=== PATIENT | male | born 2000 | race Caucasian/White ===

== ENCOUNTER 2020-11-17 14:06 | Outpatient (CLI) | payer MEDICAID, SELFPAY ==
--- NOTE | 2020-11-17 14:25 | XR_ITS ---
WS: [id number] RIGHT ANKLE: 3 VIEW(S) TECHNIQUE: AP, oblique(s) and lateral. HISTORY: M25.571 - Pain in right ankle and joints of right foot COMPARISON: 01/04/2019 Very slight defect in the cortex along the lateral talus seen only on the oblique image. This is a po ssible cortical injury. Otherwise no fractures are identified. No joint effusion or widening of the ankle mortise. No significant degenerative changes at the joint spaces. Moderate soft tissue edema along the lateral ankle. XR/XR ankle RT min 3V* [id number] IMPRESSION: 1. Possible cortical injury involving the lateral talus is seen only on the ob lique view. Otherwise no fracture. If further evaluation is necessary CT may pr ovide additional information. 2. Moderate soft tissue edema laterally.
== END 2020-11-17 14:07 | disposition home or self-care (01) ==
PROVIDERS: Visit Provider Podiatrist Foot & Ankle Surgery
DX: M25.571 Pain in right ankle and joints of right foot (principal); R60.0 Localized edema
CPT/HCPCS: 73610

== ENCOUNTER 2021-03-08 09:56 | Emergency (ER) | payer MEDICAID, SELFPAY ==
[2021-03-08] VITALS (13 sets, daily range): BP systolic 93–129; BP diastolic 53–83; PULSE 94–143; RESP 18–22; TEMP 36.6–37.1; O2SAT 95–99; BMI 25.1
--- NOTE | 2021-03-08 10:02 | ECG_ITS ---
[facility] Test Date: 2021-03-08 Pat Name: So Brenner Department: Room: Gender: Male Director Of Digital Platforms: : 2000 Requested By: Jany Ward Order Number: [id number] Leonard MD: Jane Pressley M.D. Measurements Intervals [place] Rate: 140 P: 62 ME: 148 QRS: -87 QRSD: 91 T: 66 QT: 364 QTc: 556 Interpretive Statements SINUS TACHYCARDIA LEFT AXIS DEVIATION [QRS AXIS < -30] POOR ANTERIOR R WAVE PROGRESSION No previous ECG available for comparison Electronically Signed On 03-08-2021 22:36:11 GETTER FILLER by Jane Pressley M.D. [id number]
--- NOTE | 2021-03-08 10:02 | XR_ITS ---
WS: [id number] Portable AP upright chest, 03/08/2021 Clinical Data: palpitations Comparison: None. Findings: No nodules, masses or effusions are seen. The heart is enlarged. The pulmonary vascularity is not increased. No pneumonia or pneumothorax is seen. XR/XR chest 1V portable [id number] Impression: Cardiomegaly
[2021-03-08 12:27] LABS: Basophils # 0.1 10^3/uL (0.0-0.1); Basophils % 0.9 %; Eosinophils % 0.1 %; Hematocrit 51.1 % (42.0-52.0); Hemoglobin 16.8 g/dL (11.7-16.6); Lymphocytes # 3.4 10^3/uL (1.5-6.5); Lymphocytes % 30.3 %; Mean Corpuscular HGB Conc 32.9 g/dL (30.0-36.0); Mean Corpuscular Hemoglobin 30.4 pg (28.0-34.0); Mean Corpuscular Volume 92.4 fl (80-94); Mean Platelet Volume 11.6 fL (7.4-10.4); Monocytes # 0.7 10^3/uL (0.2-0.9); Monocytes % 6.6 %; Neutrophils # 6.88 10^3/uL (1.8-8.0); Neutrophils % 61.9 %; Nucleated Red Blood Cells % 0 %; Platelet Count 204 10^3/cmm (130-400); Red Blood Count 5.53 10^6/uL (4.1-5.3); Red Cell Distribution Width 15.3 % (12.1-15.1); White Blood Count 11.1 10^3/uL (4.5-13.0)
[2021-03-08 12:44] LABS: Alanine Aminotransferase 55 U/L (0-41); Albumin Level 3.9 g/dL (3.5-5.2); Alkaline Phosphatase 54 IU/L (40-130); Anion Gap 21.9 (5-19); Aspartate Amino Transferase 57 U/L (0-40); Blood Urea Nitrogen 22 mg/dL (6-20); Calcium 9.3 mg/dL (8.5-10.5); Carbon Dioxide 21 mmol/L (22-29); Chloride 94 mmol/L (98-107); Globulin 2.6 g/dL (1.3-4.6); Glomerular Filtration Rate 64.6 mL/min (90-130); Glucose 87 mg/dL (65-115); Osmolality Calculated 277 mOsm/kg (285-295); Potassium 4.9 mmol/L (3.5-5.1); Sodium 132 mmol/L (136-145); Total Bilirubin 3.2 mg/dL (0.15-1.2); Total Protein 6.5 g/dL (6.6-8.7)
[2021-03-08 13:36] LABS: Troponin T (5th) Once 26 ng/L (0-15)
[2021-03-08 13:45] LABS: NT Pro B Type Natriuretic Pept 11573 pg/mL (0-125)
--- NOTE | 2021-03-08 14:23 | ED_ITS ---
Documented by User: Kenneth Samuels DO 03/09/21 06:40 HPI - General Adult General: Chief complaint: General Medical Stated complaint: Heart racing, throwing up Time Seen by Provider: 03/08/21 14:18 History of Present Illness: HPI narrative: 20-year-old male presents emergency room complaining of generalized fatigue palpitations elevated heart rate shortness of breath. Said this for about the last month and a half. Not really having any chest pain at this time. He does get short of breath when laying down or with any exertion. Recently stopped drinking about a month ago prior to that he was drinking up to a pint of vodka per day. He also has been throwing up a lot recently. He has been using some pxdm-cke-lneytll Primatene Mist and oxymetazoline nasal spray for upper respiratory symptoms. He denies any fever sweats or chills no hematochezia melena hematemesis coffee-ground emesis he has been mildly constipated. Interestingly he has a family history of several family members that have what sounds like by his descriptions cardiomyopathy and congestive heart failure. Onset (ago): day(s) Severity: moderate Relieving factors: rest Exacerbating factors: other (Orthopnea, exertion) Associated symptoms: Reports decreased appetite, malaise, nausea, vomiting and weakness; Deny chest pain, confusion, cough, diaphoresis, dyspnea, fevers/chills, headache(s), rash, palpitations, seizures, short of breath or syncope Treatments prior to arrival: none Review of Systems Const: Reports: malaise; Denies: diaphoresis ENMT: Denies: throat pain, ear or mastoid pain, nasal discharge or nasal congestion Card: Denies: chest pain, palpitations or syncope Resp: Denies: dyspnea GI: Reports: nausea and vomiting : Denies: flank pain, dysuria, urinary frequency or urinary urgency Skin/Breast: Denies: rash Neuro: Denies: headache(s) or confusion PFSH ED PFSH: Family History (Updated 03/08/21 @ 15:57 by Kenneth Samuels DO) Other CAD (coronary artery disease) Congestive heart failure Social History (Updated 03/08/21 @ 15:57 by Kenneth Samuels DO) Alcohol intake: former Physical Exam Const: COMMON NORMALS: no acute distress GENERAL APPEARANCE: cooperative and comfortable ORIENTATION/CONSCIOUSNESS: Yes awake, Yes oriented to person, Yes oriented to place and Yes oriented to time HENMT: COMMON NORMALS: normocephalic, atraumatic and hearing grossly normal bilaterally HEAD & SCALP: normocephalic and atraumatic Resp: COMMON NORMALS: normal respiratory effort, No retractions, No use of a ccessory muscles and clear to auscultation bilaterally AUSCULTATION: clear to auscultation bilaterally Cardio: COMMON NORMALS: No murmurs present (Cardio) RATE: tachycardic GI: COMMON NORMALS: Soft to palpation and No hepatosplenomegaly present AUSCULTATION: Yes normoactive bowel sounds PALPATION: Yes Soft to palpation, No Tenderness to palpation present (GI), No Guarding due to palpation present (GI) and Yes No hepatosplenomegaly present Extremity: COMMON NORMALS: normal to inspection, capillary refill normal, no clubbing, cyanosis or edema, no calf tenderness and no pedal edema Neuro: SENSORIUM/ORIENTATION: Yes oriented to person, Yes oriented to place and Yes oriented to time Skin: COMMON NORMALS: no rashes or lesions noted GENERAL SKIN EXAM: no rashes or lesions noted Course Vital Signs: Vital signs: Vital Signs Temperature 98.7 F 03/08/21 22:46 Pulse Rate 97 03/08/21 22:46 Respiratory Rate 18 03/08/21 22:46 Blood Pressure 101/72 03/08/21 22:46 Pulse Oximetry 96 03/08/21 22:46 MDM - General Adult MDM Narrative: Medical decision making narrative: Patient has significant cardiomyopathy with echocardiogram done in the emergency room read as having an EF of 12%. Discussed the hospitalist and with cardiology here patient may be a candidate for transplant we do not have the appropriate facilities to evaluate here given his age and the severity of the diagnosis recommend that he be transferred to a tertiary care center [facility] setting. We have several calls out. We are looking at the hospital for special care and [facility] as a nurse potential in place to transfer there pending approval. Care turned over to Dr. Delarosa at change of shift. Lab Data: Labs: Lab Results 03/08/21 03/08/21 03/08/21 12:10 12:10 12:10 WBC 11.1 10^3/uL 10^3 /uL (4.5-13.0) RBC 5.53 10^6/uL H 10 ^6/uL (4.1-5.3) Hgb 16.8 g/dL H g/dL (11.7-16.6) Hct 51.1 % % (42.0-52.0) MCV 92.4 fl fl (80-94) MCH 30.4 pg pg (28.0-34.0) MCHC 32.9 g/dL g/dL (30.0-36.0) RDW 15.3 % H % (12.1-15.1) Plt Count 204 10^3/cmm 10^3 /cmm (130-400) MPV 11.6 fL H fL (7.4-10.4) Neut % (Auto) 61.9 % % Lymph % (Auto) 30.3 % % [place] % (Auto) 6.6 % % Eos % (Auto) 0.1 % % Baso % (Auto) 0.9 % % Neut # (Auto) 6.88 10^3/uL 10^3 /uL (1.8-8.0) Lymph # (Auto) 3.4 10^3/uL 10^3/ uL (1.5-6.5) [place] # (Auto) 0.7 10^3/uL 10^3/ uL (0.2-0.9) Eos # (Auto) 0.0 10^3/uL 10^3/ uL (0.0-0.8) Baso # (Auto) 0.1 10^3/uL 10^3/ uL (0.0-0.1) Nucleated RBC % (a uto) 0 % % Nucleated RBCs # 0.0 /100WBC /100W BC Sodium 132 mmol/L L mmol /L (136-145) Potassium 4.9 mmol/L mmol/L (3.5-5.1) Chloride 94 mmol/L L mmol/ L (98-107) Carbon Dioxide 21 mmol/L L mmol/ L (22-29) Anion Gap 21.9 H (5-19) BUN 22 mg/dL H mg/dL (6-20) Creatinine 1.4 mg/dL H mg/dL (0.7-1.2) GFR Calculation 64.6 mL/min L mL/ min (90-130) Glucose 87 mg/dL mg/dL (65-115) Calculated Osmolal ity 277 mOsm/kg L mOs m/kg (285-295) Calcium 9.3 mg/dL mg/dL (8.5-10.5) Total Bilirubin 3.2 mg/dL H mg/dL (0.15-1.2) AST 57 U/L H U/L (0-40) ALT 55 U/L H U/L (0-41) Alkaline Phosphata se 54 IU/L IU/L (40-130) Troponin T Gen 5 n g/L 26 ng/L H ng/L (0-15) Troponin T Baselin e NT-Pro-B Natriuret Pep Total Protein 6.5 g/dL L g/dL (6.6-8.7) Albumin 3.9 g/dL g/dL (3.5-5.2) Globulin 2.6 g/dL g/dL (1.3-4.6) TSH Urine Opiates Scre en Ur Barbiturates Sc reen Ur Phencyclidine S crn Ur Amphetamines Sc reen U Benzodiazepines Scrn Urine Cocaine Scre en U Marijuana (THC) Screen SARS-CoV-2 Ag (Rap id) 03/08/21 03/08/21 03/08/21 12:10 12:10 14:45 WBC RBC Hgb Hct MCV MCH MCHC RDW Plt Count MPV Neut % (Auto) Lymph % (Auto) [place] % (Auto) Eos % (Auto) Baso % (Auto) Neut # (Auto) Lymph # (Auto) [place] # (Auto) Eos # (Auto) Baso # (Auto) Nucleated RBC % (a uto) Nucleated RBCs # Sodium Potassium Chloride Carbon Dioxide Anion Gap BUN Creatinine GFR Calculation Glucose Calculated Osmolal ity Calcium Total Bilirubin AST ALT Alkaline Phosphata se Troponin T Gen 5 n g/L Troponin T Baselin e NT-Pro-B Natriuret Pep 42408 pg/mL H pg/ mL (0-125) Total Protein Albumin Globulin TSH 6.72 uIU/mL H uIU /mL (0.27-4.20) Urine Opiates Scre en Ur Barbiturates Sc reen Ur Phencyclidine S crn Ur Amphetamines Sc reen U Benzodiazepines Scrn Urine Cocaine Scre en U Marijuana (THC) Screen SARS-CoV-2 Ag (Rap id) Negative (Negative) 03/08/21 03/08/21 18:50 19:25 WBC RBC Hgb Hct MCV MCH MCHC RDW Plt Count MPV Neut % (Auto) Lymph % (Auto) [place] % (Auto) Eos % (Auto) Baso % (Auto) Neut # (Auto) Lymph # (Auto) [place] # (Auto) Eos # (Auto) Baso # (Auto) Nucleated RBC % (a uto) Nucleated RBCs # Sodium Potassium Chloride Carbon Dioxide Anion Gap BUN Creatinine GFR Calculation Glucose Calculated Osmolal ity Calcium Total Bilirubin AST ALT Alkaline Phosphata se Troponin T Gen 5 n g/L Troponin T Baselin e 25 ng/L H ng/L (0-15) NT-Pro-B Natriuret Pep Total Protein Albumin Globulin TSH Urine Opiates Scre en Negative ng/mL ng /mL (Negative) Ur Barbiturates Sc reen Negative ng/mL ng /mL (Negative) Ur Phencyclidine S crn Negative ng/mL ng /mL (Negative) Ur Amphetamines Sc reen Negative ng/mL ng /mL (Negative) U Benzodiazepines Scrn Negative ng/mL ng /mL (Negative) Urine Cocaine Scre en Negative ng/mL ng /mL (Negative) U Marijuana (THC) Screen Positive ng/mL H ng/mL (Negative) SARS-CoV-2 Ag (Rap id) Critical Care Time Critical Care Time: Total Critical Care Time: 40 Attestation: The high probability of a clinically significant, sudden or life threatening deterioration of the patient's [cardiovascular] system(s) required my full and direct attention, intervention and personal management. The critical care time is as shown. This time is in addition to time spent performing any reported procedures but includes the following: [x] Data and vital sign review and interpretation [x] Patient assessment, examination and intervention [x] Documentation [x] Medication orders and management Discharge Plan Discharge Patient Disposition: Xfer Short-Term Hosp Clinical Impression: Heart failure Qualifiers: Heart failure type: unspecified Heart failure chronicity: acute Qualified Code(s): I50.9 - Heart failure, unspecified Condition: Stable Coding Level of Care Code ED Greenhouse Technician for [facility] Fwd Exam Detailed Documented by User: Duke Delarosa MD 03/08/21 20:06 HPI - General Adult General: Chief complaint: General Medical Stated complaint: Heart racing, throwing up Time Seen by Provider: 03/08/21 14:18 PFSH ED PFSH: Family History (Updated 03/08/21 @ 15:57 by Kenneth Samuels DO) Other CAD (coronary artery disease) Congestive heart failure Social History (Updated 03/08/21 @ 15:57 by Kenneth Samuels DO) Alcohol intake: former Course Vital Signs: Vital signs: Vital Signs Temperature 98.7 F 03/08/21 22:46 Pulse Rate 97 03/08/21 22:46 Respiratory Rate 18 03/08/21 22:46 Blood Pressure 101/72 03/08/21 22:46 Pulse Oximetry 96 03/08/21 22:46 MDM - General Adult MDM Narrative: Medical decision making narrative: Patient presents here with increasing dyspnea and chest pain and tachycardia is found to have severe heart failure with an ejection fraction of 12% with severe cardiomegaly want to transfer due to higher level of care needing higher level of cardiology care than we are able to provide here I spoke to churn operator margarine at [facility] and will transfer there at this time patient has been stable while here. Lab Data: Labs: Lab Results 03/08/21 03/08/21 03/08/21 12:10 12:10 12:10 WBC 11.1 10^3/uL 10^3 /uL (4.5-13.0) RBC 5.53 10^6/uL H 10 ^6/uL (4.1-5.3) Hgb 16.8 g/dL H g/dL (11.7-16.6) Hct 51.1 % % (42.0-52.0) MCV 92.4 fl fl (80-94) MCH 30.4 pg pg (28.0-34.0) MCHC 32.9 g/dL g/dL (30.0-36.0) RDW 15.3 % H % (12.1-15.1) Plt Count 204 10^3/cmm 10^3 /cmm (130-400) MPV 11.6 fL H fL (7.4-10.4) Neut % (Auto) 61.9 % % Lymph % (Auto) 30.3 % % [place] % (Auto) 6.6 % % Eos % (Auto) 0.1 % % Baso % (Auto) 0.9 % % Neut # (Auto) 6.88 10^3/uL 10^3 /uL (1.8-8.0) Lymph # (Auto) 3.4 10^3/uL 10^3/ uL (1.5-6.5) [place] # (Auto) 0.7 10^3/uL 10^3/ uL (0.2-0.9) Eos # (Auto) 0.0 10^3/uL 10^3/ uL (0.0-0.8) Baso # (Auto) 0.1 10^3/uL 10^3/ uL (0.0-0.1) Nucleated RBC % (a uto) 0 % % Nucleated RBCs # 0.0 /100WBC /100W BC Sodium 132 mmol/L L mmol /L (136-145) Potassium 4.9 mmol/L mmol/L (3.5-5.1) Chloride 94 mmol/L L mmol/ L (98-107) Carbon Dioxide 21 mmol/L L mmol/ L (22-29) Anion Gap 21.9 H (5-19) BUN 22 mg/dL H mg/dL (6-20) Creatinine 1.4 mg/dL H mg/dL (0.7-1.2) GFR Calculation 64.6 mL/min L mL/ min (90-130) Glucose 87 mg/dL mg/dL (65-115) Calculated Osmolal ity 277 mOsm/kg L mOs m/kg (285-295) Calcium 9.3 mg/dL mg/dL (8.5-10.5) Total Bilirubin 3.2 mg/dL H mg/dL (0.15-1.2) AST 57 U/L H U/L (0-40) ALT 55 U/L H U/L (0-41) Alkaline Phosphata se 54 IU/L IU/L (40-130) Troponin T Gen 5 n g/L 26 ng/L H ng/L (0-15) Troponin T Baselin e NT-Pro-B Natriuret Pep Total Protein 6.5 g/dL L g/dL (6.6-8.7) Albumin 3.9 g/dL g/dL (3.5-5.2) Globulin 2.6 g/dL g/dL (1.3-4.6) TSH Urine Opiates Scre en Ur Barbiturates Sc reen Ur Phencyclidine S crn Ur Amphetamines Sc reen U Benzodiazepines Scrn Urine Cocaine Scre en U Marijuana (THC) Screen SARS-CoV-2 Ag (Rap id) 03/08/21 03/08/21 03/08/21 12:10 12:10 14:45 WBC RBC Hgb Hct MCV MCH MCHC RDW Plt Count MPV Neut % (Auto) Lymph % (Auto) [place] % (Auto) Eos % (Auto) Baso % (Auto) Neut # (Auto) Lymph # (Auto) [place] # (Auto) Eos # (Auto) Baso # (Auto) Nucleated RBC % (a uto) Nucleated RBCs # Sodium Potassium Chloride Carbon Dioxide Anion Gap BUN Creatinine GFR Calculation Glucose Calculated Osmolal ity Calcium Total Bilirubin AST ALT Alkaline Phosphata se Troponin T Gen 5 n g/L Troponin T Baselin e NT-Pro-B Natriuret Pep 46395 pg/mL H pg/ mL (0-125) Total Protein Albumin Globulin TSH 6.72 uIU/mL H uIU /mL (0.27-4.20) Urine Opiates Scre en Ur Barbiturates Sc reen Ur Phencyclidine S crn Ur Amphetamines Sc reen U Benzodiazepines Scrn Urine Cocaine Scre en U Marijuana (THC) Screen SARS-CoV-2 Ag (Rap id) Negative (Negative) 03/08/21 03/08/21 18:50 19:25 WBC RBC Hgb Hct MCV MCH MCHC RDW Plt Count MPV Neut % (Auto) Lymph % (Auto) [place] % (Auto) Eos % (Auto) Baso % (Auto) Neut # (Auto) Lymph # (Auto) [place] # (Auto) Eos # (Auto) Baso # (Auto) Nucleated RBC % (a uto) Nucleated RBCs # Sodium Potassium Chloride Carbon Dioxide Anion Gap BUN Creatinine GFR Calculation Glucose Calculated Osmolal ity Calcium Total Bilirubin AST ALT Alkaline Phosphata se Troponin T Gen 5 n g/L Troponin T Baselin e 25 ng/L H ng/L (0-15) NT-Pro-B Natriuret Pep Total Protein Albumin Globulin TSH Urine Opiates Scre en Negative ng/mL ng /mL (Negative) Ur Barbiturates Sc reen Negative ng/mL ng /mL (Negative) Ur Phencyclidine S crn Negative ng/mL ng /mL (Negative) Ur Amphetamines Sc reen Negative ng/mL ng /mL (Negative) U Benzodiazepines Scrn Negative ng/mL ng /mL (Negative) Urine Cocaine Scre en Negative ng/mL ng /mL (Negative) U Marijuana (THC) Screen Positive ng/mL H ng/mL (Negative) SARS-CoV-2 Ag (Rap id) Critical Care Time Critical Care Time: Critical Care Time: Yes Total Critical Care Time: 36 Attestation: The high probability of a clinically significant, sudden or life threatening deterioration of the patient's [] system(s) required my full and direct attention, intervention and personal management. The critical care time is as shown. This time is in addition to time spent performing any reported procedures but includes the following: [x] Data and vital sign review and interpretation [x] Patient assessment, examination and intervention [x] Documentation [x] Medication orders and management Discharge Plan Discharge Patient Disposition: Xfer Short-Term Hosp Clinical Impression: Heart failure Qualifiers: Heart failure type: unspecified Heart failure chronicity: acute Qualified Code(s): I50.9 - Heart failure, unspecified Condition: Stable Coding Level of Care Code ED Greenhouse Technician for [place] Fwd Exam Detailed
[2021-03-08 15:24] LABS: SARS Covid-2 Antigen Negative (Negative)
[2021-03-08] MEDS: metoprolol tartrate 1 mg/1 mL SDV 5 mL 5 MG IVP (15:25)
[2021-03-08] MEDS: metoprolol tartrate 50 mg Tablet PO (15:26)
[2021-03-08] MEDS: ondansetron 2 mg/ML SDV 2 mL 4 MG IVP (15:43)
--- NOTE | 2021-03-08 16:32 | USCV_ITS ---
So Brenner Age: 20 Gender: M : 2000 Exam Date: 03/08/2021 16:53 Ordering Phys: Denis Magallanes MD Technologist: SHAHID [place] [facility] [place]ication: chf BP: 105 / 74 HR: 122 Rhythm: Sinus Technical Quality: Adequate MEASUREMENTS (Male / Female) Normal Values 2D ECHO LV Diastolic Diameter PLAX 6.4 cm 4.2 - 5.9 / 3.9 - 5.3 cm LV Systolic Diameter PLAX 6.0 cm IVS Diastolic Thickness 0.8 cm 0.6 - 1.0 / 0.6 - 0.9 cm IVS Systolic Thickness 0.8 cm LVPW Diastolic Thickness 0.9 cm 0.6 - 1.0 / 0.6 - 0.9 cm LVPW Systolic Thickness 1.0 cm LVOT Diameter 2.0 cm LV Ejection Fraction 2D Teich 12.0 % LV Ejection Fraction MOD 2C 29.0 % LV Ejection Fraction 2C AL 28.8 % LA Diameter 5.0 cm LA Width 4.8 cm LA Height 6.5 cm RA Width 5.5 cm RA Height 6.9 cm Aorta at Sinotubular Diameter 2.3 cm M-MODE Aortic Annulus Diameter 2.5 cm LA Ao Ratio MM 2.0 MV E Point Septal Separation 2.5 cm DOPPLER AV Peak Velocity 42.0 cm/s LVOT Peak Velocity 28.0 cm/s AV Area Cont Eq vti 2.4 cm squared AV Area Cont Eq pk 2.0 cm squared MV Peak Velocity 158.0 cm/s MV Area PHT 6.3 cm squared Mitral E to A Ratio 3.1 MV E' Velocity 68.0 cm/s Mitral E to MV E' Ratio 31.3 Mitral E to LV E' Lateral Ratio 33.7 Mitral E to LV E' Septal Ratio 29.2 TR Peak Velocity 166.7 cm/s TR Peak Gradient 11.1 mmHg TV Peak E Velocity 82.0 cm/s Right Atrial Pressure 15.0 mmHg Pulmonary Artery Systolic Pressu 26.1 mmHg PV Peak Velocity 57.0 cm/s RV Acceleration Time 0.1 s RV Ejection Time 0.2 s RV AcT/ET 0.3 FINDINGS Left Ventricle Severe diffuse hypokinesis left ventricle. LV ejection fraction around 12%. Dilated LV cavity Right Ventricle Dilated right ventricle with mildly diminished ejection fraction Right Atrium Moderately dilated Left Atrium Moderately dilated Mitral Valve Moderate mitral valve regurgitation. Aortic Valve Trileaflet with no gross abnormalities Tricuspid Valve No gross abnormalities noted. Severe tricuspid regurgitation Pulmonic Valve No gross abnormalities noted Pericardium No significant pericardial effusion Aorta Normal aortic annulus size. CONCLUSIONS Severe diffuse hypokinesis left ventricle. LV ejection fraction around 12%. Slightly diminished right ventricle ejection fraction Four-chamber dilatation Moderate mitral regurgitation Possible severe tricuspid regurgitation Estimated pulmonary artery peak systolic pressure of 26 mmHg No previous studies available for comparison Dr Macario Blanchard MD FAC (Electronically Signed) Final Date: 08 March 2021 17:52 S
--- NOTE | 2021-03-08 17:21 | PC.NURSE ---
patient lying on left side having echocardiogram done. patient in no obivous distress.
[2021-03-08 17:28] LABS: Thyroid Stimulating Hormone 6.72 uIU/mL (0.27-4.20)
--- NOTE | 2021-03-08 18:17 | ECG_ITS ---
[facility] Test Date: 2021-03-08 Pat Name: So Brenner Department: Room: Gender: Male Air Shovel Operator: : 2000 Requested By: Kenneth Phan Order Number: [id number] Leonard MD: Jane Pressley M.D. Measurements Intervals [place] Rate: 109 P: 76 MS: 172 QRS: 242 QRSD: 92 T: 60 QT: 368 QTc: 496 Interpretive Statements SINUS TACHYCARDIA INCOMPLETE RIGHT BUNDLE BRANCH BLOCK POSSIBLE RIGHT VENTRICULAR HYPERTROPHY MODERATE T-WAVE ABNORMALITY, CONSIDER LATERAL ISCHEMIA Compared to ECG 03/08/2021 10:27:58 Atrial abnormality now present T-wave abnormality now present Possible ischemia now present Left-axis deviation no longer present Myocardial infarct finding no longer present Electronically Signed On 03-08-2021 22:19:59 REFERRAL AND INFORMATION AIDE by Jane Pressley M.D. [id number]
[2021-03-08] MEDS: FUROsemide 10 mg/mL SDV 4mL 40 MG IVP (18:41)
[2021-03-08 19:41] LABS: Troponin(5th) Baseline 25 ng/L (0-15)
[2021-03-08 20:04] LABS: Amphetamines Screen Urine Negative (Negative); Barbiturates Screen Urine Negative (Negative); Benzodiazepines Screen Urine Negative (Negative); Cocaine Screen Urine Negative (Negative); Opiate Screen Urine Negative (Negative); PCP Screen Urine Negative (Negative); THC Screen Urine Positive (Negative)
--- NOTE | 2021-03-08 20:35 | PC.NURSE ---
patient resting comfortably in bed at this time. patient in no obvious distress. Patient family updated of transfer status. no questions/concerns noted. Patinet on personnel monitor. Side rails raised x 2 and bed in low, locked position. call light within reach.
--- NOTE | 2021-03-08 22:46 | PC.NURSE ---
[facility] ems here with [employer] fixed wing crew. Report given to Nelli Mcqueen RN . Patinet placed on stretcher. patient in no obvious distress. Family notified.
[2021-03-09 14:03] LABS: Lyme AB Screen <0.90 index
[2021-03-10 12:48] LABS: E. Chaffeensis AB IGG <1:64; E. Chaffeensis AB IGM <1:20
[2021-03-10 15:47] LABS: RMSF IGG NOT DETECTED; RMSF IGM NOT DETECTED
== END 2021-03-08 22:50 | disposition short-term general hospital (02) ==
PROVIDERS: Family Medicine; Physician Assistant; Emergency Provider Emergency Medicine
DX: I50.9 Heart failure, unspecified (principal); Z20.822 Contact with and (suspected) exposure to COVID-19
CPT/HCPCS: 71045; 80053; 80306; 83880; 84443; 84484; 85025; 86618; 86666; 86757; 87426; 93005; 93306; 96374; 96375; 99284; 99285; J1940; J2405; J3490

== ENCOUNTER 2021-03-29 16:31 | Inpatient (IN) | payer MEDICAID, SELFPAY ==
[2021-03-29] VITALS (8 sets, daily range): BP systolic 96–109; BP diastolic 56–80; PULSE 97–116; RESP 14–31; TEMP 36.2; O2SAT 96–100
--- NOTE | 2021-03-29 17:01 | XRR_ITS ---
PROCEDURE INFORMATION: Exam: XR Chest Exam date and time: 03/29/2021 5:01 PM Age: 20 years old Clinical indication: Other: Chf TECHNIQUE: Imaging protocol: XR of the chest. Views: 1 view. COMPARISON: No relevant prior studies available. FINDINGS: Lungs: Unremarkable. No consolidation. Pleural spaces: Unremarkable. No pleural effusion. No pneumothorax. Heart/Mediastinum: Heart size is within normal limits for AP technique. Bones/joints: Unremarkable. XR/XR chest 1V portable [id number] IMPRESSION: No acute findings.
--- NOTE | 2021-03-29 17:18 | ECG_ITS ---
[facility] Test Date: 2021-03-29 Pat Name: So Brenner Department: Room: Gender: Male Jar Capper: : 2000 Requested By: Nadir Robles Order Number: [id number] Reading MD: JUAN M SHI Measurements Intervals [place] Rate: 122 P: 70 CT: 168 QRS: -65 QRSD: 85 T: 58 QT: 399 QTc: 570 Interpretive Statements SINUS TACHYCARDIA LEFT AXIS DEVIATION [QRS AXIS < -30] LOW QRS VOLTAGE IN PRECORDIAL LEADS [QRS DEFLECTION < 1.0 mV IN CHEST LEADS] POSSIBLE RIGHT VENTRICULAR CONDUCTION DELAY [RSR (QR) IN V1/V2] POSSIBLE ANTERIOR MYOCARDIAL INFARCTION , PROBABLY OLD [30 ms Q WAVE IN V3/V4, OR R < 0.2 mV IN V4] Compared to ECG 03/08/2021 18:52:31 Left-axis deviation now present Low QRS voltage now present Myocardial infarct finding now present Incomplete right bundle-branch block no longer present Electronically Signed On 03-29-2021 20:53:12 DESIGNER AND PATTERNMAKER by JUAN M SHI [id number]
--- NOTE | 2021-03-29 17:39 | ED_ITS ---
Documented by User: Kenneth Samuels DO 04/07/21 08:32 HPI - Chest Pain General: Chief Complaint: ER Hold Stated Complaint: Kidney failure, has had Congestive heart failure Time Seen by Provider: 03/29/21 17:22 History of Present Illness: HPI narrative: 20-year-old male presents to the emergency room with complaint of chest dis comfort and extreme shortness of breath. Patient was in our ER approximately 4 to 6 weeks ago and was noted on echocardiogram to have an EF of 12% was thought to be related to alcoholic cardiomyopathy he [facility] [place]. He was discharged from there with a LifeVest and has not discharged. He comes in today because he was recently found to be hyperkalemic they stopped his potassium supplement and he was advised to go to the emergency room. He is not had any swelling in his legs they also recently stopped his losartan he currently is taking Lasix and metoprolol. He denies any chest pain. He was going to establish with a artillery officer in [place]. Pertinent past history: other (Alcoholic cardiomyopathy) Associated symptoms: Deny abdominal pain, dyspnea, fever(s), nausea or vomiting Review of Systems Const: Denies: fever(s), chills, body aches, change in appetite, fatigue or malaise ENMT: Denies: throat pain, ear or mastoid pain, nasal discharge or nasal congestion Card: Reports: edema, dyspnea on exertion and orthopnea; Denies: chest pain Resp: Denies: dyspnea, productive cough or non-productive cough GI: Denies: abdominal pain, nausea, vomiting, hematemesis, coffee ground emesi s, diarrhea, constipation, bloating, hematochezia or melena : Denies: flank pain, dysuria, urinary frequency or urinary urgency Skin/Breast: Denies: rash or pruritus PFSH ED PFSH: Family History Mother Congestive heart failure, Onset Age: 40 She had an ICD implantation and of? Congestive heart failure. Grandmother Congestive heart failure, Onset Age: 60 She is diagnosed with congestive heart failure. Details are not available Other CAD (coronary artery disease) Social History Alcohol intake: former Physical Exam Const: COMMON NORMALS: no acute distress GENERAL APPEARANCE: cooperative and comfortable ORIENTATION/CONSCIOUSNESS: Yes awake, Yes oriented to person, Yes oriented to place and Yes oriented to time HENMT: COMMON NORMALS: normocephalic, atraumatic and hearing grossly normal bilaterally HEAD & SCALP: normocephalic and atraumatic Resp: COMMON NORMALS: normal respiratory effort, No retractions and No use of accessory muscles AUSCULTATION: crackles and diminished lung sounds Cardio: COMMON NORMALS: regular rate and regular rhythm PALPATION: other (S3) RATE: regular rate RHYTHM: regular rhythm GI: COMMON NORMALS: Soft to palpation and No hepatosplenomegaly present AUSCULTATION: Yes normoactive bowel sounds PALPATION: Yes Soft to palpation, No Tenderness to palpation present (GI), No Guarding due to palpation present (GI) and Yes No hepatosplenomegaly present Extremity: COMMON NORMALS: normal to inspection, capillary refill normal and no calf tenderness GENERAL: Yes edema (Lower extremity edema +1) Neuro: SENSORIUM/ORIENTATION: Yes oriented to person, Yes oriented to place and Yes oriented to time Skin: COMMON NORMALS: no rashes or lesions noted GENERAL SKIN EXAM: no rashes or lesions noted Course Vital Signs: Vital signs: Vital Signs Temperature 98.3 F 04/03/21 15:18 Pulse Rate 90 04/04/21 07:00 Respiratory Rate 28 H 04/04/21 07:00 Blood Pressure 105/60 04/04/21 07:00 Pulse Oximetry 92 04/04/21 07:00 MDM - Chest Pain MDM Narrative Medical decision making narrative: Patient has significant alcoholic cardiomyopathy with severe ejection fraction loss. Last EF was 10 to 15%. We will start him on dobutamine and discussed with Dr. Blanchard he is on-call for cardiology recommends just dobutamine drip at this time will admit to ICU we are hoping to transfer but patient will likely need to stay here until a bed becomes available at another facility. Some laboratory work is pending care turned over to Dr. Delarosa at change shift see his note final diagnosis and disposition Medical Records Attestation: I reviewed the patient's medical records. Lab Data Attestation: I reviewed the patient's lab results. Result diagrams: 04/04/21 04:20 04/04/21 04:20 Labs: Lab Results 03/29/21 03/29/21 03/29/21 17:38 17:38 17:38 WBC 11.8 10^3/uL 10^3/uL (4.5-13.0) RBC 5.80 10^6/uL H 10^6/uL (4.1-5.3) Hgb 17.1 g/dL H g/dL (11.7-16.6) Hct 52.1 % H % (42.0-52.0) MCV 89.8 fl fl (80-94) MCH 29.5 pg pg (28.0-34.0) MCHC 32.8 g/dL g/dL (30.0-36.0) RDW 18.1 % H % (12.1-15.1) Plt Count 296 10^3/cmm 10^3/cmm (130-400) MPV 10.7 fL H fL (7.4-10.4) Neut % (Auto) 55.7 % % Lymph % (Auto) 37.3 % % [place] % (Auto) 5.3 % % Eos % (Auto) 0.7 % % Baso % (Auto) 0.7 % % Neut # (Auto) 6.57 10^3/uL 10^3/uL (1.8-8.0) Lymph # (Auto) 4.4 10^3/uL 10^3/uL (1.5-6.5) [place] # (Auto) 0.6 10^3/uL 10^3/uL (0.2-0.9) Eos # (Auto) 0.1 10^3/uL 10^3/uL (0.0-0.8) Baso # (Auto) 0.1 10^3/uL 10^3/uL (0.0-0.1) Nucleated RBC % (auto) 0 % % Nucleated RBCs # 0.0 /100WBC /100WBC PT INR APTT Sodium 133 mmol/L L mmol/L (136-145) Potassium 4.5 mmol/L mmol/L (3.5-5.1) Chloride 94 mmol/L L mmol/L (98-107) Carbon Dioxide 17 mmol/L L mmol/L (22-29) Anion Gap 26.5 H (5-19) BUN 19 mg/dL mg/dL (6-20) Creatinine 1.3 mg/dL H mg/dL (0.7-1.2) GFR Calculation 70.4 mL/min L mL/min (90-130) Glucose 86 mg/dL mg/dL (65-115) Calculated Osmolality 278 mOsm/kg L mOsm/kg (285-295) Lactate Calcium 8.9 mg/dL mg/dL (8.5-10.5) Magnesium 2.0 mg/dL mg/dL (1.7-2.3) Total Bilirubin 2.7 mg/dL H mg/dL (0.15-1.2) AST 30 U/L U/L (0-40) ALT 32 U/L U/L (0-41) Alkaline Phosphatase 82 IU/L IU/L (40-130) Ammonia Troponin T Baseline 20 ng/L H ng/L (0-15) Troponin T 120 Minute Delta Troponin T Troponin T Hi Sens 6Hr Troponin T Hi Sens 6Hr Delta NT-Pro-B Natriuret Pep 84247 pg/mL H pg/mL (0-125) Total Protein 6.7 g/dL g/dL (6.6-8.7) Albumin 4.0 g/dL g/dL (3.5-5.2) Globulin 2.7 g/dL g/dL (1.3-4.6) Urine Color Urine Appearance Urine pH Ur Specific [place] Urine Protein Urine Glucose (UA) Urine Ketones Urine Blood Urine Nitrate Urine Bilirubin Urine Urobilinogen Ur Leukocyte Esterase Urine RBC Urine WBC Ur Squamous Epith Cells Amorphous Sediment Urine Bacteria Hyaline Casts Urine Mucus SARS-CoV-2 Ag (Rapid) 03/29/21 03/29/21 03/29/21 17:38 17:38 19:20 WBC RBC Hgb Hct MCV MCH MCHC RDW Plt Count MPV Neut % (Auto) Lymph % (Auto) [place] % (Auto) Eos % (Auto) Baso % (Auto) Neut # (Auto) Lymph # (Auto) [place] # (Auto) Eos # (Auto) Baso # (Auto) Nucleated RBC % (auto) Nucleated RBCs # PT 21.90 SECONDS H SECONDS (12.1-14.9) INR 1.87 H (0.8-1.2) APTT 29.8 SECONDS SECONDS (23.9-36.7) Sodium Potassium Chloride Carbon Dioxide Anion Gap BUN Creatinine GFR Calculation Glucose Calculated Osmolality Lactate 4.3 mmol/L H* mmol/L (0.5-2.2) Calcium Magnesium Total Bilirubin AST ALT Alkaline Phosphatase Ammonia Troponin T Baseline Troponin T 120 Minute 18.70 ng/L H ng/L (0-15) Delta Troponin T -1.30 ABS# L ABS# (0-10) Troponin T Hi Sens 6Hr Troponin T Hi Sens 6Hr Delta NT-Pro-B Natriuret Pep Total Protein Albumin Globulin Urine Color Urine Appearance Urine pH Ur Specific [place] Urine Protein Urine Glucose (UA) Urine Ketones Urine Blood Urine Nitrate Urine Bilirubin Urine Urobilinogen Ur Leukocyte Esterase Urine RBC Urine WBC Ur Squamous Epith Cells Amorphous Sediment Urine Bacteria Hyaline Casts Urine Mucus SARS-CoV-2 Ag (Rapid) 03/29/21 03/29/21 03/29/21 19:20 21:55 22:39 WBC RBC Hgb Hct MCV MCH MCHC RDW Plt Count MPV Neut % (Auto) Lymph % (Auto) [place] % (Auto) Eos % (Auto) Baso % (Auto) Neut # (Auto) Lymph # (Auto) [place] # (Auto) Eos # (Auto) Baso # (Auto) Nucleated RBC % (auto) Nucleated RBCs # PT INR APTT Sodium Potassium Chloride Carbon Dioxide Anion Gap BUN Creatinine GFR Calculation Glucose Calculated Osmolality Lactate Calcium Magnesium Total Bilirubin AST ALT Alkaline Phosphatase Ammonia 15 umol/L L umol/L (16-60) Troponin T Baseline Troponin T 120 Minute Delta Troponin T Troponin T Hi Sens 6Hr 17.77 ng/L H ng/L (0-15) Troponin T Hi Sens 6Hr Delta -2.23 ng/L L ng/L (0-12) NT-Pro-B Natriuret Pep Total Protein Albumin Globulin Urine Color Urine Appearance Urine pH Ur Specific [place] Urine Protein Urine Glucose (UA) Urine Ketones Urine Blood Urine Nitrate Urine Bilirubin Urine Urobilinogen Ur Leukocyte Esterase Urine RBC Urine WBC Ur Squamous Epith Cells Amorphous Sediment Urine Bacteria Hyaline Casts Urine Mucus SARS-CoV-2 Ag (Rapid) Negative (Negative) 03/29/21 22:45 WBC RBC Hgb Hct MCV MCH MCHC RDW Plt Count MPV Neut % (Auto) Lymph % (Auto) [place] % (Auto) Eos % (Auto) Baso % (Auto) Neut # (Auto) Lymph # (Auto) [place] # (Auto) Eos # (Auto) Baso # (Auto) Nucleated RBC % (auto) Nucleated RBCs # PT INR APTT Sodium Potassium Chloride Carbon Dioxide Anion Gap BUN Creatinine GFR Calculation Glucose Calculated Osmolality Lactate Calcium Magnesium Total Bilirubin AST ALT Alkaline Phosphatase Ammonia Troponin T Baseline Troponin T 120 Minute Delta Troponin T Troponin T Hi Sens 6Hr Troponin T Hi Sens 6Hr Delta NT-Pro-B Natriuret Pep Total Protein Albumin Globulin Urine Color Yellow (Yellow) Urine Appearance Clear (CLEAR) Urine pH 5 (5-7) Ur Specific [place] 1.025 (1.005-1.030) Urine Protein Neg (Negative) Urine Glucose (UA) Norm (Normal) Urine Ketones Negative (Negative) Urine Blood 2+ H (Negative) Urine Nitrate Negative (Negative) Urine Bilirubin 1+ H (Negative) Urine Urobilinogen 1 mg/dL H mg/dL (Negative) Ur Leukocyte Esterase Trace H (Negative) Urine RBC 0-4 /hpf H /hpf (0-2) Urine WBC 10-15 /hpf H /hpf (0-5) Ur Squamous Epith Cells 0-4 /hpf H /hpf (0-5) Amorphous Sediment Not Reportable Urine Bacteria Trace /hpf /hpf (NONE) Hyaline Casts 0-4 /lpf H /lpf Urine Mucus 1+ /hpf /hpf SARS-CoV-2 Ag (Rapid) Discharge Plan Discharge Patient Disposition: Admitted As Inpatient Admit Provider: Kirk Bustos Clinical Impression: Heart failure with reduced ejection fraction Condition: Stable Coding Level of Care Code ED Loom Fixer Helper for Chg Fwd Exam Comprehensive Documented by User: Duke Delarosa MD 03/30/21 02:26 HPI - Chest Pain General: Chief Complaint: ER Hold Stated Complaint: Kidney failure, has had Congestive heart failure Time Seen by Provider: 03/29/21 17:22 History of Present Illness: Associated symptoms: Reports nausea and vomiting; Deny dyspnea or fever(s) Review of Systems Const: Denies: fever(s), chills, body aches or change in appetite Eyes: Denies: blurry vision or eye discomfort ENMT: Denies: throat pain or dental pain Card: Reports: chest pain Resp: Denies: dyspnea GI: Reports: nausea and vomiting : Denies: dysuria Musc: Denies: neck pain or back pain Skin/Breast: Denies: rash Neuro: Denies: headache(s) Psych: Denies: depression [place]/Lymph: Denies: easy bruising All/Imm: Denies: urticaria PFSH ED PFSH: Family History Mother Congestive heart failure, Onset Age: 40 She had an ICD implantation and of? Congestive heart failure. Grandmother Congestive heart failure, Onset Age: 60 She is diagnosed with congestive heart failure. Details are not available Other CAD (coronary artery disease) Social History Alcohol intake: former Physical Exam Const: COMMON NORMALS: no acute distress, patient oriented x3 and healthy appearing HENMT: COMMON NORMALS: normocephalic and atraumatic HEAD & SCALP: normocephalic and atraumatic Eye: COMMON NORMALS: Equal, round and reactive pupils present and EOMs intact bilaterally PUPIL: Yes Equal, round and reactive pupils present Neck/C-Spine: COMMON NORMALS: full ROM and supple Chest: COMMONS NORMALS: normal inspection of the chest and normal palpation of entire chest wall Resp: COMMON NORMALS: normal respiratory effort, No retractions, No use of accessory muscles and clear to auscultation bilaterally AUSCULTATION: clear to auscultation bilaterally Cardio: COMMON NORMALS: regular rate, regular rhythm and No murmurs present (Cardio) RATE: regular rate RHYTHM: regular rhythm GI: COMMON NORMALS: Normal to inspection, nondistended, normoactive bowel sounds present, Soft to palpation, non-tender and no masses PALPATION: Yes Soft to palpation Extremity: COMMON NORMALS: normal to inspection and full ROM Neuro: COMMON NORMALS: patient oriented x3, moves all extremities and no focal motor deficits Psych: COMMON NORMALS: mental status grossly normal, Normal thought process present and cooperative THOUGHT PROCESS: Normal thought process present Skin: COMMON NORMALS: no rashes or lesions noted and no wounds GENERAL SKIN EXAM: no rashes or lesions noted Course Vital Signs: Vital signs: Vital Signs Temperature 98.3 F 04/03/21 15:18 Pulse Rate 90 04/04/21 07:00 Respiratory Rate 28 H 04/04/21 07:00 Blood Pressure 105/60 04/04/21 07:00 Pulse Oximetry 92 04/04/21 07:00 MDM - Chest Pain MDM Narrative Medical decision making narrative: Patient presents here with vomiting along with chest pain he has recent history of cardio myopathy with ejection fraction of 12 to 15% patient started on dobutamine drip given a low-dose IV fluids he appears to be dehydrated likely from his vomiting with improvement after the IV fluids his heart rates improved blood pressure is improved as well. Did attempt to transfer him for higher level of care to try to transfer him [place] [facility] [place] where he is following with cardiology there there is no bed availability I spoke to artillery officer Dr. Blanchard here is consulted will admit here to the ICU. He has been stable while here. Lab Data Result diagrams: 04/04/21 04:20 04/04/21 04:20 Labs: Lab Results 03/29/21 03/29/21 03/29/21 17:38 17:38 17:38 WBC 11.8 10^3/uL 10^3/uL (4.5-13.0) RBC 5.80 10^6/uL H 10^6/uL (4.1-5.3) Hgb 17.1 g/dL H g/dL (11.7-16.6) Hct 52.1 % H % (42.0-52.0) MCV 89.8 fl fl (80-94) MCH 29.5 pg pg (28.0-34.0) MCHC 32.8 g/dL g/dL (30.0-36.0) RDW 18.1 % H % (12.1-15.1) Plt Count 296 10^3/cmm 10^3/cmm (130-400) MPV 10.7 fL H fL (7.4-10.4) Neut % (Auto) 55.7 % % Lymph % (Auto) 37.3 % % [place] % (Auto) 5.3 % % Eos % (Auto) 0.7 % % Baso % (Auto) 0.7 % % Neut # (Auto) 6.57 10^3/uL 10^3/uL (1.8-8.0) Lymph # (Auto) 4.4 10^3/uL 10^3/uL (1.5-6.5) [place] # (Auto) 0.6 10^3/uL 10^3/uL (0.2-0.9) Eos # (Auto) 0.1 10^3/uL 10^3/uL (0.0-0.8) Baso # (Auto) 0.1 10^3/uL 10^3/uL (0.0-0.1) Nucleated RBC % (auto) 0 % % Nucleated RBCs # 0.0 /100WBC /100WBC PT INR APTT Sodium 133 mmol/L L mmol/L (136-145) Potassium 4.5 mmol/L mmol/L (3.5-5.1) Chloride 94 mmol/L L mmol/L (98-107) Carbon Dioxide 17 mmol/L L mmol/L (22-29) Anion Gap 26.5 H (5-19) BUN 19 mg/dL mg/dL (6-20) Creatinine 1.3 mg/dL H mg/dL (0.7-1.2) GFR Calculation 70.4 mL/min L mL/min (90-130) Glucose 86 mg/dL mg/dL (65-115) Calculated Osmolality 278 mOsm/kg L mOsm/kg (285-295) Lactate Calcium 8.9 mg/dL mg/dL (8.5-10.5) Magnesium 2.0 mg/dL mg/dL (1.7-2.3) Total Bilirubin 2.7 mg/dL H mg/dL (0.15-1.2) AST 30 U/L U/L (0-40) ALT 32 U/L U/L (0-41) Alkaline Phosphatase 82 IU/L IU/L (40-130) Ammonia Troponin T Baseline 20 ng/L H ng/L (0-15) Troponin T 120 Minute Delta Troponin T Troponin T Hi Sens 6Hr Troponin T Hi Sens 6Hr Delta NT-Pro-B Natriuret Pep 64944 pg/mL H pg/mL (0-125) Total Protein 6.7 g/dL g/dL (6.6-8.7) Albumin 4.0 g/dL g/dL (3.5-5.2) Globulin 2.7 g/dL g/dL (1.3-4.6) Urine Color Urine Appearance Urine pH Ur Specific [place] Urine Protein Urine Glucose (UA) Urine Ketones Urine Blood Urine Nitrate Urine Bilirubin Urine Urobilinogen Ur Leukocyte Esterase Urine RBC Urine WBC Ur Squamous Epith Cells Amorphous Sediment Urine Bacteria Hyaline Casts Urine Mucus SARS-CoV-2 Ag (Rapid) 03/29/21 03/29/21 03/29/21 17:38 17:38 19:20 WBC RBC Hgb Hct MCV MCH MCHC RDW Plt Count MPV Neut % (Auto) Lymph % (Auto) [place] % (Auto) Eos % (Auto) Baso % (Auto) Neut # (Auto) Lymph # (Auto) [place] # (Auto) Eos # (Auto) Baso # (Auto) Nucleated RBC % (auto) Nucleated RBCs # PT 21.90 SECONDS H SECONDS (12.1-14.9) INR 1.87 H (0.8-1.2) APTT 29.8 SECONDS SECONDS (23.9-36.7) Sodium Potassium Chloride Carbon Dioxide Anion Gap BUN Creatinine GFR Calculation Glucose Calculated Osmolality Lactate 4.3 mmol/L H* mmol/L (0.5-2.2) Calcium Magnesium Total Bilirubin AST ALT Alkaline Phosphatase Ammonia Troponin T Baseline Troponin T 120 Minute 18.70 ng/L H ng/L (0-15) Delta Troponin T -1.30 ABS# L ABS# (0-10) Troponin T Hi Sens 6Hr Troponin T Hi Sens 6Hr Delta NT-Pro-B Natriuret Pep Total Protein Albumin Globulin Urine Color Urine Appearance Urine pH Ur Specific [place] Urine Protein Urine Glucose (UA) Urine Ketones Urine Blood Urine Nitrate Urine Bilirubin Urine Urobilinogen Ur Leukocyte Esterase Urine RBC Urine WBC Ur Squamous Epith Cells Amorphous Sediment Urine Bacteria Hyaline Casts Urine Mucus SARS-CoV-2 Ag (Rapid) 03/29/21 03/29/21 03/29/21 19:20 21:55 22:39 WBC RBC Hgb Hct MCV MCH MCHC RDW Plt Count MPV Neut % (Auto) Lymph % (Auto) [place] % (Auto) Eos % (Auto) Baso % (Auto) Neut # (Auto) Lymph # (Auto) [place] # (Auto) Eos # (Auto) Baso # (Auto) Nucleated RBC % (auto) Nucleated RBCs # PT INR APTT Sodium Potassium Chloride Carbon Dioxide Anion Gap BUN Creatinine GFR Calculation Glucose Calculated Osmolality Lactate Calcium Magnesium Total Bilirubin AST ALT Alkaline Phosphatase Ammonia 15 umol/L L umol/L (16-60) Troponin T Baseline Troponin T 120 Minute Delta Troponin T Troponin T Hi Sens 6Hr 17.77 ng/L H ng/L (0-15) Troponin T Hi Sens 6Hr Delta -2.23 ng/L L ng/L (0-12) NT-Pro-B Natriuret Pep Total Protein Albumin Globulin Urine Color Urine Appearance Urine pH Ur Specific [place] Urine Protein Urine Glucose (UA) Urine Ketones Urine Blood Urine Nitrate Urine Bilirubin Urine Urobilinogen Ur Leukocyte Esterase Urine RBC Urine WBC Ur Squamous Epith Cells Amorphous Sediment Urine Bacteria Hyaline Casts Urine Mucus SARS-CoV-2 Ag (Rapid) Negative (Negative) 03/29/21 22:45 WBC RBC Hgb Hct MCV MCH MCHC RDW Plt Count MPV Neut % (Auto) Lymph % (Auto) [place] % (Auto) Eos % (Auto) Baso % (Auto) Neut # (Auto) Lymph # (Auto) [place] # (Auto) Eos # (Auto) Baso # (Auto) Nucleated RBC % (auto) Nucleated RBCs # PT INR APTT Sodium Potassium Chloride Carbon Dioxide Anion Gap BUN Creatinine GFR Calculation Glucose Calculated Osmolality Lactate Calcium Magnesium Total Bilirubin AST ALT Alkaline Phosphatase Ammonia Troponin T Baseline Troponin T 120 Minute Delta Troponin T Troponin T Hi Sens 6Hr Troponin T Hi Sens 6Hr Delta NT-Pro-B Natriuret Pep Total Protein Albumin Globulin Urine Color Yellow (Yellow) Urine Appearance Clear (CLEAR) Urine pH 5 (5-7) Ur Specific [place] 1.025 (1.005-1.030) Urine Protein Neg (Negative) Urine Glucose (UA) Norm (Normal) Urine Ketones Negative (Negative) Urine Blood 2+ H (Negative) Urine Nitrate Negative (Negative) Urine Bilirubin 1+ H (Negative) Urine Urobilinogen 1 mg/dL H mg/dL (Negative) Ur Leukocyte Esterase Trace H (Negative) Urine RBC 0-4 /hpf H /hpf (0-2) Urine WBC 10-15 /hpf H /hpf (0-5) Ur Squamous Epith Cells 0-4 /hpf H /hpf (0-5) Amorphous Sediment Not Reportable Urine Bacteria Trace /hpf /hpf (NONE) Hyaline Casts 0-4 /lpf H /lpf Urine Mucus 1+ /hpf /hpf SARS-CoV-2 Ag (Rapid) EKG Data^ EKG 1: Attestation: I personally reviewed and interpreted this EKG as follows: EKG interpretation date: 03/29/21 EKG interpretation time: 17:40 Interpretation: sinus tach hr [address] or t wave abnormalities qrs 90 qtc 402 EKG 2: Attestation: I personally reviewed and interpreted this EKG as follows: EKG interpretation date: 03/29/21 EKG interpretation time: 19:01 Interpretation: sinus tach hr [address] or t wave abnormalities qrs 93 qtc 423 Critical Care Time Critical Care Time: Critical Care Time: Yes Total Critical Care Time: 45 Attestation: The high probability of a clinically significant, sudden or life threatening deterioration of the patient's [CV] system(s) required my full and direct attention, intervention and personal management. The critical care time is as shown. This time is in addition to time spent performing any reported procedures but includes the following: [x] Data and vital sign review and interpretation [x] Patient assessment, examination and intervention [x] Documentation [x] Medication orders and management Discharge Plan Discharge Patient Disposition: Admitted As Inpatient Admit Provider: Kirk Bustos Clinical Impression: Heart failure with reduced ejection fraction Condition: Stable Coding Level of Care Code ED Loom Fixer Helper for Chg Fwd Exam Comprehensive
[2021-03-29 17:51] LABS: Basophils # 0.1 10^3/uL (0.0-0.1); Basophils % 0.7 %; Eosinophils # 0.1 10^3/uL (0.0-0.8); Eosinophils % 0.7 %; Hematocrit 52.1 % (42.0-52.0); Hemoglobin 17.1 g/dL (11.7-16.6); Lymphocytes # 4.4 10^3/uL (1.5-6.5); Lymphocytes % 37.3 %; Mean Corpuscular HGB Conc 32.8 g/dL (30.0-36.0); Mean Corpuscular Hemoglobin 29.5 pg (28.0-34.0); Mean Corpuscular Volume 89.8 fl (80-94); Mean Platelet Volume 10.7 fL (7.4-10.4); Monocytes # 0.6 10^3/uL (0.2-0.9); Monocytes % 5.3 %; Neutrophils # 6.57 10^3/uL (1.8-8.0); Neutrophils % 55.7 %; Nucleated Red Blood Cells % 0 %; Platelet Count 296 10^3/cmm (130-400); Red Cell Distribution Width 18.1 % (12.1-15.1); White Blood Count 11.8 10^3/uL (4.5-13.0)
[2021-03-29] MEDS: DOBUTamine drip 500 MG/250 ML PREMIX 11.57 MG IV (17:58)
[2021-03-29 18:14] LABS: INR 1.87 (0.8-1.2)
[2021-03-29 18:15] LABS: Partial Thromboplastin Time 29.8 SECONDS (23.9-36.7)
--- NOTE | 2021-03-29 18:35 | USCV_ITS ---
So Brenner Age: 20 Gender: M : 2000 Exam Date: 03/29/2021 19:55 Ordering Phys: Duke Delarosa MD Technologist: SHAHID [place] [facility] [place]ication: c/o shortness of breath. Strong family hx of CHF. Mother recently of heart failure. Patient states that he used to drink alcohol heavily. No history of cardiac intervention. Patient is wearing a defibrillator. BP: 109 / 68 HR: 104 Rhythm: Sinus Technical Quality: Adequate MEASUREMENTS (Male / Female) Normal Values 2D ECHO LV Diastolic Diameter PLAX 6.1 cm 4.2 - 5.9 / 3.9 - 5.3 cm LV Systolic Diameter PLAX 5.7 cm IVS Diastolic Thickness 1.0 cm 0.6 - 1.0 / 0.6 - 0.9 cm IVS Systolic Thickness 1.2 cm LVPW Diastolic Thickness 1.1 cm 0.6 - 1.0 / 0.6 - 0.9 cm LVPW Systolic Thickness 1.0 cm LVOT Diameter 2.2 cm LV Ejection Fraction 2D Teich 16.0 % LV Ejection Fraction MOD 2C 22.9 % LV Ejection Fraction 2C AL 24.1 % LA Diameter 5.5 cm LA Width 4.9 cm LA Height 6.4 cm RA Width 5.6 cm RA Height 7.0 cm Aorta at Sinotubular Diameter 2.5 cm M-MODE Aortic Annulus Diameter 2.8 cm LA Ao Ratio MM 1.9 MV E Point Septal Separation 2.0 cm DOPPLER AV Peak Velocity 67.0 cm/s LVOT Peak Velocity 55.0 cm/s AV Area Cont Eq vti 3.4 cm squared AV Area Cont Eq pk 3.0 cm squared MV Peak Velocity 95.0 cm/s MV Area PHT 5.2 cm squared Mitral E to A Ratio 2.1 MV E' Velocity 52.5 cm/s Mitral E to MV E' Ratio 11.5 Mitral E to LV E' Lateral Ratio 7.9 Mitral E to LV E' Septal Ratio 20.6 TR Peak Velocity 248.0 cm/s TR Peak Gradient 24.6 mmHg TV Peak E Velocity 95.0 cm/s Right Atrial Pressure 20.0 mmHg Pulmonary Artery Systolic Pressu 44.6 mmHg PV Peak Velocity 57.0 cm/s RV Acceleration Time 0.1 s RV Ejection Time 0.2 s RV AcT/ET 0.3 FINDINGS Left Ventricle Severe diffuse hypokinesis of the left ventricle with an ejection fraction of around 10 to 15%. Mildly dilated LV cavity Right Ventricle Possible catheter tip in the right ventricle. Normal RV size and ejection fraction Right Atrium Moderately dilated right atrium Left Atrium Moderately dilated left atrium Mitral Valve Moderately severe mitral regurgitation with the regurgitant jet directed posterolaterally Aortic Valve Structurally normal aortic valve without significant sclerosis or stenosis. There is no aortic regurgitation. Tricuspid Valve [id number] tricuspid valve regurgitation. Estimated pulmonary artery peak systolic pressure of 45 mmHg Pulmonic Valve Structurally normal pulmonic valve without significant stenosis. There is no pulmonic regurgitation. Pericardium The inferior vena cava appears to be dilated with no respiratory phasic variation Aorta Normal ascending aorta dimension. CONCLUSIONS Severe diffuse hypokinesis of the left ventricle with an ejection fraction of around 10 to 15%. Mildly dilated LV cavity. Moderate biatrial enlargement. Moderately severe mitral and tricuspid regurgitation Estimated pulmonary artery peak systolic pressure 45 mmHg. No intracavitary masses. No significant pericardial effusion Compared to the previous study from 03/08/2021, there may not be a significant change Dr Macario Blanchard MD FACC (Electronically Signed) Final Date: 30 March 2021 13:30 S
[2021-03-29 18:38] LABS: Troponin(5th) Baseline 20 ng/L (0-15)
[2021-03-29 18:44] LABS: Lactate (Lactic Acid level) 4.3 mmol/L (0.5-2.2)
[2021-03-29 18:48] LABS: Alanine Aminotransferase 32 U/L (0-41); Alkaline Phosphatase 82 IU/L (40-130); Blood Urea Nitrogen 19 mg/dL (6-20); Calcium 8.9 mg/dL (8.5-10.5); Carbon Dioxide 17 mmol/L (22-29); Chloride 94 mmol/L (98-107); Globulin 2.7 g/dL (1.3-4.6); Glomerular Filtration Rate 70.4 mL/min (90-130); Glucose 86 mg/dL (65-115); NT Pro B Type Natriuretic Pept 12038 pg/mL (0-125); Osmolality Calculated 278 mOsm/kg (285-295); Sodium 133 mmol/L (136-145); Total Bilirubin 2.7 mg/dL (0.15-1.2); Total Protein 6.7 g/dL (6.6-8.7)
[2021-03-29 18:50] LABS: Anion Gap 26.5 (5-19); Potassium 4.5 mmol/L (3.5-5.1)
[2021-03-29 18:51] LABS: Aspartate Amino Transferase 30 U/L (0-40)
--- NOTE | 2021-03-29 19:18 | ECG_ITS ---
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2000 Requested By: Nadir Robles Order Number: [id number] Leonard MD: JUAN M SHI Measurements Intervals [place] Rate: 105 P: 73 FL: 166 QRS: 60 QRSD: 93 T: 0 QT: 362 QTc: 479 Interpretive Statements SINUS TACHYCARDIA INDETERMINATE AXIS LOW QRS VOLTAGE IN PRECORDIAL LEADS [QRS DEFLECTION < 1.0 mV IN CHEST LEADS] POSSIBLE RIGHT VENTRICULAR CONDUCTION DELAY [RSR (QR) IN V1/V2] POSSIBLE ANTERIOR MYOCARDIAL INFARCTION , PROBABLY OLD [30 ms Q WAVE IN V3/V4, OR R < 0.2 mV IN V4] ABNORMAL RHYTHM ECG Compared to ECG 03/29/2021 17:40:46 Myocardial infarct finding now present Atrial abnormality no longer present Electronically Signed On 03-29-2021 20:55:13 GAMBLING BROKER by JUAN M SHI [id number]
[2021-03-29 19:51] LABS: Ammonia 15 umol/L (16-60)
[2021-03-29] MEDS: sodium chloride 0.9% 500 ML 999 ML IV (20:43)
[2021-03-29 22:24] LABS: SARS Covid-2 Antigen Negative (Negative)
--- NOTE | 2021-03-29 22:29 | P.HP_ITS ---
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 For further work-up.He was discharged from the hospital on life vest about a week back and has a recent appointment with a doctor of naprapathy in [place] on Monday. He came to the ER today with persistent nausea nonbloody vomiting going on for the last couple of days, he has not been able to keep any food or water down today all day due to nausea vomiting. He does also complain of shortness of breath which is likely at his baseline. Upon arrival in the ER he was worked up for above-mentioned complaints. Pertinent imaging studies: X-ray chest: No pulmonary vascular congestion, no infiltrates, no pleural effusion EKG: Sinus tachycardia. Pertinent labs: WBC 11.8, H&H 17.1 / 52 , plt : 296 , serum sodium 133, serum potassium 4.5, BUN/scr : 19/1.3 , lactic acid :4.3 Troponin trend without significant delta: proBNP:[id number] Upon arrival in the ER he was initially placed on dobutamine drip, but later he was given 500 cc normal saline With improvement in his blood pressure and heart rate. Review of Systems Const: Denies: fever(s), chills, body aches, change in appetite or diaphoresis Card: Denies: palpitations Resp: Denies: productive cough, wheezing or pain on inspiration GI: Denies: abdominal pain, diarrhea or constipation : Denies: flank pain or difficulty urinating Musc: Denies: back pain, extremity pain or extremity swelling Neuro: Denies: headache(s), difficulty walking or confusion Medications/Allergies Home Medications Medication Instructions Recorded Confirmed Last Taken Type furosemide 40 mg PO DAILY 03/29/21 03/29/21 Unknown History metoprolol succinate 50 mg PO DAILY 03/29/21 03/29/21 Unknown History Allergies Allergy/AdvReac Type Severity Reaction Status Date / Time No Known Allergies Allergy Verified 11/15/20 11:29 PFSH Acute PFSH: Family History (Updated 03/08/21 @ 15:57 by Kenneth L Horstman, DO) Other CAD (coronary artery disease) Congestive heart failure Social History (Updated 03/08/21 @ 15:57 by Kenneth Samuels DO) Alcohol intake: former Vitals/I&O/Wt Last Vital Signs Temp 97.2 F L 03/29/21 17:00 Pulse 99 03/29/21 22:00 Resp 22 H 03/29/21 22:00 BP 107/66 03/29/21 22:00 Pulse Ox 100 03/29/21 22:00 Weight last 48 hrs Weight 77.111 kg Physical Exam Const: COMMON NORMALS: patient oriented x3 HENMT: COMMON NORMALS: normocephalic and atraumatic HEAD & SCALP: normocephalic and atraumatic Resp: COMMON NORMALS: normal respiratory effort, No retractions, No use of accessory muscles and clear to auscultation bilaterally EFFORT & INSPECTION: Yes symmetric chest movement AUSCULTATION: clear to auscultation bilaterally Cardio: COMMON NORMALS: regular rate, regular rhythm, S1 normal heart sound present, S2 normal heart sound present, No gallops present (Cardio), No murmurs present (Cardio), No rub (Cardio) and Peripheral pulses 2+ throughout RATE: regular rate RHYTHM: regular rhythm HEART SOUNDS: S1 normal heart sound present and S2 normal heart sound present PERIPHERAL PULSES: Peripheral pulses 2+ throughout GI: COMMON NORMALS: Normal to inspection, nondistended, normoactive bowel sounds present, Soft to palpation, non-tender, No hepatosplenomegaly present and no masses AUSCULTATION: Yes normoactive bowel sounds PALPATION: Yes Soft t o palpation and Yes No hepatosplenomegaly present RECTAL EXAM: Yes deferred Extremity: COMMON NORMALS: no clubbing, cyanosis or edema and no pedal edema Neuro: COMMON NORMALS: patient oriented x3 Data : 03/29/21 17:38 03/29/21 17:38 A&P Assessment and plan (1) Heart failure with reduced ejection fraction: Status: Acute (2) Nausea & vomiting: Status: Acute (3) Alcoholic cardiomyopathy: Status: Acute (4) Lactic acidosis: Status: Acute (5) Hyponatremia: Status: Acute (6) CKD (chronic kidney disease) stage 2, GFR 60-89 ml/min: Status: Acute (7) Dehydration: Status: Acute Additional A&P Information 20 year old male with past medical history of alcohol abuse, 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 For further work-up.He was discharged from the hospital about a week back and has a recent appointment with a doctor of naprapathy in [place] on Monday. He came to the ER today with persistent nausea nonbloody vomiting going on for the last couple of days, he has not been able to keep any food or water down today all day due to nausea vomiting. He does also complain of shortness of breath which is likely at his baseline # HFrEF : Currently compensated. Dobutamine drip has been stopped. Will closely monitor intake output. Monitor daily weight K>4, MG >2 We will hold Lasix 40 mg po daily dose for today. We will resume at appropriate time after reassessing the patient for volume status. Continue LifeVest ER has consulted cardiology #Elevated lactic acid: Due to dehydration and hypotension. Less concern for infection Follow blood culture, urine culture, repeat lactic acid, procalcitonin #Nausea & vomiting: prn Zofran #Hypovolemic hyponatremia: Patient has received 500 cc NS. Will discontinue IV hydration. Monitor BMP Encourage p.o. intake, with a strict intake output charting. #SATHYA versus SATHYA on CKD stage II: Monitor BMP Avoid nephrotoxic's #DVT prophylaxis: On Lovenox Attestations Medical Necessity Statement*: To be in hospital for management of dehydration, nausea vomiting, anticipated LOS stay greater than 2 midnights. 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
[2021-03-29 22:57] LABS: Blood Urine 2+ (Negative); Glucose Urine UA Norm (Normal); Ketones Urine Negative (Negative); Nitrate Urine Negative (Negative); Protein Urine Neg (Negative); Specific Gravity, Urine 1.025 (1.005-1.030); Urine Appearance Clear (CLEAR); Urine Color Yellow (Yellow); pH Urine 5 (5-7)
[2021-03-29 22:58] LABS: Add Urine Culture? No; Add Urine Microscopic? YES; Bacteria Urine TRACE /hpf; Bilirubin Urine 1+ (Negative); Hyaline Casts Urine 0-4 /lpf; Leukocyte Esterase Urine Trace (Negative); Mucus Urine 1+ /hpf; RBC Urine 0-4 /hpf (0-2); Squamous Epithelial Cell Urine 0-4 /hpf (0-5); Urobilinogen Urine 1 mg/dL (Negative)
[2021-03-29 23:08] LABS: Troponin 5 6HR 17.77 ng/L (0-15)
[2021-03-29 23:09] LABS: Troponin 5 6HR Delta -2.23 ng/L (0-12)
--- NOTE | 2021-03-29 23:18 | ECG_ITS ---
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2000 Requested By: Nadir Robles Order Number: [id number] Leonard MD: JUAN M SHI Measurements Intervals [place] Rate: 118 P: 76 AR: 165 QRS: 178 QRSD: 90 T: 60 QT: 332 QTc: 465 Interpretive Statements SINUS TACHYCARDIA LEFT ATRIAL ENLARGEMENT [-0.15mV P-WAVE IN V1/V2] INDETERMINATE AXIS LOW QRS VOLTAGE IN PRECORDIAL LEADS [QRS DEFLECTION < 1.0 mV IN CHEST LEADS] Compared to ECG 03/08/2021 18:52:31 Atrial abnormality now present Indeterminate axis now present Low QRS voltage now present Incomplete right bundle-branch block no longer present T-wave abnormality no longer present Possible ischemia no longer present Electronically Signed On 03-29-2021 20:56:50 COMMISSARY AGENT by JUAN M SHI [id number]
[2021-03-30] VITALS (60 sets, daily range): BP systolic 81–117; BP diastolic 54–100; PULSE 85–119; RESP 17–20; TEMP 36.3–37.1; O2SAT 90–100; BMI 25.1
[2021-03-30 03:54] LABS: Basophils # 0.1 10^3/uL (0.0-0.1); Basophils % 0.8 %; Eosinophils % 0.3 %; Hematocrit 53.7 % (42.0-52.0); Hemoglobin 16.6 g/dL (11.7-16.6); Lymphocytes # 3.3 10^3/uL (1.5-6.5); Lymphocytes % 33.5 %; Mean Corpuscular HGB Conc 30.9 g/dL (30.0-36.0); Mean Corpuscular Volume 93.7 fl (80-94); Mean Platelet Volume 11.1 fL (7.4-10.4); Monocytes # 0.6 10^3/uL (0.2-0.9); Neutrophils # 5.85 10^3/uL (1.8-8.0); Neutrophils % 59.2 %; Nucleated Red Blood Cells % 0 %; Platelet Count 227 10^3/cmm (130-400); Red Blood Count 5.73 10^6/uL (4.1-5.3); Red Cell Distribution Width 18.4 % (12.1-15.1); White Blood Count 9.9 10^3/uL (4.5-13.0)
[2021-03-30 04:14] LABS: Alanine Aminotransferase 26 U/L (0-41); Albumin Level 3.7 g/dL (3.5-5.2); Alkaline Phosphatase 71 IU/L (40-130); Aspartate Amino Transferase 23 U/L (0-40); Blood Urea Nitrogen 18 mg/dL (6-20); Calcium 8.8 mg/dL (8.5-10.5); Carbon Dioxide 21 mmol/L (22-29); Chloride 97 mmol/L (98-107); Creatinine Clr Calc Pharmacy 122.1073; Globulin 2.2 g/dL (1.3-4.6); Glomerular Filtration Rate 95.3 mL/min (90-130); Glucose 98 mg/dL (65-115); Magnesium 2.1 mg/dL (1.7-2.3); Osmolality Calculated 280 mOsm/kg (285-295); Sodium 134 mmol/L (136-145); Total Bilirubin 2.9 mg/dL (0.15-1.2); Total Protein 5.9 g/dL (6.6-8.7)
[2021-03-30 04:15] LABS: Anion Gap 20.2 (5-19); Lactic Sepsis W/Reflex 2.4 mmol/L (0.5-2.2); Potassium 4.2 mmol/L (3.5-5.1)
[2021-03-30 04:21] LABS: Procalcitonin 0.18 ng/mL (0-0.5)
[2021-03-30 05:39] LABS: Reflex Lactate Order REFLEX LACTIC ORDERD
--- NOTE | 2021-03-30 07:51 | PM.CONSULT ---
Providers/Reason For Consult Consulting Physician/Specialty*: NANNETTE Blanchard MD/ Cardiology Reason for Consult*: Cardiomyopathy/CHF/Hypotension Attending Physician: Deandre Mckinney MD History of Present Illness History of Present Illness So Brenner is a 20 year old male who is admitted to hospital through the emergency room where he presented with complaints of nausea, generalized weakness and shortness of breath. Patient was recently diagnosed with possible nonischemic cardiomyopathy. He presented to the hospital emergency room on the of last month with complaints of progressive shortness of breath. He was found to have an LV ejection fraction of around 12% at that time. He had a possibly severe tricuspid regurgitation with moderate mitral regurgitation. Patient was transferred to [facility] in [place] at that time. He was treated with IV diuretics, IV Dobutrex, p.o. metoprolol and losartan. He was placed on a LifeVest. He was discharged home in fairly stable condition. According the patient, he been having significant dyspnea on exertion which has been gradually getting worse since the hospital discharge. Even walking across the room, become extremely difficult because of shortness of breath and fatigue. He also was feeling very nauseous and somewhat diaphoretic. Every time when he tried to drink something, he becomes more nauseous and has a bloated feeling in the stomach. He also had a cold feeling of the extremities. Denies any chest pain. No palpitation. No syncopal episodes. He was placed on home oxygen at night because of the nocturnal oxygen desaturation. He has not had any discharges from the LifeVest so far. He has appointment to see a pre school manager in [place] tomorrow. Patient's mother had a cardiomyopathy, started in her 40s. She had an ICD. Apparently she last year. He has a grandmother is known to have congestive heart heart failure. Her heart failure started in her 60s. Details are not known at this point. Patient used to be heavy alcoholic. Used to drink at least a pint of vodka every day for the last 2 and half years. He quit drinking 2 months ago. He was smoking marijuana occasionally. No other substance abuse. Denies any fever or chills. No significant cough. Review of Systems Narrative: CONSTITUTIONAL: No fever or chills. EYES: No blurring of vision or other visual disturbances lately. ENT: No hoarseness of voice, auditory disturbances or sore throat. CARDIOVASCULAR: As mentioned above. RESPIRATORY: No significant cough. GASTROINTESTINAL: Nausea as mentioned above GENITOURINARY: No dysuria or hematuria. INTEGUMENTARY: No skin rashes or history of skin cancer. NEURO: No transient ischemic attacks or amaurosis. PSYCHIATRIC: He seems to be extremely anxious. He also has difficulty in getting to sleep. HEMATOLOGIC: No bleeding disorders or significant anemia. ENDOCRINE: No history of polyuria or polydipsia. MUSCULOSKELETAL: No recent joint pain or swelling. ALLERGY/IMMUNOLOGY: As mentioned above. Medications/Allergies Home Medications Medication Instructions Recorded Confirmed Last Taken Type furosemide 40 mg PO DAILY 03/29/21 03/29/21 Unknown History metoprolol succinate 50 mg PO DAILY 03/29/21 03/29/21 Unknown History Allergies Allergy/AdvReac Type Severity Reaction Status Date / Time No Known Allergies Allergy Verified 11/15/20 11:29 PFSH Acute PFSH: Family History Mother Congestive heart failure, Onset Age: 40 She had an ICD implantation and of? Congestive heart failure. Grandmother Congestive heart failure, Onset Age: 60 She is diagnosed with congestive heart failure. Details are not available Other CAD (coronary artery disease) Social History Alcohol intake: former Vitals/I&O/Wt Last Vital Signs Temp 98.7 F 03/30/21 03:33 Pulse 104 H 03/30/21 06:00 Resp 18 03/30/21 03:33 BP 96/79 03/30/21 06:00 Pulse Ox 98 03/30/21 06:00 03/29/21 03/30/21 03/30/21 22:59 06:59 14:59 Intake Total 500 / 500 69.806 / 569.806 Output Total 0 / 0 Balance 500 / 500 69.806 / 569.806 Weight last 48 hrs Weight 170 lb Weight 170 lb Physical Exam Narrative: EXAM NARRATIVE: GENERAL: The patient is alert and oriented times three. Not in any acute distress. HEENT: No significant pallor, icterus or lymphadenopathy.Oral cavity: There are no mucous membrane lesions. Fundus is not visualized NECK: Trachea appears to be central. No masses noted. JVD of 4 cm with angle of [place] RESPIRATORY: Chest is symmetrical. No intercostals muscle retraction or any accessory muscle activation. There is no chest wall tenderness. Breath sounds are heard bilaterally. No rales or rhonchi heard. No evidence of any consolidation. BREASTS: Deferred. HEART: The heart sounds are normal. No S3 or S4. No significant murmurs. No pericardial rub ABDOMEN: No vessel pulsations or distention. No tenderness. No organomegaly appreciated. Bowel sounds are normally heard. : Deferred. RECTAL: Deferred. LYMPHATIC: No lymphadenopathy noted in the neck or groin. EXTREMITIES: No significant edema or cyanosis. Peripheral pulses are palpable but weak bilaterally MUSCULOSKELETAL: No acute joint deformities or swelling SKIN: There are no significant rashes or ecchymosis NEUROPSYCHIATRIC: The patient is alert and oriented x3. Appears to be in a good mood. No tremors or rigidity noted. Data Labs: Other Labs: Laboratory Last Values WBC 9.9 10^3/uL (4.5- 13.0) 03/30/21 03:46 RBC 5.73 10^6/uL (4.1 -5.3) H 03/30/21 03:46 Hgb 16.6 g/dL (11.7-1 6.6) 03/30/21 03:46 Hct 53.7 % (42.0-52.0 ) H 03/30/21 03:46 MCV 93.7 fl (80-94) 03/30/21 03:46 MCH 29.0 pg (28.0-34. 0) 03/30/21 03:46 MCHC 30.9 g/dL (30.0-3 6.0) D 03/30/21 03:46 RDW 18.4 % (12.1-15.1 ) H 03/30/21 03:46 Plt Count 227 10^3/cmm (130 -400) 03/30/21 03:46 MPV 11.1 fL (7.4-10.4 ) H 03/30/21 03:46 Neut % (Auto) 59.2 % 03/30/21 03:46 Lymph % (Auto) 33.5 % 03/30/21 03:46 [place] % (Auto) 6.0 % 03/30/21 03:46 Eos % (Auto) 0.3 % 03/30/21 03:46 Baso % (Auto) 0.8 % 03/30/21 03:46 Neut # (Auto) 5.85 10^3/uL (1.8 -8.0) 03/30/21 03:46 Lymph # (Auto) 3.3 10^3/uL (1.5- 6.5) 03/30/21 03:46 [place] # (Auto) 0.6 10^3/uL (0.2- 0.9) 03/30/21 03:46 Eos # (Auto) 0.0 10^3/uL (0.0- 0.8) 03/30/21 03:46 Baso # (Auto) 0.1 10^3/uL (0.0- 0.1) 03/30/21 03:46 Nucleated RBC % (a uto) 0 % 03/30/21 03:46 Nucleated RBCs # 0.0 /100WBC 03/30/21 03:46 PT 21.90 SECONDS (12 .1-14.9) H 03/29/21 17:38 INR 1.87 (0.8-1.2) H 03/29/21 17:38 APTT 29.8 SECONDS (23. 9-36.7) 03/29/21 17:38 Sodium 134 mmol/L (136-1 45) L 03/30/21 03:46 Potassium 4.2 mmol/L (3.5-5 .1) 03/30/21 03:46 Chloride 97 mmol/L (98-107 ) L 03/30/21 03:46 Carbon Dioxide 21 mmol/L (22-29) L 03/30/21 03:46 Anion Gap 20.2 (5-19) H 03/30/21 03:46 BUN 18 mg/dL (6-20) 03/30/21 03:46 Creatinine 1.0 mg/dL (0.7-1. 2) 03/30/21 03:46 GFR Calculation 95.3 mL/min (90-1 30) 03/30/21 03:46 Glucose 98 mg/dL (65-115) 03/30/21 03:46 Calculated Osmolal ity 280 mOsm/kg (285- 295) L 03/30/21 03:46 Lactic Acid 2.4 mmol/L (0.5-2 .2) H 03/30/21 03:46 Lactate 4.3 mmol/L (0.5-2 .2) H* 03/29/21 17:38 Calcium 8.8 mg/dL (8.5-10 .5) 03/30/21 03:46 Magnesium 2.1 mg/dL (1.7-2. 3) 03/30/21 03:46 Total Bilirubin 2.9 mg/dL (0.15-1 .2) H 03/30/21 03:46 AST 23 U/L (0-40) 03/30/21 03:46 ALT 26 U/L (0-41) 03/30/21 03:46 Alkaline Phosphata se 71 IU/L (40-130) 03/30/21 03:46 Ammonia 15 umol/L (16-60) L 03/29/21 19:20 Troponin T Baselin e 20 ng/L (0-15) H 03/29/21 17:38 Troponin T 120 Min huber 18.70 ng/L (0-15) H 03/29/21 19:20 Delta Troponin T -1.30 ABS# (0-10) L 03/29/21 19:20 Troponin T Hi Sens 6Hr 17.77 ng/L (0-15) H 03/29/21 22:39 Troponin T Hi Sens 6Hr Delta -2.23 ng/L (0-12) L 03/29/21 22:39 NT-Pro-B Natriuret Pep 42411 pg/mL (0-12 5) H 03/29/21 17:38 Total Protein 5.9 g/dL (6.6-8.7 ) L 03/30/21 03:46 Albumin 3.7 g/dL (3.5-5.2 ) 03/30/21 03:46 Globulin 2.2 g/dL (1.3-4.6 ) 03/30/21 03:46 Procalcitonin 0.18 ng/mL (0-0.5 ) 03/30/21 03:46 Procalcitonin Cancelled 03/30/21 03:46 Urine Color Yellow (Yellow) 03/29/21 22:45 Urine Appearance Clear (CLEAR) 03/29/21 22:45 Urine pH 5 (5-7) 03/29/21 22:45 Ur Specific Gravit y 1.025 (1.005-1.0 30) 03/29/21 22:45 Urine Protein Neg (Negative) 03/29/21 22:45 Urine Glucose (UA) Norm (Normal) 03/29/21 22:45 Urine Ketones Negative (Negati ve) 03/29/21 22:45 Urine Blood 2+ (Negative) H 03/29/21 22:45 Urine Nitrate Negative (Negati ve) 03/29/21 22:45 Urine Bilirubin 1+ (Negative) H 03/29/21 22:45 Urine Urobilinogen 1 mg/dL (Negative ) H 03/29/21 22:45 Ur Leukocyte Shirin ase Trace (Negative) H 03/29/21 22:45 Urine RBC 0-4 /hpf (0-2) H 03/29/21 22:45 Urine WBC 10-15 /hpf (0-5) H 03/29/21 22:45 Ur Squamous Epith Cells 0-4 /hpf (0-5) H 03/29/21 22:45 Amorphous Sediment Not Reportable 03/29/21 22:45 Urine Bacteria Trace /hpf (NONE) 03/29/21 22:45 Hyaline Casts 0-4 /lpf H 03/29/21 22:45 Urine Mucus 1+ /hpf 03/29/21 22:45 SARS-CoV-2 Ag (Rap id) Negative (Negati ve) 03/29/21 21:55 Micro: Micro: Microbiology 03/30/21 03:46 Blood Culture - Pr eliminary Blood SPECIMEN [facility] Imaging^: Echo: My impression: 03/08/2021 Severe diffuse hypokinesis left ventricle. LV ejection fraction around 12%. Slightly diminished right ventricle ejection fraction Four-chamber dilatation Moderate mitral regurgitation Possible severe tricuspid regurgitation Estimated pulmonary artery peak systolic pressure of 26 mmHg No previous studies available for comparison A&P Assessment and plan (1) CHF (NYHA class IV, ACC/AHA stage D): Clinically there is no evidence of decompensation. I May start him on spironolactone 25 mg p.o. daily and cut back on the dose of the Lasix to 20 mg daily Status: Acute (2) Nonischemic dilated cardiomyopathy: Patient is on a LifeVest. He may require left ventricular assist device or other treatment measures, if medication treatment fails. Based on the clinical progress, further recommendations will be made Status: Acute (3) Nausea & vomiting: Most likely the patient's symptoms are related to the low output state. The echocardiogram was reviewed. The LV ejection fraction is still around 10 to 15%. For further management of his condition, a 24-hour infusion of IV Dobutrex might be of some help. I may consider starting him on Entresto and see the clinical response. Status: Acute Qualifiers: Vomiting type: unspecified Qualified Code(s): R11.2 - Nausea with vomiting, unspecified (4) Alcohol abuse: Patient quit drinking 2 months ago. He is not planning to go back on this. 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
[2021-03-30] MEDS: metoprolol succinate ER (24 HR) 50 mg Tablet PO (09:05)
[2021-03-30] MEDS: FUROsemide 40 mg Tablet PO (09:05)
--- NOTE | 2021-03-30 10:27 | US_ITS ---
WS: [id number] Complete ABDOMINAL ULTRASOUND HISTORY: elevated bili, epigastric and ruq pain COMPARISON: None available. Liver: 18.8 cm in length. Liver is mildly enlarged and edematous. No mass identified. No bile duct di latation. There is a small amount of perihepatic fluid. Portal Vein: There is abnormal flow in the portal vein. Pulsatile waveform with flow reversal. Bidire ctional flow. Gallbladder: Gallbladder is slightly contracted with diffuse gallbladder wall thickening which is pro bably on the basis of hepatocellular disease and/or ascites. No stones identified. Gallbladder wall thickness: 0.3 cm. Pancreas: Not visualized. Completely obscured by bowel gas. CBD: 0.5 cm. Right kidney: 9.8 cm x 3.8 cm x 4.7 cm. No mass, cortical thickening or hydronephrosis. Left kidney: 10.2 cm x 4.5 cm x 5.0 cm. No mass, cortical thickening or hydronephrosis. Spleen: Normal size and echogenicity. Small amount of fluid adjacent to the spleen. Dilated IVC measuring up to 3 cm. There is a small amount of ascites. US/US abdomen complete* [id number] IMPRESSION: 1. Small amount of ascites. 2. Abnormal portal vein flow. Bidirectional flow is often seen with tricuspid regurgitation, right-sided CHF and cirrhosis. 3. Diffuse gallbladder wall thickening is probably on the basis of hepatocellu lar disease and ascites. No cholelithiasis. No bile duct dilatation.
[2021-03-30] MEDS: ondansetron 2 mg/ML SDV 2 mL 4 MG IVP (10:42)
[2021-03-30 10:50] LABS: Erythrocyte Sedimentation Rate < 1 mm/hr (0-10)
[2021-03-30 11:41] LABS: Lactic Acid level (Lactate) 3.9 mmol/L (0.5-2.2)
[2021-03-30 11:52] LABS: Alanine Aminotransferase 29 U/L (0-41); Albumin Level 3.8 g/dL (3.5-5.2); Alkaline Phosphatase 76 IU/L (40-130); Aspartate Amino Transferase 26 U/L (0-40); Gamma Glutamyl Transferase 95 U/L (8-61); Globulin 2.9 g/dL (1.3-4.6); Lipase 22 U/L (13-60); Thyroid Stimulating Hormone 5.13 uIU/mL (0.27-4.20); Total Bilirubin 3.1 mg/dL (0.15-1.2); Total Protein 6.7 g/dL (6.6-8.7)
[2021-03-30 11:54] LABS: Alcohol Level < 10 mg/dL (0-10)
[2021-03-30] MEDS: DOBUTamine drip 500 MG/250 ML PREMIX 11.57 MG IV (14:36)
[2021-03-30 15:17] LABS: Amphetamines Screen Urine Negative (Negative); Barbiturates Screen Urine Negative (Negative); Benzodiazepines Screen Urine Negative (Negative); Cocaine Screen Urine Negative (Negative); Opiate Screen Urine Negative (Negative); PCP Screen Urine Negative (Negative); THC Screen Urine Positive (Negative)
--- NOTE | 2021-03-30 16:16 | PM.PN ---
Subjective Subjective: Interval history: Patient was seen this morning, abdominal pain complaints, nausea has resolved, does feel a bit short of breath with exertion, currently on room air, he tells me that his last drink of alcohol was a few months ago, denies any drug use, does have a family history of CAD, does tell me that he is scheduled to have a sleep study soon, for sleep apnea, Vitals/I&O/Wt Last Vital Signs Temp 97.8 F 03/30/21 14:03 Pulse 105 H 03/30/21 13:08 Resp 18 03/30/21 03:33 BP 105/73 03/30/21 12:45 Pulse Ox 96 03/30/21 12:00 03/30/21 03/30/21 03/30/21 06:59 14:59 22:59 Intake Total 69.806 / 569.806 200 / 200 Output Total 0 / 0 200 / 200 Balance 69.806 / 569.806 0 / 0 Weight last 48 hrs Weight 77.111 kg Weight 77.111 kg Physical Exam Const: COMMON NORMALS: no acute distress and patient oriented x3 Resp: COMMON NORMALS: normal respiratory effort, No retractions, No use of accessory muscles and clear to auscultation bilaterally AUSCULTATION: clear to auscultation bilaterally Cardio: COMMON NORMALS: regular rate, regular rhythm, S1 normal heart sound present and S2 normal heart sound present RATE: regular rate RHYTHM: regular rhythm HEART SOUNDS: S1 normal heart sound present and S2 normal heart sound present GI: COMMON NORMALS: Normal to inspection, nondistended, normoactive bowel sounds present, Soft to palpation and non-tender PALPATION: Yes Soft to palpation Extremity: COMMON NORMALS: no pedal edema Neuro: COMMON NORMALS: patient oriented x3 Psych: COMMON NORMALS: mental status grossly normal Data : 03/30/21 03:46 03/30/21 03:46 Micro: Microbiology 03/30/21 10:37 Blood Culture - Preliminary Blood SPECIMEN COLLECTED 03/30/21 03:46 Blood Culture - Preliminary Blood SPECIMEN COLLECTED A&P Assessment and plan (1) Heart failure with reduced ejection fraction: Status: Acute (2) Nausea & vomiting: Status: Acute (3) Alcoholic cardiomyopathy: Status: Acute (4) Lactic acidosis: Status: Acute (5) Hyponatremia: Status: Acute (6) CKD (chronic kidney disease) stage 2, GFR 60-89 ml/min: Status: Acute (7) Dehydration: Status: Acute Additional A&P Information 20 year old male with past medical history of alcohol abuse, newly diagnosed likely alcoholic cardiomyopathy, with EF of 12 %, he was sent from the [facility] ER couple of weeks back to a hospital in [place]. For further work-up.He was discharged from the hospital about a week back and has a recent appointment with a bilingual kindergarten teacher in [place] on Monday. He came to the ER today with persistent nausea nonbloody vomiting going on for the last couple of days, he has not been able to keep any food or water down today all day due to nausea vomiting. He does also complain of shortness of breath which is likely at his baseline # HFrEF : Dobutamine drip continue. Will closely monitor intake output. Monitor daily weight K>4, MG >2 Dose Lasix today Continue LifeVest ER has consulted cardiology #Elevated lactic acid: Due to dehydration and hypotension. Less concern for infection Follow blood culture, urine culture, repeat lactic acid, procalcitonin Hyperbilirubinemia, portal congestion from severe CHF, will do liver function studies, ultrasound abdomen #Nausea & vomiting: prn Zofran #Hypovolemic hyponatremia: Encourage p.o. intake, with a strict intake output charting. #SATHYA versus SATHYA on CKD stage II: Monitor BMP Avoid nephrotoxic's #DVT prophylaxis: On Lovenox Attestations Medical Necessity Statement*: Patient requires hospitalization for heart failure with reduced ejection fraction, start dobutamine drip, critical care time spent over 35 minutes Coding Level of Care Code Acute Manager Competitive Intelligence for Joeyg Fwd Diagnoses Heart failure with reduced ejection fraction I50.20 Nausea & vomiting R11.2 Alcoholic cardiomyopathy I42.6 Lactic acidosis E87.2 Hyponatremia E87.1 CKD (chronic kidney disease) stage 2, GFR 60-89 ml/min N18.2 Dehydration E86.0
[2021-03-30] MEDS: sacubitril/valsartan 24-26 mg Tablet 1 EACH PO (19:45)
[2021-03-31] VITALS (48 sets, daily range): BP systolic 94–114; BP diastolic 54–75; PULSE 80–121; RESP 20–25; TEMP 36.1; O2SAT 86–100; BMI 27.5
[2021-03-31 05:05] LABS: Basophils # 0.1 10^3/uL (0.0-0.1); Basophils % 0.8 %; Eosinophils # 0.1 10^3/uL (0.0-0.8); Hematocrit 44.7 % (42.0-52.0); Hemoglobin 14.7 g/dL (11.7-16.6); Lymphocytes # 3.2 10^3/uL (1.5-6.5); Lymphocytes % 33.5 %; Mean Corpuscular HGB Conc 32.9 g/dL (30.0-36.0); Mean Corpuscular Hemoglobin 28.8 pg (28.0-34.0); Mean Corpuscular Volume 87.6 fl (80-94); Mean Platelet Volume 10.9 fL (7.4-10.4); Monocytes # 0.8 10^3/uL (0.2-0.9); Monocytes % 8.1 %; Neutrophils # 5.31 10^3/uL (1.8-8.0); Neutrophils % 56.4 %; Nucleated Red Blood Cells % 0 %; Platelet Count 231 10^3/cmm (130-400); Red Cell Distribution Width 17.2 % (12.1-15.1); White Blood Count 9.4 10^3/uL (4.5-13.0)
[2021-03-31 05:36] LABS: Alanine Aminotransferase 21 U/L (0-41); Alkaline Phosphatase 60 IU/L (40-130); Anion Gap 16.5 (5-19); Aspartate Amino Transferase 18 U/L (0-40); Blood Urea Nitrogen 20 mg/dL (6-20); Carbon Dioxide 23 mmol/L (22-29); Chloride 98 mmol/L (98-107); Globulin 1.9 g/dL (1.3-4.6); Glomerular Filtration Rate 85.3 mL/min (90-130); Glucose 102 mg/dL (65-115); Magnesium 1.8 mg/dL (1.7-2.3); Osmolality Calculated 281 mOsm/kg (285-295); Potassium 3.5 mmol/L (3.5-5.1); Sodium 134 mmol/L (136-145); Total Bilirubin 2.4 mg/dL (0.15-1.2); Total Protein 4.9 g/dL (6.6-8.7)
[2021-03-31] MEDS: FUROsemide 40 mg Tablet PO (08:49)
[2021-03-31] MEDS: metoprolol succinate ER (24 HR) 25 mg Tablet PO (08:49)
[2021-03-31] MEDS: sacubitril/valsartan 24-26 mg Tablet 1 EACH PO ×2 (08:49→17:06)
[2021-03-31] MEDS: DOBUTamine drip 500 MG/250 ML PREMIX 11.57 MG IV (08:49)
[2021-03-31] MEDS: spironolactone 25 mg Tablet PO (08:49)
--- NOTE | 2021-03-31 10:21 | PC.CHAP ---
Pastoral Care Encounter/Spiritual Assessment Type of Contact [] Declined bank vault clerk visit [] Patient/Family/Request visit [] Outpatient visit [] Follow-up visit [] Physician referral [] Code/Alert [] Routine visit [] Staff referral [] Actively dying [] Patient sleeping [] Family support [] [] Out of room [] Palliative care [] [] Receiving care in room [] Pre-surgical visit [] Trauma [] Long length of stay [x] ICU visit [] Other: Relational/Emotional Strength [] Patient feels connected with others/family/visitors/staff [] Distress [] Loneliness/isolation [] Abandonment Spirituality of Patient [] Person of Ines [] Attends Mormonism of their Ines [] Believes in Prayer [] Reads Bible or Restorationism materials [] There are Spiritual issues to be addressed Quality Control Interventions [x] Prayer [] Active listening [] Non-anxious presence [] Spiritual/emotional support [] Crisis/trauma care [] Spiritual counseling [] Bereavement support [] Provided bereavement packet [] Provided Bible/devotional materials [] Provided toy/stuffed animal, coloring book to patient or family member [] Provided Communion [] Anointing/[place] [] Salvation [] Completed spiritual assessment [] Other: Impact on Illness or Injury [] Angry [] Fearful [] Anxious [] Often cries [] Exhaustion [] Unable to work [] Unable to attend orthodoxy [] Unable to walk/stand [] Unable to read [] Unable to drive [] Unable to eat/drink [] Unable to sleep [] Unable to be with family [] Patient intubated [] Other: Summary Time spent with patient
--- NOTE | 2021-03-31 10:51 | ECG_ITS ---
[facility] Test Date: 2021-03-31 Pat Name: So Brenner Department: Room: [facility] Gender: Male Detention Sergeant: : [id number] Requested By: Deandre Mckinney Order Number: [id number] Leonard MD: Macario Blanchard M.D. Measurements Intervals [place] Rate: 91 P: 61 DE: 176 QRS: 98 QRSD: 98 T: -89 QT: 393 QTc: 485 Interpretive Statements SINUS RHYTHM BORDERLINE RIGHT AXIS DEVIATION [QRS AXIS > 90] POSSIBLE ANTERIOR MYOCARDIAL INFARCTION , OF INDETERMINATE AGE [30 ms Q WAVE IN V3/V4, OR R < 0.2 mV IN V4] Compared to ECG 03/29/2021 19:01:40 Sinus tachycardia no longer present Indeterminate axis no longer present Myocardial infarct finding still present Electronically Signed On 03-31-2021 17:47:03 SOCCER PLAYER by Macario Blanchard M.D. [id number]
[2021-03-31] MEDS: magnesium sulfate premix 2 GM/50 ML PIGGYBACK IV (11:07)
--- NOTE | 2021-03-31 14:30 | PM.PN ---
Subjective Subjective: Interval history: Patient was seen this morning, currently on dobutamine drip, continues to have complaints of chest palpitations with exertion, some shortness of breath with exertion, no nausea, no vomiting, no lightheadedness, no dizziness Vitals/I&O/Wt Last Vital Signs Temp 96.9 F L 03/31/21 06:00 Pulse 102 H 03/31/21 12:45 Resp 20 H 03/31/21 06:00 BP 105/64 03/31/21 12:00 Pulse Ox 97 03/31/21 12:45 03/30/21 03/31/21 03/31/21 22:59 06:59 14:59 Intake Total 420 / 620 0 / 620 773.542 / 773.542 Output Total 600 / 800 700 / 1500 Balance -180 / -180 -700 / -880 773.542 / 773.542 Weight last 48 hrs Weight 84.623 kg Weight 77.111 kg Weight 77.111 kg Physical Exam Const: COMMON NORMALS: no acute distress and patient oriented x3 Resp: COMMON NORMALS: normal respiratory effort, No retractions, No use of accessory muscles and clear to auscultation bilaterally AUSCULTATION: clear to auscultation bilaterally Cardio: COMMON NORMALS: regular rate, regular rhythm, S1 normal heart sound present and S2 normal heart sound present RATE: regular rate RHYTHM: regular rhythm HEART SOUNDS: S1 normal heart sound present and S2 normal heart sound present GI: COMMON NORMALS: Normal to inspection, nondistended, normoactive bowel sounds present, Soft to palpation and non-tender PALPATION: Yes Soft to palpation Extremity: COMMON NORMALS: no pedal edema Neuro: COMMON NORMALS: patient oriented x3 Psych: COMMON NORMALS: mental status grossly normal Data : 03/31/21 04:35 03/31/21 04:35 Micro: Microbiology 03/30/21 10:37 Blood Culture - Preliminary Blood NEGATIVE TO DATE 03/30/21 14:45 Urine Culture - Preliminary Urine,Clean Catch 03/30/21 03:46 Blood Culture - Preliminary Blood NEGATIVE TO DATE A&P Assessment and plan (1) Heart failure with reduced ejection fraction: Status: Acute (2) Nausea & vomiting: Status: Acute (3) Alcoholic cardiomyopathy: Status: Acute (4) Lactic acidosis: Status: Acute (5) Hyponatremia: Status: Acute (6) CKD (chronic kidney disease) stage 2, GFR 60-89 ml/min: Status: Acute (7) Dehydration: Status: Acute Additional A&P Information 20 year old male with past medical history of alcohol abuse, newly diagnosed likely alcoholic cardiomyopathy, with EF of 12 %, he was sent from the [facility] ER couple of weeks back to a hospital in [place]. For further work-up.He was discharged from the hospital about a week back and has a recent appointment with a furniture assembler in [place] on Monday. He came to the ER today with persistent nausea nonbloody vomiting going on for the last couple of days, he has not been able to keep any food or water down today all day due to nausea vomiting. He does also complain of shortness of breath which is likely at his baseline # HFrEF : Dobutamine drip to be stopped in an hour Started on Entresto Will closely monitor intake output. Monitor daily weight K>4, MG >2 Dose Lasix today Continue LifeVest Cardiology on consult #Elevated lactic acid: Due to dehydration and hypotension. Less concern for infection Follow blood culture, urine culture, repeat lactic acid, procalcitonin Hyperbilirubinemia, portal congestion from severe CHF Abdominal ultrasound shows 1. Small amount of ascites. 2. Abnormal portal vein flow. Bidirectional flow is often seen with tricuspid regurgitation, right-sided CHF and cirrhosis. 3. Diffuse gallbladder wall thickening is probably on the basis of hepatocellular disease and ascites. No cholelithiasis. No bile duct dilatation. #Nausea & vomiting: prn Zofran #Hypovolemic hyponatremia: Encourage p.o. intake, with a strict intake output charting. #SATHYA versus SATHYA on CKD stage II: Monitor BMP Avoid nephrotoxic's #DVT prophylaxis: On Lovenox Attestations Medical Necessity Statement*: Patient requires hospitalization for heart failure with reduced ejection fraction Coding Level of Care Code Acute Storage Wharfage Clerk for Chg Fwd Diagnoses Heart failure with reduced ejection fraction I50.20 Nausea & vomiting R11.2 Alcoholic cardiomyopathy I42.6 Lactic acidosis E87.2 Hyponatremia E87.1 CKD (chronic kidney disease) stage 2, GFR 60-89 ml/min N18.2 Dehydration E86.0
--- NOTE | 2021-03-31 16:57 | P.PN_ITS ---
Subjective Subjective: Interval history: Patient is feeling little better. He was tapered off the Dobutrex this morning. His heart rate started going up afterwards. The heart rate was in the 90s this morning but currently it is in the 120s. He started getting up and moving around with assistance. He was found to be getting short of breath and tired easily. No cough. No headache or dizziness. Medications: Reviewed: Yes Medication Review Details: Current Medications Acetaminophen (Acetaminophen 325 Mg Tablet) 650 mg PO Q6H PRN PRN Reason: Mild/Mod Pain Or Temp >/= 101 Bisacodyl (Bisacodyl 5 Mg Tablet) 10 mg PO DAILY PRN; Protocol PRN Reason: Constipation (see protocol) Dobutamine HCl/Dextrose (Dobutamine Drip) 500 mg in 250 mls @ 0 mls/hr IV .Q0M [facility]; Protocol Last Titration: 03/31/21 12:18 Dose: 0 mcg/kg/min, 0 mls/hr Documented by: Metoprolol Succinate (Metoprolol Succinate Er (24 Hr) 25 Mg Tablet) 25 mg PO DAILY [facility] Last Admin: 03/31/21 08:49 Dose: 25 mg Documented by: Ondansetron HCl (Ondansetron 2 Mg/Ml Sdv 2 Ml) 4 mg IVP Q8H PRN PRN Reason: vomiting, or N/V if npo Last Admin: 03/30/21 10:42 Dose: 4 mg Documented by: Sacubitril/Valsartan (Sacubitril/Valsartan 24-26 Mg Tablet) 1 each PO BID [facility] Last Admin: 03/31/21 08:49 Dose: 1 each Documented by: Spironolactone (Spironolactone 25 Mg Tablet) 25 mg PO DAILY [facility] Last Admin: 03/31/21 08:49 Dose: 25 mg Documented by: Vitals/I&O/Wt Last Vital Signs Temp 96.9 F L 03/31/21 06:00 Pulse 120 H 03/31/21 16:00 Resp 20 H 03/31/21 06:00 BP 114/75 03/31/21 16:00 Pulse Ox 92 03/31/21 16:00 03/31/21 03/31/21 03/31/21 06:59 14:59 22:59 Intake Total 0 / 620 773.542 / 773.542 Output Total 700 / 1500 Balance -700 / -880 773.542 / 773.542 Weight last 48 hrs Weight 186 lb 9 oz Weight 170 lb Weight 170 lb Physical Exam Narrative: EXAM NARRATIVE: GENERAL: The patient is alert and oriented times three. Not in any acute distress. HEENT: No significant pallor, icterus or lymphadenopathy.Oral cavity: There are no mucous membrane lesions. Fundus is not visualized NECK: Trachea appears to be central. No masses noted. JVD of 2 cm with angle of [place] RESPIRATORY: Chest is symmetrical. No intercostals muscle retraction or any accessory muscle activation. There is no chest wall tenderness. Breath sounds are heard bilaterally. No rales or rhonchi heard. No evidence of any consol idation. BREASTS: Deferred. HEART: The heart sounds are normal. No S3 or S4. Systolic murmur grade 3 or 6 in the left sternal border and in the mitral area. No pericardial rub ABDOMEN: No vessel pulsations or distention. No tenderness. No organomegaly. Some dependent edema in the sacral region. bowel sounds are normally heard. : Deferred. RECTAL: Deferred. LYMPHATIC: No lymphadenopathy noted in the neck or groin. EXTREMITIES: Trace edema in the lower extremities. No cyanosis. MUSCULOSKELETAL: No acute joint deformities or swelling SKIN: There are no significant rashes or ecchymosis NEUROPSYCHIATRIC: The patient is alert and oriented x3. Appears to be in a good mood. No tremors or rigidity noted. Data : 04/01/21 03:14 04/01/21 03:14 Micro: Microbiology 03/30/21 10:37 Blood Culture - Preliminary Blood NEGATIVE TO DATE 03/30/21 14:45 Urine Culture - Preliminary Urine,Clean Catch 03/30/21 03:46 Blood Culture - Preliminary Blood NEGATIVE TO DATE A&P Assessment and plan (1) CHF (NYHA class IV, ACC/AHA stage D): The heart failure seems to be getting compensated. We will try to optimize the GDMT. So far he seems to be tolerating the Entresto well. I may give some IV Lasix for optimal diuresis. 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 He may require left ventricular assist device or other treatment measures, if medication treatment fails. Based on the clinical progress, further recommendations will be made Status: Acute (3) Nausea & vomiting: Most likely the patient's symptoms are related to the low output state. The echocardiogram was reviewed. The LV ejection fraction is still around 10 to 15%. The IV Dobutrex was tapered off today. Because of the potential for arrhy thmia and other complications, it was decided not to continue this for a longer period of time. Status: Acute Qualifiers: Vomiting type: unspecified Qualified Code(s): R11.2 - Nausea with vomiting, unspecified (4) Alcohol abuse: Patient quit drinking 2 months ago. He is not planning to go back on thi s. He seems understand implications Status: Acute Additional A&P Information Ventricular arrhythmia : Patient had a 3 beat run of nonsustained regular tachycardia on the monitor. He had a potassium and magnesium supplementation.. May add Magtab is a 85 mg p.o. twice daily. Continue on your medications as it is. I discussed with the Dr. Brian Matute-at the [facility] heart failure center, regarding the patient's condition and further management, as per the family's request. Because of the patient's family history of cardiomyopathy and heart failure, he may require genetic work-up to evaluate for any familial disposition. If the GDMT does not improve his condition, mechanical options need to be considered. Attestations Medical Necessity Statement*: Patient requires continued hospital stay for close monitoring and further management Coding Level of Care Code Acute Pulper Operator for Chg Fwd Medical Decision Making Moderate Complexity Diagnoses CHF (NYHA class IV, ACC/AHA stage D) I50.84 Nonischemic dilated cardiomyopathy I42.0 Nausea & vomiting R11.2 Vomiting type: unspecified Alcohol abuse F10.10 Time Spent (min) 45
[2021-03-31] MEDS: FUROsemide 10 mg/mL SDV 4mL 40 MG IVP (17:06)
[2021-03-31] MEDS: potassium chloride ER 20 mEq Tablet PO (17:06)
[2021-04-01] VITALS (46 sets, daily range): BP systolic 94–118; BP diastolic 58–80; PULSE 95–140; RESP 13–39; TEMP 37; O2SAT 86–99
--- NOTE | 2021-04-01 00:19 | PC.RESP ---
pt started on overnight pox study pt heart rate on continous pox over 220 on telementry monitor it is reading 110-115. nurse is aware pt has history of severe cardiomyopathy, chf, and cardiomegaly.
[2021-04-01 03:43] LABS: Basophils % 0.2 %; Eosinophils # 0.1 10^3/uL (0.0-0.8); Eosinophils % 0.9 %; Hematocrit 45.3 % (42.0-52.0); Lymphocytes % 23.2 %; Mean Corpuscular HGB Conc 33.1 g/dL (30.0-36.0); Mean Corpuscular Hemoglobin 28.8 pg (28.0-34.0); Mean Corpuscular Volume 87.1 fl (80-94); Mean Platelet Volume 10.7 fL (7.4-10.4); Monocytes # 0.6 10^3/uL (0.2-0.9); Neutrophils # 5.82 10^3/uL (1.8-8.0); Neutrophils % 68.5 %; Nucleated Red Blood Cells % 0 %; Platelet Count 257 10^3/cmm (130-400); Red Cell Distribution Width 17.3 % (12.1-15.1); White Blood Count 8.5 10^3/uL (4.5-13.0)
[2021-04-01 04:05] LABS: Alanine Aminotransferase 19 U/L (0-41); Albumin Level 3.3 g/dL (3.5-5.2); Alkaline Phosphatase 75 IU/L (40-130); Anion Gap 17.8 (5-19); Aspartate Amino Transferase 19 U/L (0-40); Blood Urea Nitrogen 16 mg/dL (6-20); Calcium 7.9 mg/dL (8.5-10.5); Carbon Dioxide 24 mmol/L (22-29); Chloride 100 mmol/L (98-107); Globulin 1.9 g/dL (1.3-4.6); Glomerular Filtration Rate 95.3 mL/min (90-130); Glucose 100 mg/dL (65-115); Osmolality Calculated 287 mOsm/kg (285-295); Potassium 3.8 mmol/L (3.5-5.1); Sodium 138 mmol/L (136-145); Total Bilirubin 2.2 mg/dL (0.15-1.2); Total Protein 5.2 g/dL (6.6-8.7)
[2021-04-01 08:02] LABS: ABG PCO2 27.2 mmHg (35-45); ABG PH Result 7.49 (7.35-7.45); Arterial Blood Gas Hematocrit 49.2 % (42-52); Base Excess ABG -0.9 mmol/L (-2.0-2.0); Blood Gas Allen Test Pos; Blood Gas Operator Identificat CAK; Blood Gas Sample Site Radial, right; Blood Gas Sample Type Arterial; HCO3 ABG 20.8 mmol/L (22-26); Oxygen Device ROOM AIR; PO2 ABG 66.3 mmHg (80.0-100.0)
[2021-04-01] MEDS: sacubitril/valsartan 24-26 mg Tablet 1 EACH PO ×2 (08:45→17:31)
[2021-04-01] MEDS: metoprolol succinate ER (24 HR) 25 mg Tablet PO ×2 (08:45→13:12)
[2021-04-01] MEDS: spironolactone 25 mg Tablet PO (08:45)
--- NOTE | 2021-04-01 09:45 | PM.PN ---
Subjective Subjective: Interval history: Patient responded to IV Lasix appropriately. Unfortunately the urine output was not charted. He seems to have less dependent edema today, in the sacral region. He continues to have dyspnea on exertion and fatigability with minimal activity. Denies any chest pain. No fever or chills. No cough Medications: Reviewed: Yes Medication Review Details: Current Medications Acetaminophen (Acetaminophen 325 Mg Tablet) 650 mg PO Q6H PRN PRN Reason: Mild/Mod Pain Or Temp >/= 101 Bisacodyl (Bisacodyl 5 Mg Tablet) 10 mg PO DAILY PRN; Protocol PRN Reason: Constipation (see protocol) Doxylamine Succinate (Doxylamine 25 Mg Tablet) 25 mg PO Q6H PRN PRN Reason: SLEEP Last Admin: 04/01/21 03:02 Dose: 25 mg Documented by: Dobutamine HCl/Dextrose (Dobutamine Drip) 500 mg in 250 mls @ 0 mls/hr IV .Q0M [facility]; Protocol Last Titration: 03/31/21 12:18 Dose: 0 mcg/kg/min, 0 mls/hr Documented by: Metoprolol Succinate (Metoprolol Succinate Er (24 Hr) 25 Mg Tablet) 25 mg PO DAILY [facility] Last Admin: 04/01/21 08:45 Dose: 25 mg Documented by: Ondansetron HCl (Ondansetron 2 Mg/Ml Sdv 2 Ml) 4 mg IVP Q8H PRN PRN Reason: vomiting, or N/V if npo Last Admin: 03/30/21 10:42 Dose: 4 mg Documented by: Sacubitril/Valsartan (Sacubitril/Valsartan 24-26 Mg Tablet) 1 each PO BID [facility] Last Admin: 04/01/21 08:45 Dose: 1 each Documented by: Spironolactone (Spironolactone 25 Mg Tablet) 25 mg PO DAILY [facility] Last Admin: 04/01/21 08:45 Dose: 25 mg Documented by: Vitals/I&O/Wt Last Vital Signs Temp 96.9 F L 03/31/21 06:00 Pulse 105 H 04/01/21 08:38 Resp 20 H 04/01/21 04:00 BP 105/64 04/01/21 01:00 Pulse Ox 92 04/01/21 08:38 01/04/01/21 04/01/21 22:59 06:59 14:59 Intake Total 240 / 1013.542 360 / 1373.542 Output Total 2650 / 2650 475 / 3125 Balance -2410 / -1636.458 -115 / -1751.458 Weight last 48 hrs Weight 184 lb 5 oz Weight 186 lb 9 oz Physical Exam Narrative: EXAM NARRATIVE: GENERAL: The patient is alert and oriented times three. Not in any acute distress. HEENT: No significant pallor, icterus or lymphadenopathy.Oral cavity: There are no mucous membrane lesions. Fundus is not visualized NECK: Trachea appears to be central. No masses noted. Neck veins are slightly prominent. RESPIRATORY: Chest is symmetrical. No intercostals muscle retraction or any accessory muscle activation. There is no chest wall tenderness. Breath sounds are heard bilaterally. No rales or rhonchi heard. No evidence of any consolidation. BREASTS: Deferred. HEART: The heart sounds are normal. No S3 or S4. Systolic murmur grade 3 or 6 in the left sternal border and in the mitral area. No pericardial rub ABDOMEN: No vessel pulsations or distention. No tenderness. No organomegaly. Some dependent edema in the sacral region. bowel sounds are normally heard. : Deferred. RECTAL: Deferred. LYMPHATIC: No lymphadenopathy noted in the neck or groin. EXTREMITIES: No significant edema . Relatively cold MUSCULOSKELETAL: No acute joint deformities or swelling SKIN: There are no significant rashes or ecchymosis NEUROPSYCHIATRIC: The patient is alert and oriented x3. No focal motor deficits. Data : 04/02/21 03:22 04/02/21 03:22 Other Labs: Laboratory Last Values WBC 9.8 10^3/uL (4.5-13.0) 04/02/21 03:22 RBC 5.43 10^6/uL (4.1-5.3) H 04/02/21 03:22 Hgb 15.6 g/dL (11.7-16.6) 04/02/21 03:22 Hct 48.2 % (42.0-52.0) 04/02/21 03:22 MCV 88.8 fl (80-94) 04/02/21 03:22 MCH 28.7 pg (28.0-34.0) 04/02/21 03:22 MCHC 32.4 g/dL (30.0-36.0) 04/02/21 03:22 RDW 18.1 % (12.1-15.1) H 04/02/21 03:22 Plt Count 249 10^3/cmm (130-400) 04/02/21 03:22 MPV 10.6 fL (7.4-10.4) H 04/02/21 03:22 Neut % (Auto) 64.1 % 04/02/21 03:22 Lymph % (Auto) 28.1 % 04/02/21 03:22 [place] % (Auto) 5.9 % 04/02/21 03:22 Eos % (Auto) 0.8 % 04/02/21 03:22 Baso % (Auto) 0.9 % 04/02/21 03:22 Neut # (Auto) 6.28 10^3/uL (1.8-8.0) 04/02/21 03:22 Lymph # (Auto) 2.8 10^3/uL (1.5-6.5) 04/02/21 03:22 [place] # (Auto) 0.6 10^3/uL (0.2-0.9) 04/02/21 03:22 Eos # (Auto) 0.1 10^3/uL (0.0-0.8) 04/02/21 03:22 Baso # (Auto) 0.1 10^3/uL (0.0-0.1) 04/02/21 03:22 Nucleated RBC % (auto) 0 % 04/02/21 03:22 Nucleated RBCs # 0.0 /100WBC 04/02/21 03:22 ESR < 1 mm/hr (0-10) 03/30/21 10:37 PT 21.90 SECONDS (12.1-14.9) H 03/29/21 17:38 INR 1.87 (0.8-1.2) H 03/29/21 17:38 APTT 29.8 SECONDS (23.9-36.7) 03/29/21 17:38 Specimen Type Arterial 03/30/21 Unknown Sample Site Radial, right 03/30/21 Unknown ABG pH 7.49 (7.35-7.45) H 03/30/21 Unknown ABG pCO2 27.2 mmHg (35-45) L 03/30/21 Unknown ABG pO2 66.3 mmHg (80.0-100.0) L 03/30/21 Unknown ABG HCO3 20.8 mmol/L (22-26) L 03/30/21 Unknown ABG Base Excess -0.9 mmol/L (-2.0-2.0) 03/30/21 Unknown Chris Test Pos 03/30/21 Unknown Hematocrit 49.2 % (42-52) 03/30/21 Unknown O2 Delivery Device Room air 03/30/21 Unknown FiO2 21.0 % 03/30/21 Unknown Pricer ID Cak 03/30/21 Unknown Sodium 134 mmol/L (136-145) L 04/02/21 03:22 Potassium 3.8 mmol/L (3.5-5.1) 04/02/21 03:22 Chloride 98 mmol/L (98-107) 04/02/21 03:22 Carbon Dioxide 22 mmol/L (22-29) 04/02/21 03:22 Anion Gap 17.8 (5-19) 04/02/21 03:22 BUN 15 mg/dL (6-20) 04/02/21 03:22 Creatinine 0.9 mg/dL (0.7-1.2) 04/02/21 03:22 GFR Calculation 107.6 mL/min (90-130) 04/02/21 03:22 Glucose 96 mg/dL (65-115) 04/02/21 03:22 Calculated Osmolality 279 mOsm/kg (285-295) L 04/02/21 03:22 Lactic Acid 2.4 mmol/L (0.5-2.2) H 03/30/21 03:46 Lactic Acid (Sepsis) 3.9 mmol/L (0.5-2.2) H 03/30/21 10:37 Lactate 4.3 mmol/L (0.5-2.2) H* 03/29/21 17:38 Calcium 8.2 mg/dL (8.5-10.5) L 04/02/21 03:22 Phosphorus 3.5 mg/dL (2.5-4.5) 04/02/21 03:22 Magnesium 2.0 mg/dL (1.7-2.3) 04/02/21 03:22 Total Bilirubin 2.1 mg/dL (0.15-1.2) H 04/02/21 03:22 Direct Bilirubin 1.20 mg/dL (0.00-0.30) H 03/30/21 10:37 GGT 95 U/L (8-61) H 03/30/21 10:37 AST 23 U/L (0-40) 04/02/21 03:22 ALT 18 U/L (0-41) 04/02/21 03:22 Alkaline Phosphatase 73 IU/L (40-130) 04/02/21 03:22 Ammonia 15 umol/L (16-60) L 03/29/21 19:20 Troponin T Baseline 20 ng/L (0-15) H 03/29/21 17:38 Troponin T 120 Minute 18.70 ng/L (0-15) H 03/29/21 19:20 Delta Troponin T -1.30 ABS# (0-10) L 03/29/21 19:20 Troponin T Hi Sens 6Hr 17.77 ng/L (0-15) H 03/29/21 22:39 Troponin T Hi Sens 6Hr Delta -2.23 ng/L (0-12) L 03/29/21 22:39 C-Reactive Protein 11.0 mg/L (0.0-4.9) H 03/30/21 10:37 NT-Pro-B Natriuret Pep 19064 pg/mL (0-125) H 03/29/21 17:38 Total Protein 5.6 g/dL (6.6-8.7) L 04/02/21 03:22 Albumin 3.3 g/dL (3.5-5.2) L 04/02/21 03:22 Globulin 2.3 g/dL (1.3-4.6) 04/02/21 03:22 Lipase 22 U/L (13-60) 03/30/21 10:37 Procalcitonin 0.18 ng/mL (0-0.5) 03/30/21 03:46 Procalcitonin Cancelled 03/30/21 03:46 TSH 5.13 uIU/mL (0.27-4.20) H 03/30/21 10:37 Urine Color Yellow (Yellow) 03/29/21 22:45 Urine Appearance Clear (CLEAR) 03/29/21 22:45 Urine pH 5 (5-7) 03/29/21 22:45 Ur Specific [place] 1.025 (1.005-1.030) 03/29/21 22:45 Urine Protein Neg (Negative) 03/29/21 22:45 Urine Glucose (UA) Norm (Normal) 03/29/21 22:45 Urine Ketones Negative (Negative) 03/29/21 22:45 Urine Blood 2+ (Negative) H 03/29/21 22:45 Urine Nitrate Negative (Negative) 03/29/21 22:45 Urine Bilirubin 1+ (Negative) H 03/29/21 22:45 Urine Urobilinogen 1 mg/dL (Negative) H 03/29/21 22:45 Ur Leukocyte Esterase Trace (Negative) H 03/29/21 22:45 Urine RBC 0-4 /hpf (0-2) H 03/29/21 22:45 Urine WBC 10-15 /hpf (0-5) H 03/29/21 22:45 Ur Squamous Epith Cells 0-4 /hpf (0-5) H 03/29/21 22:45 Amorphous Sediment Not Reportable 03/29/21 22:45 Urine Bacteria Trace /hpf (NONE) 03/29/21 22:45 Hyaline Casts 0-4 /lpf H 03/29/21 22:45 Urine Mucus 1+ /hpf 03/29/21 22:45 Urine Opiates Screen Negative ng/mL (Negative) 03/30/21 14:45 Ur Barbiturates Screen Negative ng/mL (Negative) 03/30/21 14:45 Ur Phencyclidine Scrn Negative ng/mL (Negative) 03/30/21 14:45 Ur Amphetamines Screen Negative ng/mL (Negative) 03/30/21 14:45 U Benzodiazepines Scrn Negative ng/mL (Negative) 03/30/21 14:45 Urine Cocaine Screen Negative ng/mL (Negative) 03/30/21 14:45 U Marijuana (THC) Screen Positive ng/mL (Negative) H 03/30/21 14:45 Ethyl Alcohol < 10 mg/dL (0-10) 03/30/21 10:37 SARS-CoV-2 Ag (Rapid) Negative (Negative) 03/29/21 21:55 Micro: Microbiology 03/30/21 14:45 Urine Culture - Final Urine,Clean Catch 03/30/21 10:37 Blood Culture - Preliminary Blood NEGATIVE TO DATE 03/30/21 03:46 Blood Culture - Preliminary Blood NEGATIVE TO DATE A&P Assessment and plan (1) CHF (NYHA class IV, ACC/AHA stage D): The heart failure seems to be getting compensated. We will try to optimize the GDMT. So far he seems to be tolerating the Entresto well. Patient may benefit from invasive hemodynamic monitoring. Also may benefit from a cardiac catheterization to evaluate the coronary arteries. It would be appropriate to perform these procedures in the facility where he can get advanced heart failure therapy. 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 So far he has not had any LifeVest discharges. He had a couple of short runs of nonsustained ventricular tachycardia's on the monitor, longest was of 4 beats Status: Acute (3) Nausea & vomiting: Patient continues to have some nausea with the food intake. It is much better, since hospital admission. Status: Acute Qualifiers: Vomiting type: unspecified Qualified Code(s): R11.2 - Nausea with vomiting, unspecified (4) Alcohol abuse: Patient quit drinking 2 months ago. He is not planning to go back on this. He seems understand implications Status: Acute Additional A&P Information Ventricular arrhythmia : Patient had a 3 beat run of nonsustained regular tachycardia on the monitor. He had a potassium and magnesium supplementation.. May add Magtab is a 85 mg p.o. twice daily. Continue on other current medications as it is. Because of the patient's class IV heart failure symptoms, it would be appropriate to transfer him to a facility where further management options are available. Dr. Brian Matute's office is contacted. Dr. Matute accepted his transfer for further management. I contacted the [facility] transfer center. They will be making arrangements to transfer him, once a bed is available. Attestations Medical Necessity Statement*: Patient requires continued hospital stay for close monitoring and further management Coding Level of Care Code Acute Freight Flow Sales Leader for Chg Fwd History Detailed Exam Detailed Medical Decision Making Moderate Complexity Diagnoses CHF (NYHA class IV, ACC/AHA stage D) I50.84 Nonischemic dilated cardiomyopathy I42.0 Nausea & vomiting R11.2 Vomiting type: unspecified Alcohol abuse F10.10
--- NOTE | 2021-04-01 12:01 | PM.PN ---
Subjective Subjective: Interval history: Patient was seen this morning, he had an episode of nonsustained V. tach, overnight, 3 beats, he tells me that he did not get much sleep last night due to all the urination, plans are for transfer to [facility] Vitals/I&O/Wt Last Vital Signs Temp 96.9 F L 03/31/21 06:00 Pulse 112 H 04/01/21 10:00 Resp 17 04/01/21 10:00 BP 118/75 04/01/21 10:00 Pulse Ox 97 04/01/21 10:00 03/31/21 04/01/21 04/01/21 22:59 06:59 14:59 Intake Total 240 / 1013.542 360 / 1373.542 240 / 240 Output Total 2650 / 2650 475 / 3125 Balance -2410 / -1636.458 -115 / -1751.458 240 / 240 Weight last 48 hrs Weight 83.603 kg Weight 84.623 kg Physical Exam Const: COMMON NORMALS: no acute distress and patient oriented x3 Resp: COMMON NORMALS: normal respiratory effort, No retractions, No use of accessory muscles and clear to auscultation bilaterally AUSCULTATION: clear to auscultation bilaterally Cardio: COMMON NORMALS: regular rate, regular rhythm, S1 normal heart sound present and S2 normal heart sound present RATE: regular rate RHYTHM: regular rhythm HEART SOUNDS: S1 normal heart sound present and S2 normal heart sound present GI: COMMON NORMALS: Normal to inspection, nondistended, normoactive bowel sounds present, Soft to palpation and non-tender PALPATION: Yes Soft to palpation Extremity: COMMON NORMALS: no pedal edema Neuro: COMMON NORMALS: patient oriented x3 Data : 04/01/21 03:14 04/01/21 03:14 Micro: Microbiology 03/30/21 14:45 Urine Culture - Final Urine,Clean Catch 03/30/21 10:37 Blood Culture - Preliminary Blood NEGATIVE TO DATE A&P Assessment and plan (1) Heart failure with reduced ejection fraction: Status: Acute (2) Nausea & vomiting: Status: Acute Qualifiers: Vomiting type: unspecified Qualified Code(s): R11.2 - Nausea with vomiting, unspecified (3) Alcoholic cardiomyopathy: Status: Acute (4) Lactic acidosis: Status: Acute (5) Hyponatremia: Status: Acute (6) CKD (chronic kidney disease) stage 2, GFR 60-89 ml/min: Status: Acute (7) Dehydration: Status: Acute Additional A&P Information 20 year old male with past medical history of alcohol abuse, newly diagnosed likely alcoholic cardiomyopathy, with EF of 12 %, he was sent from the [facility] ER couple of weeks back to a hospital in [place]. For further work-up.He was discharged from the hospital about a week back and has a recent appointment with a putty glazer in [place] on Monday. He came to the ER today with persistent nausea nonbloody vomiting going on for the last couple of days, he has not been able to keep any food or water down today all day due to nausea vomiting. He does also complain of shortness of breath which is likely at his baseline # HFrEF : Off dobutamine Started on Entresto Had a 3 beat of nonsustained V. tach Started on Mag-Tab Received Lasix overnight, -1.2 L Will closely monitor intake output. Monitor daily weight K>4, MG >2 Dose Lasix today Continue LifeVest Cardiology on consult Plans on transferring to [place] #Elevated lactic acid: Due to dehydration and hypotension. Less concern for infection Follow blood culture, urine culture, Hyperbilirubinemia, portal congestion from severe CHF Abdominal ultrasound shows 1. Small amount of ascites. 2. Abnormal portal vein flow. Bidirectional flow is often seen with tricuspid regurgitation, right-sided CHF and cirrhosis. 3. Diffuse gallbladder wall thickening is probably on the basis of hepatocellular disease and ascites. No cholelithiasis. No bile duct dilatation. #Nausea & vomiting: prn Zofran #Hypovolemic hyponatremia: Encourage p.o. intake, with a strict intake output charting. #SATHYA versus SATHYA on CKD stage II: Monitor BMP Avoid nephrotoxic's #DVT prophylaxis: On Lovenox Attestations Medical Necessity Statement*: Patient requires hospitalization for alcoholic cardiomyopathy, transferring to [place] Coding Level of Care Code Acute Quality Assurance Auditor for Chg Fwd Diagnoses Heart failure with reduced ejection fraction I50.20 Nausea & vomiting R11.2 Vomiting type: unspecified Alcoholic cardiomyopathy I42.6 Lactic acidosis E87.2 Hyponatremia E87.1 CKD (chronic kidney disease) stage 2, GFR 60-89 ml/min N18.2 Dehydration E86.0
--- NOTE | 2021-04-01 18:21 | PC.NURSE ---
Shift Note Frequent safety and comfort rounds continue. Orders and nursing care completed as indicated. Patient rested in bed most of the day, Around 1400 patient had an increased HR- 130s to 140s this sustained for about 45 minutes. Internist was notified orders to one time 25mg metoprolol, and increase daily dose to metoprolol 50mg- this is Mr. Brenner at home dose. Patient had bowel movement to and sat up for about 15 minutes with HR monitored closely. Dr. Blanchard called [facility] to transfer patient, still awaiting a bed at this time. Patient monitored for response to intervention and treatments. Patient's Aunt and girlfriend visited for most of today. Education provided includes new medications, frequent position changes, pain management, HR monitoring, and use and management of life vest. Patient verbalized understanding. Will continue to monitor.
--- NOTE | 2021-04-01 18:46 | PC.NURSE ---
[facility] called [phone] updating that we are still awaiting a bed at their facility and requesting updated vital signs. Temp: 98.0 oral HR: 120 BP: 94/59 O2: 97% on RA RR:14
[2021-04-01] MEDS: ondansetron 2 mg/ML SDV 2 mL 4 MG IVP (20:13)
[2021-04-02] VITALS (32 sets, daily range): BP systolic 84–108; BP diastolic 50–68; PULSE 92–122; RESP 14–48; TEMP 36.6–36.9; O2SAT 79–100
[2021-04-02 03:52] LABS: Basophils # 0.1 10^3/uL (0.0-0.1); Basophils % 0.9 %; Eosinophils # 0.1 10^3/uL (0.0-0.8); Eosinophils % 0.8 %; Hematocrit 48.2 % (42.0-52.0); Hemoglobin 15.6 g/dL (11.7-16.6); Lymphocytes # 2.8 10^3/uL (1.5-6.5); Lymphocytes % 28.1 %; Mean Corpuscular HGB Conc 32.4 g/dL (30.0-36.0); Mean Corpuscular Hemoglobin 28.7 pg (28.0-34.0); Mean Corpuscular Volume 88.8 fl (80-94); Mean Platelet Volume 10.6 fL (7.4-10.4); Monocytes # 0.6 10^3/uL (0.2-0.9); Monocytes % 5.9 %; Neutrophils # 6.28 10^3/uL (1.8-8.0); Neutrophils % 64.1 %; Nucleated Red Blood Cells % 0 %; Platelet Count 249 10^3/cmm (130-400); Red Blood Count 5.43 10^6/uL (4.1-5.3); Red Cell Distribution Width 18.1 % (12.1-15.1); White Blood Count 9.8 10^3/uL (4.5-13.0)
[2021-04-02 04:13] LABS: Alanine Aminotransferase 18 U/L (0-41); Albumin Level 3.3 g/dL (3.5-5.2); Alkaline Phosphatase 73 IU/L (40-130); Anion Gap 17.8 (5-19); Aspartate Amino Transferase 23 U/L (0-40); Blood Urea Nitrogen 15 mg/dL (6-20); Calcium 8.2 mg/dL (8.5-10.5); Carbon Dioxide 22 mmol/L (22-29); Chloride 98 mmol/L (98-107); Globulin 2.3 g/dL (1.3-4.6); Glomerular Filtration Rate 107.6 mL/min (90-130); Glucose 96 mg/dL (65-115); Osmolality Calculated 279 mOsm/kg (285-295); Phosphorus 3.5 mg/dL (2.5-4.5); Potassium 3.8 mmol/L (3.5-5.1); Sodium 134 mmol/L (136-145); Total Bilirubin 2.1 mg/dL (0.15-1.2); Total Protein 5.6 g/dL (6.6-8.7)
[2021-04-02] MEDS: spironolactone 25 mg Tablet PO (07:59)
[2021-04-02] MEDS: sacubitril/valsartan 24-26 mg Tablet 1 EACH PO ×2 (07:59→17:09)
[2021-04-02] MEDS: metoprolol succinate ER (24 HR) 50 mg Tablet PO (07:59)
--- NOTE | 2021-04-02 09:11 | P.PN_ITS ---
Subjective Subjective: Interval history: Patient diastolic complaining of feeling fatigued and short of breath with minimal exertion. Resting heart rate is in the 115-120. No other significant tachyarrhythmias. No recurrence of ventricular arrhythmias. The blood pressure has been staying in the low 100s and upper 90s. He is complaining of some shortness of breath this morning. We did not give any IV Lasix yesterday. No other specific complaints. Medications: Reviewed: Yes Medication Review Details: Current Medications Acetaminophen (Acetaminophen 325 Mg Tablet) 650 mg PO Q6H PRN PRN Reason: Mild/Mod Pain Or Temp >/= 101 Bisacodyl (Bisacodyl 5 Mg Tablet) 10 mg PO DAILY PRN; Protocol PRN Reason: Constipation (see protocol) Doxylamine Succinate (Doxylamine 25 Mg Tablet) 25 mg PO Q6H PRN PRN Reason: SLEEP Last Admin: 04/01/21 03:02 Dose: 25 mg Documented by: Furosemide (Furosemide 10 Mg/Ml Sdv 4ml) 40 mg IVP Q24H [facility] Dobutamine HCl/Dextrose (Dobutamine Drip) 500 mg in 250 mls @ 0 mls/hr IV .Q0M [facility]; Protocol Last Titration: 03/31/21 12:18 Dose: 0 mcg/kg/min, 0 mls/hr Documented by: Metoprolol Succinate (Metoprolol Succinate Er (24 Hr) 50 Mg Tablet) 50 mg PO DAILY [facility] Last Admin: 04/02/21 07:59 Dose: 50 mg Documented by: Ondansetron HCl (Ondansetron 2 Mg/Ml Sdv 2 Ml) 4 mg IVP Q8H PRN PRN Reason: vomiting, or N/V if npo Last Admin: 04/01/21 20:13 Dose: 4 mg Documented by: Potassium Chloride (Potassium Chloride Er 20 Meq Tablet) 20 meq PO ONCE ONE Stop: 04/02/21 09:12 Sacubitril/Valsartan (Sacubitril/Valsartan 24-26 Mg Tablet) 1 each PO BID [facility] Last Admin: 04/02/21 07:59 Dose: 1 each Documented by: Spironolactone (Spironolactone 25 Mg Tablet) 25 mg PO DAILY [facility] Last Admin: 04/02/21 07:59 Dose: 25 mg Documented by: Vitals/I&O/Wt Last Vital Signs Temp 97.8 F 04/02/21 04:30 Pulse 106 H 04/02/21 07:00 Resp 17 04/02/21 04:30 BP 108/67 04/02/21 05:00 Pulse Ox 88 L 04/02/21 07:00 04/01/21 04/02/21 04/02/21 22:59 06:59 14:59 Intake Total 240 / 720 Balance 240 / 720 Weight last 48 hrs Weight 184 lb Weight 184 lb 5 oz Physical Exam Narrative: EXAM NARRATIVE: GENERAL: The patient is alert and oriented times three. Not in any acute distress. HEENT: No significant pallor, icterus or lymphadenopathy.Oral cavity: There are no mucous membrane lesions. Fundus is not visualized NECK: Trachea appears to be central. No masses noted. Neck veins are slightly prominent. RESPIRATORY: Chest is symmetrical. No intercostals muscle retraction or any accessory muscle activation. There is no chest wall tenderness. Breath sounds are heard bilaterally. No rales or rhonchi heard. No evidence of any consolidation. BREASTS: Deferred. HEART: The heart sounds are normal. No S3 or S4. Systolic murmur grade 3 or 6 in the left sternal border and in the mitral area. No pericardial rub ABDOMEN: No vessel pulsations or distention. No tenderness. No organomegaly. Some dependent edema in the sacral region. bowel sounds are normally heard. : Deferred. RECTAL: Deferred. LYMPHATIC: No lymphadenopathy noted in the neck or groin. EXTREMITIES: No significant edema . Relatively cold MUSCULOSKELETAL: No acute joint deformities or swelling SKIN: There are no significant rashes or ecchymosis NEUROPSYCHIATRIC: The patient is alert and oriented x3. No focal motor deficits. Data : 04/02/21 03:22 04/02/21 03:22 Other Labs: Laboratory Last Values WBC 9.8 10^3/uL (4.5-13.0) 04/02/21 03:22 RBC 5.43 10^6/uL (4.1-5.3) H 04/02/21 03:22 Hgb 15.6 g/dL (11.7-16.6) 04/02/21 03:22 Hct 48.2 % (42.0-52.0) 04/02/21 03:22 MCV 88.8 fl (80-94) 04/02/21 03:22 MCH 28.7 pg (28.0-34.0) 04/02/21 03:22 MCHC 32.4 g/dL (30.0-36.0) 04/02/21 03:22 RDW 18.1 % (12.1-15.1) H 04/02/21 03:22 Plt Count 249 10^3/cmm (130-400) 04/02/21 03:22 MPV 10.6 fL (7.4-10.4) H 04/02/21 03:22 Neut % (Auto) 64.1 % 04/02/21 03:22 Lymph % (Auto) 28.1 % 04/02/21 03:22 [place] % (Auto) 5.9 % 04/02/21 03:22 Eos % (Auto) 0.8 % 04/02/21 03:22 Baso % (Auto) 0.9 % 04/02/21 03:22 Neut # (Auto) 6.28 10^3/uL (1.8-8.0) 04/02/21 03:22 Lymph # (Auto) 2.8 10^3/uL (1.5-6.5) 04/02/21 03:22 [place] # (Auto) 0.6 10^3/uL (0.2-0.9) 04/02/21 03:22 Eos # (Auto) 0.1 10^3/uL (0.0-0.8) 04/02/21 03:22 Baso # (Auto) 0.1 10^3/uL (0.0-0.1) 04/02/21 03:22 Nucleated RBC % (auto) 0 % 04/02/21 03:22 Nucleated RBCs # 0.0 /100WBC 04/02/21 03:22 ESR < 1 mm/hr (0-10) 03/30/21 10:37 PT 21.90 SECONDS (12.1-14.9) H 03/29/21 17:38 INR 1.87 (0.8-1.2) H 03/29/21 17:38 APTT 29.8 SECONDS (23.9-36.7) 03/29/21 17:38 Specimen Type Arterial 03/30/21 Unknown Sample Site Radial, right 03/30/21 Unknown ABG pH 7.49 (7.35-7.45) H 03/30/21 Unknown ABG pCO2 27.2 mmHg (35-45) L 03/30/21 Unknown ABG pO2 66.3 mmHg (80.0-100.0) L 03/30/21 Unknown ABG HCO3 20.8 mmol/L (22-26) L 03/30/21 Unknown ABG Base Excess -0.9 mmol/L (-2.0-2.0) 03/30/21 Unknown Chris Test Pos 03/30/21 Unknown Hematocrit 49.2 % (42-52) 03/30/21 Unknown O2 Delivery Device Room air 03/30/21 Unknown FiO2 21.0 % 03/30/21 Unknown 3Rd Pressman ID Cak 03/30/21 Unknown Sodium 134 mmol/L (136-145) L 04/02/21 03:22 Potassium 3.8 mmol/L (3.5-5.1) 04/02/21 03:22 Chloride 98 mmol/L (98-107) 04/02/21 03:22 Carbon Dioxide 22 mmol/L (22-29) 04/02/21 03:22 Anion Gap 17.8 (5-19) 04/02/21 03:22 BUN 15 mg/dL (6-20) 04/02/21 03:22 Creatinine 0.9 mg/dL (0.7-1.2) 04/02/21 03:22 GFR Calculation 107.6 mL/min (90-130) 04/02/21 03:22 Glucose 96 mg/dL (65-115) 04/02/21 03:22 Calculated Osmolality 279 mOsm/kg (285-295) L 04/02/21 03:22 Lactic Acid 2.4 mmol/L (0.5-2.2) H 03/30/21 03:46 Lactic Acid (Sepsis) 3.9 mmol/L (0.5-2.2) H 03/30/21 10:37 Lactate 4.3 mmol/L (0.5-2.2) H* 03/29/21 17:38 Calcium 8.2 mg/dL (8.5-10.5) L 04/02/21 03:22 Phosphorus 3.5 mg/dL (2.5-4.5) 04/02/21 03:22 Magnesium 2.0 mg/dL (1.7-2.3) 04/02/21 03:22 Total Bilirubin 2.1 mg/dL (0.15-1.2) H 04/02/21 03:22 Direct Bilirubin 1.20 mg/dL (0.00-0.30) H 03/30/21 10:37 GGT 95 U/L (8-61) H 03/30/21 10:37 AST 23 U/L (0-40) 04/02/21 03:22 ALT 18 U/L (0-41) 04/02/21 03:22 Alkaline Phosphatase 73 IU/L (40-130) 04/02/21 03:22 Ammonia 15 umol/L (16-60) L 03/29/21 19:20 Troponin T Baseline 20 ng/L (0-15) H 03/29/21 17:38 Troponin T 120 Minute 18.70 ng/L (0-15) H 03/29/21 19:20 Delta Troponin T -1.30 ABS# (0-10) L 03/29/21 19:20 Troponin T Hi Sens 6Hr 17.77 ng/L (0-15) H 03/29/21 22:39 Troponin T Hi Sens 6Hr Delta -2.23 ng/L (0-12) L 03/29/21 22:39 C-Reactive Protein 11.0 mg/L (0.0-4.9) H 03/30/21 10:37 NT-Pro-B Natriuret Pep 60061 pg/mL (0-125) H 03/29/21 17:38 Total Protein 5.6 g/dL (6.6-8.7) L 04/02/21 03:22 Albumin 3.3 g/dL (3.5-5.2) L 04/02/21 03:22 Globulin 2.3 g/dL (1.3-4.6) 04/02/21 03:22 Lipase 22 U/L (13-60) 03/30/21 10:37 Procalcitonin 0.18 ng/mL (0-0.5) 03/30/21 03:46 Procalcitonin Cancelled 03/30/21 03:46 TSH 5.13 uIU/mL (0.27-4.20) H 03/30/21 10:37 Urine Color Yellow (Yellow) 03/29/21 22:45 Urine Appearance Clear (CLEAR) 03/29/21 22:45 Urine pH 5 (5-7) 03/29/21 22:45 Ur Specific [place] 1.025 (1.005-1.030) 03/29/21 22:45 Urine Protein Neg (Negative) 03/29/21 22:45 Urine Glucose (UA) Norm (Normal) 03/29/21 22:45 Urine Ketones Negative (Negative) 03/29/21 22:45 Urine Blood 2+ (Negative) H 03/29/21 22:45 Urine Nitrate Negative (Negative) 03/29/21 22:45 Urine Bilirubin 1+ (Negative) H 03/29/21 22:45 Urine Urobilinogen 1 mg/dL (Negative) H 03/29/21 22:45 Ur Leukocyte Esterase Trace (Negative) H 03/29/21 22:45 Urine RBC 0-4 /hpf (0-2) H 03/29/21 22:45 Urine WBC 10-15 /hpf (0-5) H 03/29/21 22:45 Ur Squamous Epith Cells 0-4 /hpf (0-5) H 03/29/21 22:45 Amorphous Sediment Not Reportable 03/29/21 22:45 Urine Bacteria Trace /hpf (NONE) 03/29/21 22:45 Hyaline Casts 0-4 /lpf H 03/29/21 22:45 Urine Mucus 1+ /hpf 03/29/21 22:45 Urine Opiates Screen Negative ng/mL (Negative) 03/30/21 14:45 Ur Barbiturates Screen Negative ng/mL (Negative) 03/30/21 14:45 Ur Phencyclidine Scrn Negative ng/mL (Negative) 03/30/21 14:45 Ur Amphetamines Screen Negative ng/mL (Negative) 03/30/21 14:45 U Benzodiazepines Scrn Negative ng/mL (Negative) 03/30/21 14:45 Urine Cocaine Screen Negative ng/mL (Negative) 03/30/21 14:45 U Marijuana (THC) Screen Positive ng/mL (Negative) H 03/30/21 14:45 Ethyl Alcohol < 10 mg/dL (0-10) 03/30/21 10:37 SARS-CoV-2 Ag (Rapid) Negative (Negative) 03/29/21 21:55 Micro: Microbiology 03/30/21 14:45 Urine Culture - Final Urine,Clean Catch A&P Assessment and plan (1) CHF (NYHA class IV, ACC/AHA stage D): The heart failure seems to be getting compensated. We will try to optimize the GDMT. So far he seems to be tolerating the Entresto well. Patient may benefit from invasive hemodynamic monitoring. Also may benefit from a cardiac catheterization to evaluate the coronary arteries. It would be appropriate to perform these procedures in the facility where he can get advanced heart failure therapy. I may start him on IV Lasix 40 mg daily. Potassium 20 mg p.o. daily. 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 So far he has not had any LifeVest discharges. He had a couple of short runs of nonsustained ventricular tachycardia's on the monitor, longest was of 4 beats. We may consider restarting the Dobutrex, if hi s shortness of breath gets any worse. Status: Acute (3) Nausea & vomiting: Patient has a feeling of fullness in the stomach with meals. He has some occasional nausea. Overall the symptoms are better. Status: Acute Qualifiers: Vomiting type: unspecified Qualified Code(s): R11.2 - Nausea with vomiting, unspecified (4) Alcohol abuse: Patient quit drinking 2 months ago. He is not planning to go back on this. He seems understand implications Status: Acute Additional A&P Information Ventricular arrhythmia : Patient had a 3 beat run of nonsustained regular tachycardia on the monitor. He had a potassium and magnesium supplementation. May continue the current medications Is awaiting transfer to the [facility] in [place]. We will continue on the current medications for the time being. Attestations Medical Necessity Statement*: Patient requires continued hospital stay for close monitoring and further management Coding Level of Care Code Acute Bar Finish Operator for Chg Fwd History Detailed Exam Detailed Medical Decision Making Moderate Complexity Diagnoses CHF (NYHA class IV, ACC/AHA stage D) I50.84 Nonischemic dilated cardiomyopathy I42.0 Nausea & vomiting R11.2 Vomiting type: unspecified Alcohol abuse F10.10
[2021-04-02] MEDS: potassium chloride ER 20 mEq Tablet PO (09:26)
[2021-04-02] MEDS: acetaminophen 325 mg Tablet 650 MG PO (11:22)
[2021-04-02] MEDS: FUROsemide 10 mg/mL SDV 4mL 40 MG IVP (12:00)
[2021-04-02] MEDS: ondansetron 2 mg/ML SDV 2 mL 4 MG IVP ×2 (12:45→20:38)
[2021-04-02] MEDS: lanolin oint 7 gm 1 APPLIC TOPICAL (14:24)
--- NOTE | 2021-04-02 16:41 | PM.PN ---
Subjective Subjective: Interval history: This morning patient was seen, no nausea, no vomiting, no chest pain, no palpitations, he is currently awaiting a bed at [place] Vitals/I&O/Wt Last Vital Signs Temp 97.8 F 04/02/21 04:30 Pulse 109 H 04/02/21 16:00 Resp 15 04/02/21 16:00 BP 92/63 04/02/21 16:00 Pulse Ox 98 04/02/21 16:00 04/02/21 04/02/21 04/02/21 06:59 14:59 22:59 Intake Total 480 / 480 Balance 480 / 480 Weight last 48 hrs Weight 83.461 kg Weight 83.603 kg Physical Exam Const: COMMON NORMALS: no acute distress and patient oriented x3 HENMT: COMMON NORMALS: normocephalic HEAD & SCALP: normocephalic Resp: COMMON NORMALS: normal respiratory effort, No retractions, No use of accessory muscles and clear to auscultation bilaterally AUSCULTATION: clear to auscultation bilaterally Cardio: COMMON NORMALS: regular rate, regular rhythm, S1 normal heart sound present and S2 normal heart sound present RATE: regular rate RHYTHM: regular rhythm HEART SOUNDS: S1 normal heart sound present and S2 normal heart sound present GI: COMMON NORMALS: Normal to inspection, nondistended, normoactive bowel sounds present, Soft to palpation and non-tender PALPATION: Yes Soft to palpation Extremity: COMMON NORMALS: no pedal edema Neuro: COMMON NORMALS: patient oriented x3 Psych: COMMON NORMALS: mental status grossly normal Data : 04/02/21 03:22 04/02/21 03:22 A&P Assessment and plan (1) Heart failure with reduced ejection fraction: Status: Acute (2) Nausea & vomiting: Status: Acute Qualifiers: Vomiting type: unspecified Qualified Code(s): R11.2 - Nausea with vomiting, unspecified (3) Alcoholic cardiomyopathy: Status: Acute (4) Lactic acidosis: Status: Acute (5) Hyponatremia: Status: Acute (6) CKD (chronic kidney disease) stage 2, GFR 60-89 ml/min: Status: Acute (7) Dehydration: Status: Acute Additional A&P Information 20 year old male with past medical history of alcohol abuse, newly diagnosed likely alcoholic cardiomyopathy, with EF of 12 %, he was sent from the [facility] couple of weeks back to a hospital in [place]. For further work-up.He was discharged from the hospital about a week back and has a recent appointment with a manager sas in [place] on Monday. He came to the ER today with persistent nausea nonbloody vomiting going on for the last couple of days, he has not been able to keep any food or water down today all day due to nausea vomiting. He does also complain of shortness of breath which is likely at his baseline # HFrEF : Off dobutamine Started on Entresto Had a 3 beat of nonsustained V. tach Started on Mag-Tab Received Lasix today Will closely monitor intake output. Monitor daily weight K>4, MG >2 Dose Lasix today Continue LifeVest Cardiology on consult Plans on transferring to [place] Will transfer to [facility] #Elevated lactic acid: Due to dehydration and hypotension. Less concern for infection Follow blood culture, urine culture, Hyperbilirubinemia, portal congestion from severe CHF Abdominal ultrasound shows 1. Small amount of ascites. 2. Abnormal portal vein flow. Bidirectional flow is often seen with tricuspid regurgitation, right-sided CHF and cirrhosis. 3. Diffuse gallbladder wall thickening is probably on the basis of hepatocellular disease and ascites. No cholelithiasis. No bile duct dilatation. #Nausea & vomiting: prn Zofran #Hypovolemic hyponatremia: Encourage p.o. intake, with a strict intake output charting. #SATHYA versus SATHYA on CKD stage II: Monitor BMP Avoid nephrotoxic's #DVT prophylaxis: On Lovenox Attestations Medical Necessity Statement*: Patient requires hospitalization for heart failure with reduced ejection fraction, awaiting transfer to [place] Coding Level of Care Code Acute Rehabilitation Tech for Chg Fwd Diagnoses Heart failure with reduced ejection fraction I50.20 Nausea & vomiting R11.2 Vomiting type: unspecified Alcoholic cardiomyopathy I42.6 Lactic acidosis E87.2 Hyponatremia E87.1 CKD (chronic kidney disease) stage 2, GFR 60-89 ml/min N18.2 Dehydration E86.0
--- NOTE | 2021-04-02 17:19 | PC.NURSE ---
Shift Assessment Frequent safety and comfort rounds continue. Orders and nursing care completed as indicated. Patient rested in bed most of the day. Patient had bowel movement and given lasix today noted to have little urine output. Plans to transfer to [facility], still awaiting a bed at this time. Patient monitored for response to intervention and treatments. Patient's Aunt and girlfriend visited for most of today. Education provided includes new medications, frequent position changes, pain management, HR monitoring, and use and management of life vest. Patient verbalized understanding. Will continue to monitor.
[2021-04-02] MEDS: guaiFENesin-codeine UDC 10 mL PO (21:39)
[2021-04-03] VITALS (24 sets, daily range): BP systolic 92–108; BP diastolic 53–70; PULSE 85–114; RESP 13–31; TEMP 36.8; O2SAT 92–100
[2021-04-03 04:05] LABS: Basophils # 0.1 10^3/uL (0.0-0.1); Basophils % 1.2 %; Eosinophils # 0.1 10^3/uL (0.0-0.8); Eosinophils % 0.8 %; Hematocrit 45.6 % (42.0-52.0); Lymphocytes # 2.8 10^3/uL (1.5-6.5); Lymphocytes % 31.3 %; Mean Corpuscular HGB Conc 32.9 g/dL (30.0-36.0); Mean Corpuscular Hemoglobin 28.8 pg (28.0-34.0); Mean Corpuscular Volume 87.7 fl (80-94); Mean Platelet Volume 11.4 fL (7.4-10.4); Monocytes # 0.6 10^3/uL (0.2-0.9); Monocytes % 6.5 %; Neutrophils # 5.42 10^3/uL (1.8-8.0); Neutrophils % 59.9 %; Nucleated Red Blood Cells % 0 %; Platelet Count 250 10^3/cmm (130-400); Red Cell Distribution Width 17.6 % (12.1-15.1); White Blood Count 9.1 10^3/uL (4.5-13.0)
[2021-04-03 04:25] LABS: Alanine Aminotransferase 19 U/L (0-41); Albumin Level 3.2 g/dL (3.5-5.2); Alkaline Phosphatase 62 IU/L (40-130); Anion Gap 23.5 (5-19); Aspartate Amino Transferase 22 U/L (0-40); Blood Urea Nitrogen 20 mg/dL (6-20); Calcium 9.5 mg/dL (8.5-10.5); Carbon Dioxide 19 mmol/L (22-29); Chloride 98 mmol/L (98-107); Globulin 2.3 g/dL (1.3-4.6); Glomerular Filtration Rate 85.3 mL/min (90-130); Glucose 73 mg/dL (65-115); Magnesium 1.9 mg/dL (1.7-2.3); Osmolality Calculated 283 mOsm/kg (285-295); Phosphorus 3.8 mg/dL (2.5-4.5); Potassium 4.5 mmol/L (3.5-5.1); Sodium 136 mmol/L (136-145); Total Bilirubin 2.8 mg/dL (0.15-1.2); Total Protein 5.5 g/dL (6.6-8.7)
--- NOTE | 2021-04-03 05:42 | PC.NURSE ---
Wore ordered CPAP for 3 hours throughout night, uneventful night except for one occurance of desatting while sleeping to 82 but came up once awake
--- NOTE | 2021-04-03 05:45 | PC.NURSE ---
[facility] informed this nurse they are still waiting on a bed for placement
--- NOTE | 2021-04-03 07:39 | P.PN_ITS ---
Subjective Subjective: Interval history: No complaints overnight. Denies being short of breath. No chest discomfort. Approximately 600 cc out. No arrhythmias overnight Medications: Reviewed: Yes Vitals/I&O/Wt Last Vital Signs Temp 97.8 F 04/02/21 04:30 Pulse 99 04/03/21 07:00 Resp 25 H 04/03/21 07:00 BP 94/60 04/03/21 07:00 Pulse Ox 98 04/03/21 07:00 04/02/21 04/03/21 04/03/21 22:59 06:59 14:59 Intake Total 340 / 820 Output Total 100 / 100 130 / 230 Balance 240 / 720 -130 / 590 Weight last 48 hrs Weight 83.007 kg Weight 83.461 kg Physical Exam Narrative: EXAM NARRATIVE: General exam no distress Neck is supple Cardiovascular regular rate and rhythm with gallop Lungs clear. I do not hear any crackles Abdomen is soft, positive bowel sounds Extremities no cyanosis clubbing or edema Data : 04/03/21 03:12 04/03/21 03:12 A&P Assessment and plan (1) Heart failure with reduced ejection fraction: He appears to be becoming compensated. He was placed on Entresto He is currently on Lasix every 24 hours. Urine output has diminished. He is able to lie flat. No further arrhythmias last night. Markedly low ejection fraction around 12% Has a LifeVest on Previously had some nonsustained ventricular tachycardia. Magnesium added. Metoprolol increased. None noted last night. Potassium and magnesium acceptable today. Is not on dobutamine currently. On Aldactone as well. Awaiting transfer to [place] Status: Acute (2) Nausea & vomiting: Improved Status: Acute Qualifiers: Vomiting type: unspecified Qualified Code(s): R11.2 - Nausea with vomiting, unspecified (3) Alcoholic cardiomyopathy: Status: Acute (4) Lactic acidosis: Status: Acute (5) Hyponatremia: Resolved Status: Acute (6) CKD (chronic kidney disease) stage 2, GFR 60-89 ml/min: Stable Status: Acute (7) Dehydration: Resolved Status: Acute Additional A&P Information History of alcohol abuse Elevated bilirubin, likely secondary to his chronic heart failure no evidence for cholecystitis. Full code Lovenox for DVT prophylaxis Attestations Medical Necessity Statement*: Needs continued hospitalization secondary to severe heart failure requiring further investigation at tertiary care center. Coding Level of Care Code Acute Compensation And Benefits Administrator for Chg Fwd Diagnoses Heart failure with reduced ejection fraction I50.20 Nausea & vomiting R11.2 Vomiting type: unspecified Alcoholic cardiomyopathy I42.6 Lactic acidosis E87.2 Hyponatremia E87.1 CKD (chronic kidney disease) stage 2, GFR 60-89 ml/min N18.2 Dehydration E86.0
[2021-04-03] MEDS: spironolactone 25 mg Tablet PO (07:48)
[2021-04-03] MEDS: metoprolol succinate ER (24 HR) 50 mg Tablet PO (07:48)
[2021-04-03] MEDS: sacubitril/valsartan 24-26 mg Tablet 1 EACH PO ×2 (07:48→17:09)
[2021-04-03] MEDS: enoxaparin 40 mg/0.4 mL Syringe SUBCUT (08:33)
--- NOTE | 2021-04-03 09:08 | P.PN_ITS ---
Subjective Subjective: Interval history: Overall the patient is feeling okay. He is complaining of low urine output since yesterday. Continues to have class IV heart failure symptoms. No chest pain. No fever or chills. No significant cough. No leg swelling Medications: Reviewed: Yes Medication Review Details: Current Medications Acetaminophen (Acetaminophen 325 Mg Tablet) 650 mg PO Q6H PRN PRN Reason: Mild/Mod Pain Or Temp >/= 101 Last Admin: 04/02/21 11:22 Dose: 650 mg Documented by: Bisacodyl (Bisacodyl 5 Mg Tablet) 10 mg PO DAILY PRN; Protocol PRN Reason: Constipation (see protocol) Doxylamine Succinate (Doxylamine 25 Mg Tablet) 25 mg PO Q6H PRN PRN Reason: SLEEP Last Admin: 04/01/21 03:02 Dose: 25 mg Documented by: Enoxaparin Sodium (Enoxaparin 40 Mg/0.4 Ml Syringe) 40 mg SUBCUT Q24H [facility] Last Admin: 04/03/21 08:33 Dose: 40 mg Documented by: Furosemide (Furosemide 10 Mg/Ml Sdv 4ml) 40 mg IVP Q24H [facility] Last Admin: 04/02/21 12:00 Dose: 40 mg Documented by: Guaifenesin/Codeine Phosphate (Guaifenesin-Codeine Udc 10 Ml) 10 ml PO Q4H PRN PRN Reason: COUGH Last Admin: 04/02/21 21:39 Dose: 10 ml Documented by: Lanolin (Lanolin Oint 7 Gm) 1 applic TOPICAL PRN PRN PRN Reason: DRYNESS Last Admin: 04/02/21 14:24 Dose: 1 applic Documented by: Metoprolol Succinate (Metoprolol Succinate Er (24 Hr) 50 Mg Tablet) 50 mg PO DAILY [facility] Last Admin: 04/03/21 07:48 Dose: 50 mg Documented by: Ondansetron HCl (Ondansetron 2 Mg/Ml Sdv 2 Ml) 4 mg IVP Q8H PRN PRN Reason: vomiting, or N/V if npo Last Admin: 04/02/21 20:38 Dose: 4 mg Documented by: Sacubitril/Valsartan (Sacubitril/Valsartan 24-26 Mg Tablet) 1 each PO BID [facility] Last Admin: 04/03/21 07:48 Dose: 1 each Documented by: Spironolactone (Spironolactone 25 Mg Tablet) 25 mg PO DAILY LUCIN[facility] Last Admin: 04/03/21 07:48 Dose: 25 mg Documented by: Vitals/I&O/Wt Last Vital Signs Temp 97.8 F 04/02/21 04:30 Pulse 103 H 04/03/21 08:00 Resp 17 04/03/21 08:00 BP 95/70 04/03/21 08:00 Pulse Ox 100 04/03/21 08:00 04/02/21 04/03/21 04/03/21 22:59 06:59 14:59 Intake Total 340 / 820 360 / 360 Output Total 100 / 100 130 / 230 Balance 240 / 720 -130 / 590 360 / 360 Weight last 48 hrs Weight 183 lb Weight 184 lb Physical Exam Narrative: EXAM NARRATIVE: GENERAL: The patient is alert and oriented times three. Not in any acute distress. HEENT: No significant pallor, icterus or lymphadenopathy.Oral cavity: There are no mucous membrane lesions. Fundus is not visualized NECK: Trachea appears to be central. No masses noted. Neck veins are slightly prominent. RESPIRATORY: Chest is symmetrical. No intercostals muscle retraction or any accessory muscle activation. There is no chest wall tenderness. Breath sounds are heard bilaterally. No rales or rhonchi heard. No evidence of any consolidation. BREASTS: Deferred. HEART: The heart sounds are normal. No S3 or S4. Systolic murmur grade 3 or 6 in the left sternal border and in the mitral area. No pericardial rub ABDOMEN: No vessel pulsations or distention. No tenderness. No organomegaly. Some dependent edema in the sacral region. bowel sounds are normally heard. : Deferred. RECTAL: Deferred. LYMPHATIC: No lymphadenopathy noted in the neck or groin. EXTREMITIES: No significant edema . Relatively cold MUSCULOSKELETAL: No acute joint deformities or swelling SKIN: There are no significant rashes or ecchymosis NEUROPSYCHIATRIC: The patient is alert and oriented x3. No focal motor deficits. Data : 04/03/21 03:12 04/03/21 03:12 Other Labs: Laboratory Last Values WBC 9.1 10^3/uL (4.5-13.0) 04/03/21 03:12 RBC 5.20 10^6/uL (4.1-5.3) 04/03/21 03:12 Hgb 15.0 g/dL (11.7-16.6) 04/03/21 03:12 Hct 45.6 % (42.0-52.0) 04/03/21 03:12 MCV 87.7 fl (80-94) 04/03/21 03:12 MCH 28.8 pg (28.0-34.0) 04/03/21 03:12 MCHC 32.9 g/dL (30.0-36.0) 04/03/21 03:12 RDW 17.6 % (12.1-15.1) H 04/03/21 03:12 Plt Count 250 10^3/cmm (130-400) 04/03/21 03:12 MPV 11.4 fL (7.4-10.4) H 04/03/21 03:12 Neut % (Auto) 59.9 % 04/03/21 03:12 Lymph % (Auto) 31.3 % 04/03/21 03:12 [place] % (Auto) 6.5 % 04/03/21 03:12 Eos % (Auto) 0.8 % 04/03/21 03:12 Baso % (Auto) 1.2 % 04/03/21 03:12 Neut # (Auto) 5.42 10^3/uL (1.8-8.0) 04/03/21 03:12 Lymph # (Auto) 2.8 10^3/uL (1.5-6.5) 04/03/21 03:12 [place] # (Auto) 0.6 10^3/uL (0.2-0.9) 04/03/21 03:12 Eos # (Auto) 0.1 10^3/uL (0.0-0.8) 04/03/21 03:12 Baso # (Auto) 0.1 10^3/uL (0.0-0.1) 04/03/21 03:12 Nucleated RBC % (auto) 0 % 04/03/21 03:12 Nucleated RBCs # 0.0 /100WBC 04/03/21 03:12 ESR < 1 mm/hr (0-10) 03/30/21 10:37 PT 21.90 SECONDS (12.1-14.9) H 03/29/21 17:38 INR 1.87 (0.8-1.2) H 03/29/21 17:38 APTT 29.8 SECONDS (23.9-36.7) 03/29/21 17:38 Specimen Type Arterial 03/30/21 Unknown Sample Site Radial, right 03/30/21 Unknown ABG pH 7.49 (7.35-7.45) H 03/30/21 Unknown ABG pCO2 27.2 mmHg (35-45) L 03/30/21 Unknown ABG pO2 66.3 mmHg (80.0-100.0) L 03/30/21 Unknown ABG HCO3 20.8 mmol/L (22-26) L 03/30/21 Unknown ABG Base Excess -0.9 mmol/L (-2.0-2.0) 03/30/21 Unknown Chris Test Pos 03/30/21 Unknown Hematocrit 49.2 % (42-52) 03/30/21 Unknown O2 Delivery Device Room air 03/30/21 Unknown FiO2 21.0 % 03/30/21 Unknown Peanut Shaker ID Cak 03/30/21 Unknown Sodium 136 mmol/L (136-145) 04/03/21 03:12 Potassium 4.5 mmol/L (3.5-5.1) 04/03/21 03:12 Chloride 98 mmol/L (98-107) 04/03/21 03:12 Carbon Dioxide 19 mmol/L (22-29) L 04/03/21 03:12 Anion Gap 23.5 (5-19) H 04/03/21 03:12 BUN 20 mg/dL (6-20) 04/03/21 03:12 Creatinine 1.1 mg/dL (0.7-1.2) 04/03/21 03:12 GFR Calculation 85.3 mL/min (90-130) L 04/03/21 03:12 Glucose 73 mg/dL (65-115) 04/03/21 03:12 Calculated Osmolality 283 mOsm/kg (285-295) L 04/03/21 03:12 Lactic Acid 2.4 mmol/L (0.5-2.2) H 03/30/21 03:46 Lactic Acid (Sepsis) 3.9 mmol/L (0.5-2.2) H 03/30/21 10:37 Lactate 4.3 mmol/L (0.5-2.2) H* 03/29/21 17:38 Calcium 9.5 mg/dL (8.5-10.5) 04/03/21 03:12 Phosphorus 3.8 mg/dL (2.5-4.5) 04/03/21 03:12 Magnesium 1.9 mg/dL (1.7-2.3) 04/03/21 03:12 Total Bilirubin 2.8 mg/dL (0.15-1.2) H 04/03/21 03:12 Direct Bilirubin 1.20 mg/dL (0.00-0.30) H 03/30/21 10:37 GGT 95 U/L (8-61) H 03/30/21 10:37 AST 22 U/L (0-40) 04/03/21 03:12 ALT 19 U/L (0-41) 04/03/21 03:12 Alkaline Phosphatase 62 IU/L (40-130) 04/03/21 03:12 Ammonia 15 umol/L (16-60) L 03/29/21 19:20 Troponin T Baseline 20 ng/L (0-15) H 03/29/21 17:38 Troponin T 120 Minute 18.70 ng/L (0-15) H 03/29/21 19:20 Delta Troponin T -1.30 ABS# (0-10) L 03/29/21 19:20 Troponin T Hi Sens 6Hr 17.77 ng/L (0-15) H 03/29/21 22:39 Troponin T Hi Sens 6Hr Delta -2.23 ng/L (0-12) L 03/29/21 22:39 C-Reactive Protein 11.0 mg/L (0.0-4.9) H 03/30/21 10:37 NT-Pro-B Natriuret Pep 29283 pg/mL (0-125) H 03/29/21 17:38 Total Protein 5.5 g/dL (6.6-8.7) L 04/03/21 03:12 Albumin 3.2 g/dL (3.5-5.2) L 04/03/21 03:12 Globulin 2.3 g/dL (1.3-4.6) 04/03/21 03:12 Lipase 22 U/L (13-60) 03/30/21 10:37 Procalcitonin 0.18 ng/mL (0-0.5) 03/30/21 03:46 Procalcitonin Cancelled 03/30/21 03:46 TSH 5.13 uIU/mL (0.27-4.20) H 03/30/21 10:37 Urine Color Yellow (Yellow) 03/29/21 22:45 Urine Appearance Clear (CLEAR) 03/29/21 22:45 Urine pH 5 (5-7) 03/29/21 22:45 Ur Specific Sutton 1.025 (1.005-1.030) 03/29/21 22:45 Urine Protein Neg (Negative) 03/29/21 22:45 Urine Glucose (UA) Norm (Normal) 03/29/21 22:45 Urine Ketones Negative (Negative) 03/29/21 22:45 Urine Blood 2+ (Negative) H 03/29/21 22:45 Urine Nitrate Negative (Negative) 03/29/21 22:45 Urine Bilirubin 1+ (Negative) H 03/29/21 22:45 Urine Urobilinogen 1 mg/dL (Negative) H 03/29/21 22:45 Ur Leukocyte Esterase Trace (Negative) H 03/29/21 22:45 Urine RBC 0-4 /hpf (0-2) H 03/29/21 22:45 Urine WBC 10-15 /hpf (0-5) H 03/29/21 22:45 Ur Squamous Epith Cells 0-4 /hpf (0-5) H 03/29/21 22:45 Amorphous Sediment Not Reportable 03/29/21 22:45 Urine Bacteria Trace /hpf (NONE) 03/29/21 22:45 Hyaline Casts 0-4 /lpf H 03/29/21 22:45 Urine Mucus 1+ /hpf 03/29/21 22:45 Urine Opiates Screen Negative ng/mL (Negative) 03/30/21 14:45 Ur Barbiturates Screen Negative ng/mL (Negative) 03/30/21 14:45 Ur Phencyclidine Scrn Negative ng/mL (Negative) 03/30/21 14:45 Ur Amphetamines Screen Negative ng/mL (Negative) 03/30/21 14:45 U Benzodiazepines Scrn Negative ng/mL (Negative) 03/30/21 14:45 Urine Cocaine Screen Negative ng/mL (Negative) 03/30/21 14:45 U Marijuana (THC) Screen Positive ng/mL (Negative) H 03/30/21 14:45 Ethyl Alcohol < 10 mg/dL (0-10) 03/30/21 10:37 SARS-CoV-2 Ag (Rapid) Negative (Negative) 03/29/21 21:55 A&P Assessment and plan (1) CHF (NYHA class IV, ACC/AHA stage D): Patient continues to have low output state symptoms. His low urine output could be related to the low cardiac output. I may give a trial of IV dobutamine 5 mics per KG per minute for 12 hours or so. He will be closely watched on telemetry. If he has no arrhythmia, he may be moved to the telemetry floor. Discussed with the Dr. Skaggs. Status: Acute (2) Hypotension: Was related to the LV dysfunction. Blood pressure seems to be staying in the 90s most of the times. We will continue the Entresto at this point. 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 So far he has not had any LifeVest discharges. He had a couple of short runs of nonsustained ventricular tachycardia's on the monitor, longest was of 4 beats. We may consider restarting the Dobutrex, if his shortness of breath gets any worse. Status: Acute (4) Alcohol abuse: Patient quit drinking 2 months ago. He is not planning to go back on this. He seems understand implications Status: Acute Additional A&P Information Ventricular arrhythmia : Patient had a 3 beat run of nonsustained regular tachycardia on the monitor. He had a potassium and magnesium supplementation. May continue the current medications Plan was once again discussed with the patient and his family in detail which is understood well. The possible side effects of the IV medication also were discussed Is awaiting transfer to the [facility] in [place]. Continue closely watching on the IV Dobutrex. Attestations Medical Necessity Statement*: Patient requires continued hospital stay for close monitoring and further management Coding Level of Care Code Acute Green Material Value Added Assessor for [facility] Fw Diagnoses CHF (NYHA class IV, ACC/AHA stage D) I50.84 Hypotension I95.89 Hypotension type: other hypotension type Nonischemic dilated cardiomyopathy I42.0 Alcohol abuse F10.10
[2021-04-03] MEDS: ondansetron 2 mg/ML SDV 2 mL 4 MG IVP (11:00)
[2021-04-03] MEDS: DOBUTamine drip 500 MG/250 ML PREMIX 12.45 MG IV (11:32)
[2021-04-03] MEDS: FUROsemide 10 mg/mL SDV 4mL 40 MG IVP (13:30)
--- NOTE | 2021-04-03 18:09 | PC.NURSE ---
uneventful day shift, still awaiting a bed at [facility]. restarted patient on dobutamine drip this afternoon. Dr. Skaggs placed transfer orders to [facility] floor, awaiting available bed at this time.
--- NOTE | 2021-04-03 23:45 | PC.NURSE ---
[facility] notified this nurse patient is still on a wait list for a bed
[2021-04-04] VITALS (8 sets, daily range): BP systolic 94–114; BP diastolic 57–62; PULSE 90–104; RESP 18–29; O2SAT 92–98
--- NOTE | 2021-04-04 03:34 | PC.NURSE ---
Shift Note Frequent safety and comfort rounds continue. Orders and/or nursing care completed as indicated. Patient monitored for response to intervention and treatment(s). Education provided includes[New medications]. Patient and/or customer support representative [Reported understanding]. Will continue to monitor.
--- NOTE | 2021-04-04 04:34 | PC.NURSE ---
[facility] notified this nurse [place] [id number] at [facility] in [place], Dr. Skaggs notified per request
--- NOTE | 2021-04-04 05:06 | PC.NURSE ---
[facility] notified this nurse it would be 2 to 3 hours before transport arrives
[2021-04-04 05:28] LABS: Basophils # 0.1 10^3/uL (0.0-0.1); Basophils % 0.9 %; Eosinophils # 0.1 10^3/uL (0.0-0.8); Eosinophils % 1.4 %; Hematocrit 44.8 % (42.0-52.0); Hemoglobin 14.6 g/dL (11.7-16.6); Lymphocytes # 2.5 10^3/uL (1.5-6.5); Lymphocytes % 27.4 %; Mean Corpuscular HGB Conc 32.6 g/dL (30.0-36.0); Mean Corpuscular Hemoglobin 29.1 pg (28.0-34.0); Mean Corpuscular Volume 89.2 fl (80-94); Mean Platelet Volume 11.2 fL (7.4-10.4); Monocytes # 0.7 10^3/uL (0.2-0.9); Monocytes % 7.6 %; Neutrophils # 5.78 10^3/uL (1.8-8.0); Neutrophils % 62.5 %; Nucleated Red Blood Cells % 0 %; Platelet Count 211 10^3/cmm (130-400); Red Blood Count 5.02 10^6/uL (4.1-5.3); Red Cell Distribution Width 17.8 % (12.1-15.1); White Blood Count 9.2 10^3/uL (4.5-13.0)
[2021-04-04] MEDS: DOBUTamine drip 500 MG/250 ML PREMIX 12.45 MG IV (05:39)
[2021-04-04 05:49] LABS: Alanine Aminotransferase 17 U/L (0-41); Albumin Level 3.2 g/dL (3.5-5.2); Alkaline Phosphatase 66 IU/L (40-130); Anion Gap 18.9 (5-19); Aspartate Amino Transferase 18 U/L (0-40); Blood Urea Nitrogen 18 mg/dL (6-20); Calcium 9.2 mg/dL (8.5-10.5); Carbon Dioxide 23 mmol/L (22-29); Chloride 98 mmol/L (98-107); Globulin 2.3 g/dL (1.3-4.6); Glomerular Filtration Rate 95.3 mL/min (90-130); Glucose 94 mg/dL (65-115); Magnesium 1.9 mg/dL (1.7-2.3); Osmolality Calculated 284 mOsm/kg (285-295); Potassium 3.9 mmol/L (3.5-5.1); Sodium 136 mmol/L (136-145); Total Bilirubin 2.2 mg/dL (0.15-1.2); Total Protein 5.5 g/dL (6.6-8.7)
--- NOTE | 2021-04-04 07:35 | P.TS_ITS ---
Transfer Summary Providers Date of Admission: 03/30/21 03:31 Date of Discharge: 04/04/21 Attending Provider at Admission: Kirk Bustos MD Attending Provider at Transfer: Mohsen Skaggs MD Anticipated Date of Transfer: Anticipated date of transfer: 04/04/21 Receiving Facility & Provider: Receiving Provider: [] Receiving facility: [] Diagnoses at Discharge Discharge Diagnosis (1) CHF (NYHA class IV, ACC/AHA stage D): Status: Acute (2) Hypotension: Status: Acute Qualifiers: Hypotension type: other hypotension type Qualified Code(s): I95.89 - Other hypotension (3) Nonischemic dilated cardiomyopathy: Status: Acute (4) Alcohol abuse: Status: Acute Reason for Visit Reason for Visit: Kidney failure, has had Congestive heart failure Hospital Course Hospital Course So is a 20-year-old white male who presented to the hospital with chest discomfort and shortness of breath. He has a known severe cardiomyopathy, thought to be alcohol related. Cardiology was consulted, diuresis ensued, and Dobutrex initiated. As diagnosis was pre-existing patient was already wearing a LifeVest. Echocardiogram demonstrated an EF around 10 to 15%, moderate severe mitral and tricuspid regurgitation. During his hospital stay he did have some nonsustained ventricular tachycardia, with the longest episode being 4 beats. He was started on Entresto. Beta-karen dose was adjusted. Aldactone added. During his hospital stay he still required intermittent dobutamine, and arrangements for transfer to [facility], for further investigation of his cardiomyopathy in this very young individual for possible other procedures to improve outcome. Dr. Blanchard contacted Dr. Matute regarding the transfer and he was excepted on April 04. Physical Exam Narrative: EXAM NARRATIVE: General exam no distress, currently on dobutamine drip Neck supple Cardiovascular regular rate and rhythm with gallop and 2/6 systolic murmur Lungs currently clear Abdomen is soft Extremities no cyanosis clubbing or significant edema. Some edema is persistent in his back. TS Data Data Completed and Pending: Completed Studies During Hospitalization Category Date Time Status XR chest 1V wolf ble [id number] Stat Exams 03/29/21 17:01 Completed CV. echo complete * [id number] Routine Ultrasound 03/29/21 18:35 Completed US abdomen comple te* [id number] Routine Ultrasound 03/30/21 10:27 Completed Pending at discharge Category Date Time Status Blood Culture Rou bianka Lab 03/30/21 03:46 Results Labs from last 24 hours 04/04/21 04/04/21 04:20 04:20 WBC 9.2 RBC 5.02 Hgb 14.6 Hct 44.8 MCV 89.2 MCH 29.1 MCHC 32.6 RDW 17.8 H Plt Count 211 MPV 11.2 H Neut % (Auto) 62.5 Lymph % (Auto) 27.4 [place] % (Auto) 7.6 Eos % (Auto) 1.4 Baso % (Auto) 0.9 Neut # (Auto) 5.78 Lymph # (Auto) 2.5 [place] # (Auto) 0.7 Eos # (Auto) 0.1 Baso # (Auto) 0.1 Nucleated RBC % (a uto) 0 Nucleated RBCs # 0.0 Sodium 136 Potassium 3.9 Chloride 98 Carbon Dioxide 23 Anion Gap 18.9 BUN 18 Creatinine 1.0 GFR Calculation 95.3 Glucose 94 Calculated Osmolal ity 284 L Calcium 9.2 Magnesium 1.9 Total Bilirubin 2.2 H AST 18 ALT 17 Alkaline Phosphata se 66 Total Protein 5.5 L Albumin 3.2 L Globulin 2.3 Vitals: Last Vital Signs Temp 98.3 F 04/03/21 15:18 Pulse 90 04/04/21 07:00 Resp 28 H 04/04/21 07:00 BP 105/60 04/04/21 07:00 Pulse Ox 92 04/04/21 07:00 TS Medications Medications Home Medications furosemide 40 mg PO DAILY 03/29/21 [History Confirmed 03/29/21] metoprolol succinate 50 mg PO DAILY 03/29/21 [History Confirmed 03/29/21] Active Medications Acetaminophen (Acetaminophen 325 Mg Tablet) 650 mg PO Q6H PRN PRN Reason: Mild/Mod Pain Or Temp >/= 101 Last Admin: 04/02/21 11:22 Dose: 650 mg Documented by: Bisacodyl (Bisacodyl 5 Mg Tablet) 10 mg PO DAILY PRN; Protocol PRN Reason: Constipation (see protocol) Doxylamine Succinate (Doxylamine 25 Mg Tablet) 25 mg PO Q6H PRN PRN Reason: SLEEP Last Admin: 04/01/21 03:02 Dose: 25 mg Documented by: Enoxaparin Sodium (Enoxaparin 40 Mg/0.4 Ml Syringe) 40 mg SUBCUT Q24H [facility] Last Admin: 04/03/21 08:33 Dose: 40 mg Documented by: Furosemide (Furosemide 10 Mg/Ml Sdv 4ml) 40 mg IVP Q24H [facility] Last Admin: 04/03/21 13:30 Dose: 40 mg Documented by: Guaifenesin/Codeine Phosphate (Guaifenesin-Codeine Udc 10 Ml) 10 ml PO Q4H PRN PRN Reason: COUGH Last Admin: 04/02/21 21:39 Dose: 10 ml Documented by: Dobutamine HCl/Dextrose (Dobutamine Drip) 500 mg in 250 mls @ 12.451 mls/hr IV .Q20H5M [facility]; Protocol Last Admin: 04/04/21 05:39 Dose: 5 mcg/kg/min, 12.45 mls/hr Documented by: Lanolin (Lanolin Oint 7 Gm) 1 applic TOPICAL PRN PRN PRN Reason: DRYNESS Last Admin: 04/02/21 14:24 Dose: 1 applic Documented by: Metoprolol Succinate (Metoprolol Succinate Er (24 Hr) 50 Mg Tablet) 50 mg PO DAILY [facility] Last Admin: 04/03/21 07:48 Dose: 50 mg Documented by: Ondansetron HCl (Ondansetron 2 Mg/Ml Sdv 2 Ml) 4 mg IVP Q8H PRN PRN Reason: vomiting, or N/V if npo Last Admin: 04/03/21 11:00 Dose: 4 mg Documented by: Sacubitril/Valsartan (Sacubitril/Valsartan 24-26 Mg Tablet) 1 each PO BID [facility] Last Admin: 04/03/21 17:09 Dose: 1 each Documented by: Spironolactone (Spironolactone 25 Mg Tablet) 25 mg PO DAILY [facility] Last Admin: 04/03/21 07:48 Dose: 25 mg Documented by: Discharge Plan Discharge Patient Disposition: Xfer Short-Term Hosp Condition: Stable Prescriptions: No Action furosemide 40 mg Tablet 40 mg PO DAILY RF: 0 metoprolol succinate 50 mg Capsule,Sprinkle,Er 24hr 50 mg PO DAILY RF: 0 Discharge Orders: Transfer Out of Facility (Order); Ordered 04/04/21 Ordered By: Mohsen Skaggs Referrals: Niles Boss [Referring] - Transfer Attestations Time Spent in Transfer Care*: greater than 30 min Quality Metrics Clinical Quality Measures: During this hospital stay, did patient experience: None Coding Level of Care Code Acute Branch Manager for [facility] Diagnoses CHF (NYHA class IV, ACC/AHA stage D) I50.84 Hypotension I95.89 Hypotension type: other hypotension type Nonischemic dilated cardiomyopathy I42.0 Alcohol abuse F10.10
[2021-04-04] MEDS: spironolactone 25 mg Tablet PO (07:49)
[2021-04-04] MEDS: enoxaparin 40 mg/0.4 mL Syringe SUBCUT (07:49)
[2021-04-04] MEDS: metoprolol succinate ER (24 HR) 50 mg Tablet PO (07:49)
[2021-04-04] MEDS: sacubitril/valsartan 24-26 mg Tablet 1 EACH PO (07:49)
--- NOTE | 2021-04-04 07:56 | PC.NURSE ---
[facility] arrived to picker box operator patient this am. called and notified- orders to stop dobutamine drip before patient transfers. Patient transferred at 0800 and took his phone with him. Mr. Rizzo verbalized that his aunt would be picking up all of his other belongings later this morning. This nurse called patient's aunt and notified of transfer and belonging to be picked up. Noted to be here in about 15 mins to grab belongings.
== END 2021-04-04 08:01 | disposition short-term general hospital (02) | DRG 314 ==
LOC: ER 03-30 02:24 → ICU 03-30 03:32
PROVIDERS: Family Medicine; Nurse Practitioner Family; Admitting Provider Internal Medicine; Emergency Provider Emergency Medicine; Visit Provider Internal Medicine
DX: I42.6 Alcoholic cardiomyopathy (principal); I50.23 Acute on chronic systolic (congestive) heart failure; E87.2 Acidosis; E87.1 Hypo-osmolality and hyponatremia; I47.2 Ventricular tachycardia; E86.0 Dehydration; F10.21 Alcohol dependence, in remission; N18.2 Chronic kidney disease, stage 2 (mild); I95.9 Hypotension, unspecified; I08.1 Rheumatic disorders of both mitral and tricuspid valves; Z82.49 Family history of ischemic heart disease and other diseases of the circulatory system
CPT/HCPCS: 36415; 71045; 76700; 80053; 80076; 80306; 80307; 81001; 82140; 82803; 82977; 83605; 83690; 83735; 83880; 84100; 84145; 84443; 84484; 85025; 85610; 85651; 85730; 86140; 87040; 87086; 87426; 93005; 93306; 94660; 96365; 96372; 99285; J1250; J1650; J1940; J2405; J3475; J7040

== ENCOUNTER 2021-05-11 22:54 | Emergency (ER) | payer MEDICAID, SELFPAY ==
--- NOTE | 2021-05-11 22:59 | XRR_ITS ---
PROCEDURE INFORMATION: Exam: XR Chest Exam date and time: 05/11/2021 10:59 PM Age: 20 years old Clinical indication: Chest pressure; Patient HX: Chest pain w/ HX of chf; Additional info: Cp TECHNIQUE: Imaging protocol: XR of the chest. Views: 1 view. COMPARISON: CR XR chest 1V portable [id number] 03/29/2021 5:23 PM FINDINGS: Lungs: Visualized portions of the lungs are clear. There is no pulmonary vascular congestion. Pleural spaces: Unremarkable. No pleural effusion. No pneumothorax. Heart/Mediastinum: Heart is within normal limits of size. Bones/joints: Unremarkable. Soft tissues: External monitoring electronics are present. These obscure some portions of the chest. XR/XR chest 1V portable [id number] IMPRESSION: No acute infiltrates.
--- NOTE | 2021-05-11 22:59 | ECG_ITS ---
[facility] Test Date: 2021-05-11 Pat Name: So Brenner Department: Room: Gender: Male Java Swing Developer: : [id number] Requested By: Duke Delarosa Order Number: [id number] Leonard MD: Christian Guidry M.D. Measurements Intervals [place] Rate: 129 P: 59 [place]: 160 QRS: -63 QRSD: 98 T: 66 QT: 392 QTc: 576 Interpretive Statements SINUS TACHYCARDIA INCOMPLETE RIGHT BUNDLE BRANCH BLOCK [90+ ms QRS DURATION, TERMINAL R IN V1/V2, 40+ ms S IN I/aVL/V4/V5/V6] LEFT ANTERIOR FASCICULAR BLOCK [QRS AXIS <= -45, QR IN I, RS IN II] POSSIBLE ANTERIOR MYOCARDIAL INFARCTION , PROBABLY OLD [30 ms Q WAVE IN V3/V4, OR R < 0.2 mV IN V4]Compared to ECG 03/31/2021 11:34:36 Incomplete right bundle-branch block now present Left anterior fascicular block now present Sinus rhythm no longer present Myocardial infarct finding still present Electronically Signed On 05-12-2021 16:01:35 PACKAGE LINE OPERATOR by Christian Guidry M.D. [email or web address]
[2021-05-11 23:07] VITALS: BP 103/68; PULSE 130; RESP 18; TEMP 36.4; O2SAT 99; BMI 22.1
[2021-05-11 23:46] VITALS: PULSE 122; RESP 24; O2SAT 97
--- NOTE | 2021-05-11 23:57 | ED_ITS ---
HPI - Arrhythmia/Palpitations General: Chief Complaint: Arrhythmia/Palpitations Stated Complaint: Conjestive Heart failure\Going in to [facility] Time Seen by Provider: 05/11/21 23:01 Source: patient Mode of arrival: ambulatory Limitations: no limitations History of Present Illness: 20-year-old male has a history of congestive heart failure states that he has been wearing a LifeVest his discharge was from [facility] states that bobby started having some palpitations became concerned he thought he may have went to [facility] but never did receive a defibrillation. He states he started to feel anxious about his heart rate. He states he is actually been doing well with his water weight and has had minimal shortness of breath has had some mild chest pain denies any worsening improving factors. Associated symptoms: Deny nausea or vomiting Review of Systems Const: Denies: fever(s), chills, body aches or change in appetite Eyes: Denies: blurry vision or eye discomfort ENMT: Denies: throat pain or dental pain Card: Reports: chest pain and palpitations Resp: Reports: dyspnea GI: Denies: abdominal pain, nausea, vomiting or diarrhea : Denies: dysuria Musc: Denies: neck pain or back pain Skin/Breast: Denies: rash Neuro: Denies: headache(s) Psych: Denies: depression Heriberto/Lymph: Denies: easy bruising All/Imm: Denies: urticaria PFSH ED PFSH: Family History Mother Congestive heart failure, Onset Age: 40 She had an ICD implantation and of? Congestive heart failure. Grandmother Congestive heart failure, Onset Age: 60 She is diagnosed with congestive heart failure. Details are not available Other CAD (coronary artery disease) Social History Alcohol intake: former Physical Exam Const: COMMON NORMALS: no acute distress, patient oriented x3 and healthy appearing HENMT: COMMON NORMALS: normocephalic and atraumatic HEAD & SCALP: normocephalic and atraumatic Eye: COMMON NORMALS: Equal, round and reactive pupils present and EOMs intact bilaterally PUPIL: Yes Equal, round and reactive pupils present Neck/C-Spine: COMMON NORMALS: full ROM and supple Chest: COMMONS NORMALS: normal inspection of the chest and normal palpation of entire chest wall Resp: COMMON NORMALS: normal respiratory effort, No retractions, No use of accessory muscles and clear to auscultation bilaterally AUSCULTATION: clear to auscultation bilaterally Cardio: COMMON NORMALS: regular rhythm and No murmurs present (Cardio) RATE: tachycardic RHYTHM: regular rhythm GI: COMMON NORMALS: Normal to inspection, nondistended, normoactive bowel sounds present, Soft to palpation, non-tender and no masses PALPATION: Yes Soft to palpation Extremity: COMMON NORMALS: normal to inspection and full ROM Neuro: COMMON NORMALS: patient oriented x3, moves all extremities and no focal motor deficits Psych: COMMON NORMALS: mental status grossly normal, Normal thought process present and cooperative THOUGHT PROCESS: Normal thought process present Skin: COMMON NORMALS: no rashes or lesions noted and no wounds GENERAL SKIN EXAM: no rashes or lesions noted Course Vital Signs: Vital signs: Vital Signs Temperature 97.6 F 05/11/21 23:07 Pulse Rate 119 H 05/12/21 00:11 Respiratory Rate 20 H 05/12/21 00:11 Blood Pressure 107/75 05/12/21 00:11 Pulse Oximetry 96 05/12/21 00:11 MDM - Arrhythmia/Palpitations Medical Decision Making Patient presents for some palpitations in the home he then became anxious and I believe that some of this is anxiety family agrees he feels much improved here after Ativan. Patient's troponin and EKG are normal x-ray shows no signs of failure he has no signs of peripheral edema here. He is continue his meds follow-up with his kiln hand return if worsening he understands agrees to plan. Lab Data : 05/12/21 00:17 05/12/21 00:17 Radiology Impressions Chest X-Ray 05/11/21 22:59 IMPRESSION: No acute infiltrates. Laboratory Results WBC 9.8 10^3/uL (4.5-13.0) 05/12/21 00:17 RBC 5.38 10^6/uL (4.1-5.3) H 05/12/21 00:17 Hgb 15.1 g/dL (11.7-16.6) 05/12/21 00:17 Hct 44.8 % (42.0-52.0) 05/12/21 00:17 MCV 83.3 fl (80-94) 05/12/21 00:17 MCH 28.1 pg (28.0-34.0) 05/12/21 00:17 MCHC 33.7 g/dL (30.0-36.0) 05/12/21 00:17 RDW 20.2 % (12.1-15.1) H 05/12/21 00:17 Plt Count 257 10^3/cmm (130-400) 05/12/21 00:17 MPV 10.7 fL (7.4-10.4) H 05/12/21 00:17 Neut % (Auto) 50.1 % 05/12/21 00:17 Lymph % (Auto) 40.6 % 05/12/21 00:17 [place] % (Auto) 6.9 % 05/12/21 00:17 Eos % (Auto) 1.3 % 05/12/21 00:17 Baso % (Auto) 0.9 % 05/12/21 00:17 Neut # (Auto) 4.89 10^3/uL (1.8-8.0) 05/12/21 00:17 Lymph # (Auto) 4.0 10^3/uL (1.5-6.5) 05/12/21 00:17 [place] # (Auto) 0.7 10^3/uL (0.2-0.9) 05/12/21 00:17 Eos # (Auto) 0.1 10^3/uL (0.0-0.8) 05/12/21 00:17 Baso # (Auto) 0.1 10^3/uL (0.0-0.1) 05/12/21 00:17 Nucleated RBC % (auto) 0 % 05/12/21 00:17 Nucleated RBCs # 0.0 /100WBC 05/12/21 00:17 Sodium 137 mmol/L (136-145) 05/12/21 00:17 Potassium 3.5 mmol/L (3.5-5.1) 05/12/21 00:17 Chloride 99 mmol/L (98-107) 05/12/21 00:17 Carbon Dioxide 22 mmol/L (22-29) 05/12/21 00:17 Anion Gap 19.5 (5-19) H 05/12/21 00:17 BUN 14 mg/dL (6-20) 05/12/21 00:17 Creatinine 1.0 mg/dL (0.7-1.2) 05/12/21 00:17 GFR Calculation 95.3 mL/min (90-130) 05/12/21 00:17 Glucose 116 mg/dL (65-115) H 05/12/21 00:17 Calculated Osmolality 285 mOsm/kg (285-295) 05/12/21 00:17 Calcium 9.2 mg/dL (8.5-10.5) 05/12/21 00:17 Total Bilirubin 1.5 mg/dL (0.15-1.2) H 05/12/21 00:17 AST 15 U/L (0-40) 05/12/21 00:17 ALT 14 U/L (0-41) 05/12/21 00:17 Alkaline Phosphatase 67 IU/L (40-130) 05/12/21 00:17 Troponin T Baseline 10 ng/L (0-15) 05/12/21 00:17 NT-Pro-B Natriuret Pep 9596 pg/mL (0-125) H 05/12/21 00:17 Total Protein 6.9 g/dL (6.6-8.7) 05/12/21 00:17 Albumin 4.8 g/dL (3.5-5.2) 05/12/21 00:17 Globulin 2.1 g/dL (1.3-4.6) 05/12/21 00:17 Ethyl Alcohol < 10 mg/dL (0-10) 05/12/21 00:17 EKG Data EKG 1: I personally reviewed and interpreted this EKG as follows: EKG interpretation date: 05/10/21 EKG interpretation time: 23:04 Interpretation: sinus tach hr [address] or t wave abnormalities qrs 98 qtc 468 Other EKG comments: Chest X-Ray 05/11/21 22:59 IMPRESSION: No acute infiltrates. Discharge Plan Discharge Patient Disposition: Home Clinical Impression: Palpitations, Chest pain Condition: Stable Prescriptions: No Action furosemide 40 mg Tablet 40 mg PO DAILY 0RF metoprolol succinate 50 mg Capsule,Sprinkle,Er 24hr 50 mg PO DAILY 0RF Discharge Orders: Discharge ED (Routine); Ordered 05/12/21 Ordered By: Duke Delarosa Discharge Diet: Advance as tolerated Discharge Activity: Resume usual activity Patient Instructions: Chest Pain (ED) Coding Level of Care Code ED [employer] Panel As[employer] for [facility] Fwd Exam Comprehensive
[2021-05-12 00:11] VITALS: BP 107/75; PULSE 119; RESP 20; O2SAT 96
[2021-05-12] MEDS: LORazepam 2 mg/mL INJ 1 mL 1 MG IVP (00:13)
[2021-05-12 00:25] LABS: Basophils # 0.1 10^3/uL (0.0-0.1); Basophils % 0.9 %; Eosinophils # 0.1 10^3/uL (0.0-0.8); Eosinophils % 1.3 %; Hematocrit 44.8 % (42.0-52.0); Hemoglobin 15.1 g/dL (11.7-16.6); Lymphocytes % 40.6 %; Mean Corpuscular HGB Conc 33.7 g/dL (30.0-36.0); Mean Corpuscular Hemoglobin 28.1 pg (28.0-34.0); Mean Corpuscular Volume 83.3 fl (80-94); Mean Platelet Volume 10.7 fL (7.4-10.4); Monocytes # 0.7 10^3/uL (0.2-0.9); Monocytes % 6.9 %; Neutrophils # 4.89 10^3/uL (1.8-8.0); Neutrophils % 50.1 %; Nucleated Red Blood Cells % 0 %; Platelet Count 257 10^3/cmm (130-400); Red Blood Count 5.38 10^6/uL (4.1-5.3); Red Cell Distribution Width 20.2 % (12.1-15.1); White Blood Count 9.8 10^3/uL (4.5-13.0)
[2021-05-12 00:40] LABS: Troponin(5th) Baseline 10 ng/L (0-15)
[2021-05-12 00:49] LABS: Alanine Aminotransferase 14 U/L (0-41); Albumin Level 4.8 g/dL (3.5-5.2); Alkaline Phosphatase 67 IU/L (40-130); Anion Gap 19.5 (5-19); Aspartate Amino Transferase 15 U/L (0-40); Blood Urea Nitrogen 14 mg/dL (6-20); Calcium 9.2 mg/dL (8.5-10.5); Carbon Dioxide 22 mmol/L (22-29); Chloride 99 mmol/L (98-107); Creatinine Clr Calc Pharmacy 116.0593; Globulin 2.1 g/dL (1.3-4.6); Glomerular Filtration Rate 95.3 mL/min (90-130); Glucose 116 mg/dL (65-115); NT Pro B Type Natriuretic Pept 9596 pg/mL (0-125); Osmolality Calculated 285 mOsm/kg (285-295); Potassium 3.5 mmol/L (3.5-5.1); Sodium 137 mmol/L (136-145); Total Bilirubin 1.5 mg/dL (0.15-1.2); Total Protein 6.9 g/dL (6.6-8.7)
[2021-05-12 00:50] LABS: Alcohol Level < 10 mg/dL (0-10)
[2021-05-12 02:20] VITALS: BP 100/59; PULSE 108; RESP 16; O2SAT 97
== END 2021-05-12 02:21 | disposition home or self-care (01) ==
PROVIDERS: Emergency Provider Emergency Medicine
DX: R00.2 Palpitations (principal); R07.9 Chest pain, unspecified; I50.9 Heart failure, unspecified
CPT/HCPCS: 71045; 80053; 80307; 83880; 84484; 85025; 93005; 96374; 99284; J2060

== ENCOUNTER 2021-06-07 13:00 | Outpatient (CLI) | payer MEDICAID, SELFPAY | END 2021-06-07 13:01 | disposition home or self-care (01) | LOC: SLEEP 06-08 09:14 | PROVIDERS: Visit Provider Clinical Nurse Specialist Adult Health | DX: G47.33 Obstructive sleep apnea (adult) (pediatric) (principal) | CPT/HCPCS: G0399 ==

== ENCOUNTER 2021-07-07 20:00 | Outpatient (CLI) | payer MEDICAID, SELFPAY | END 2021-07-07 20:01 | disposition home or self-care (01) | LOC: SLEEP 07-08 09:18 | PROVIDERS: Visit Provider Clinical Nurse Specialist Adult Health | DX: G47.10 Hypersomnia, unspecified (principal); R06.83 Snoring; R53.83 Other fatigue | CPT/HCPCS: 95810 ==

== ENCOUNTER 2021-10-12 19:43 | Emergency (ER) | payer MEDICAID, SELFPAY ==
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
[2021-10-12 19:56] VITALS: BP 139/89; PULSE 106; RESP 16; TEMP 37.1; O2SAT 97; BMI 26.6
[2021-10-12 21:06] VITALS: PULSE 104; RESP 16; O2SAT 98
[2021-10-12] MEDS: midazolam 1 mg/mL INJ 2 mL IVP (21:28)
[2021-10-12 21:45] VITALS: BP 137/89; PULSE 107; RESP 16; O2SAT 97
== END 2021-10-12 21:45 | disposition home or self-care (01) ==
PROVIDERS: Emergency Provider Emergency Medicine; PCP Clinical Nurse Specialist Adult Health
DX: S09.8XXA Other specified injuries of head, initial encounter (principal); V89.2XXA Person injured in unspecified motor-vehicle accident, traffic, initial encounter; S00.81XA Abrasion of other part of head, initial encounter
CPT/HCPCS: 70450; 71250; 72125; 74176; 96374; 99285; J2250

== ENCOUNTER → 2021-10-29 07:41 | Outpatient (BNVA) | payer MEDICAID, SELFPAY | PROVIDERS: PCP Clinical Nurse Specialist Adult Health; Visit Provider Clinical Nurse Specialist Adult Health | DX: F32.9 Major depressive disorder, single episode, unspecified (principal); F41.1 Generalized anxiety disorder; N18.2 Chronic kidney disease, stage 2 (mild); I42.0 Dilated cardiomyopathy; I50.20 Unspecified systolic (congestive) heart failure; I50.84 End stage heart failure; I42.6 Alcoholic cardiomyopathy; I48.91 Unspecified atrial fibrillation | CPT/HCPCS: 80053; 83036; 85025 ==

== ENCOUNTER → 2022-04-18 09:53 | Outpatient (BNVA) | payer MEDICAID, SELFPAY | PROVIDERS: PCP Clinical Nurse Specialist Adult Health; Visit Provider Clinical Nurse Specialist Adult Health | DX: N18.2 Chronic kidney disease, stage 2 (mild) (principal); F41.1 Generalized anxiety disorder; I48.0 Paroxysmal atrial fibrillation | CPT/HCPCS: 80053 ==

== ENCOUNTER → 2022-10-18 08:46 | Outpatient (BNVA) | payer MEDICAID, SELFPAY | PROVIDERS: PCP Clinical Nurse Specialist Adult Health; Visit Provider Clinical Nurse Specialist Adult Health | DX: N18.2 Chronic kidney disease, stage 2 (mild) (principal); F41.1 Generalized anxiety disorder; I48.0 Paroxysmal atrial fibrillation | CPT/HCPCS: 80053; 85025 ==

== ENCOUNTER → 2023-03-16 10:12 | Outpatient (BNVA) | payer MEDICAID, SELFPAY | PROVIDERS: PCP Clinical Nurse Specialist Adult Health; Visit Provider Nurse Practitioner Family | DX: J02.9 Acute pharyngitis, unspecified (principal); J06.9 Acute upper respiratory infection, unspecified | CPT/HCPCS: 87880 ==

== ENCOUNTER → 2023-04-21 08:29 | Outpatient (BNVA) | payer MEDICAID, SELFPAY | PROVIDERS: PCP Clinical Nurse Specialist Adult Health; Visit Provider Clinical Nurse Specialist Adult Health | DX: I50.84 End stage heart failure (principal); Z79.899 Other long term (current) drug therapy | CPT/HCPCS: 80053; 85025 ==

== ENCOUNTER → 2024-05-31 09:24 | Outpatient (BNVA) | payer MEDICAID, SELFPAY | PROVIDERS: PCP Clinical Nurse Specialist Adult Health; Visit Provider Clinical Nurse Specialist Adult Health | DX: I42.6 Alcoholic cardiomyopathy (principal); R79.89 Other specified abnormal findings of blood chemistry; N18.2 Chronic kidney disease, stage 2 (mild); I50.84 End stage heart failure | CPT/HCPCS: 80053; 85025 ==